=== PATIENT | female | born 1940 | race Caucasian/White ===

== ENCOUNTER → 2016-05-26 | Outpatient (CLI) | payer MEDICARE, BC ==
[2016-05-26 16:27] LABS: Blood Urea Nitrogen 17 mg/dL (7-17); Non-African American GFR(MDRD) >60 (>60 ml/min/1.73 sqM)
--- NOTE | 2016-05-27 08:06 | CT ---
EXAMINATION TYPE: CT angio neck DATE OF EXAM: 05/26/2016 5:02 PM COMPARISON: NONE HISTORY: Pt states of bilateral carotid stenosis. CT DLP: 192.7 mGycm Automated exposure control for dose reduction was used. TECHNIQUE: Performed with IV Contrast, patient injected with 65 mL of Omnipaque 350. . FINDINGS: There is extensive atherosclerotic plaque involving the left carotid bifurcation and proximal left IC A measuring approximately 75-80% stenosis. There is mild atherosclerotic plaque of the left common ca rotid artery. Right carotid bifurcation demonstrates extensive plaque involving the carotid bifurcation with approx imately 70% stenosis. Mild atherosclerotic change of the origin of the great vessels and aortic arch noted. There is degenerative change of the spine with facet arthropathy. Lung apices are clear. IMPRESSION: THERE IS SIGNIFICANT BILATERAL STENOSES INVOLVING THE PROXIMAL ICA BILATERALLY GREATER ON THE LEFT. G IVEN THE LIMITATION OF THE EXAM CORRELATION WITH ULTRASOUND IS RECOMMENDED FOR CONFIRMATION.
== END | disposition home or self-care (01) ==
LOC: RADCTMAIN 15:55
PROVIDERS: ATTEND Internal Medicine Clinical Cardiac Electrophysiology
DX: I65.23 Occlusion and stenosis of bilateral carotid arteries (principal)
CPT/HCPCS: 82565; 84520; 70498; 36415; Q9967

== ENCOUNTER 2016-06-23 06:28 | Day surgery (SDC) | payer MEDICARE, BC ==
[2016-06-17 16:04] VITALS: BMI 26.6
[~2016-06-23 06:28] MED LIST: SODIUM CHLORIDE 0.9% 1,000 ML IV SCH
[2016-06-23 07:13] LABS: Basophils % (A) 1 %; CH 32.3; CHCM 33.9; Eosinophils # (A) 0.3 k/uL (0-0.7); Eosinophils % (A) 5 %; HCT 38.3 % (34.0-46.0); HGB 12.8 gm/dL (11.4-16.0); Luc # (Auto) 0.14; Luc % (Auto) 3; Lymphocytes # (A) 1.3 k/uL (1.0-4.8); Lymphocytes % (A) 25 %; MCH 31.9 pg (25.0-35.0); MCHC 33.4 g/dL (31.0-37.0); MCV 95.5 fL (80.0-100.0); Mean Platelet Volume 6.9; Monocytes # (A) 0.3 k/uL (0-1.0); Monocytes % (A) 6 %; Neutrophils # (A) 3.2 k/uL (1.3-7.7); Neutrophils % (A) 61 %; RBC 4.01 m/uL (3.80-5.40); RDW 13.1 % (11.5-15.5); WBC 5.3 k/uL (3.8-10.6); WBC (Perox) 5.24
[2016-06-23 07:16] VITALS: RESP 16; TEMP 98.7
[2016-06-23 07:31] LABS: Potassium 4.5 mmol/L (3.5-5.1)
[2016-06-23] MEDS: MIDAZOLAM 2 MG/2 ML VIAL IV ONE ×2 (08:35→09:00)
[2016-06-23] MEDS: LIDOCAINE 2% INJ 20 MG/ML SQ ONE ×2 (08:42→08:56)
[2016-06-23] MEDS ORDERED: IOHEXOL 350 MG/ML 100 ML BOTTLE INJ ONE (09:29)
[2016-06-23] MEDS ORDERED: SODIUM CHLORIDE 0.9% 1,000 ML IV SCH (09:30)
--- NOTE | 2016-06-23 10:10 | IR ---
EXAMINATION TYPE: IR angio aortic arch DATE OF EXAM: 06/23/2016 10:06 AM COMPARISON: NONE HISTORY: Peripheral vascular occlusive disease. Fluoroscopy was applied to the referring clinician. See dictated report from cardiology.
[2016-06-23] MEDS ORDERED: ACETAMINOPHEN TAB 325 MG TAB PO PRN (11:25)
[2016-06-23 16:03] VITALS: BP 156/75; PULSE 71
--- NOTE | 2016-06-23 21:07 | PCN ---
DATE OF PROCEDURE: 06/23/2016 PERFORMING PHYSICIAN: Otis Valentine M.D., cleaning laborer. PROCEDURES PERFORMED: 1. Aortic arch angiogram. 2. Selective right and left carotid angiogram. 3. Bilateral iliac angiogram. INDICATION: This is a pleasant 75-year-old female patient who sees Dr. Mancia as an outpatient who underwent a carotid duplex study which showed intermediate disease. She underwent carotid MRA which showed severe bilateral disease. The carotid angiogram today ( ) APPROACH: Right and left common femoral arteries. COMPLICATIONS: None. LEVEL OF SEDATION: Moderate. PROCEDURE DESCRIPTION: After obtaining informed consent, the patient was brought to the cardiac mason tender restoration labor. The right common femoral artery was cannulated using micropuncture technique. The micropuncture wire passed easily, then I placed a 4 [place]ian micropuncture sheath in the right common femoral artery. I did selective right common femoral artery angiogram, which showed that the micropuncture sheath was above the inguinal ligament, so I decided to pull the sheath out and apply pressure for 10 minutes. After we were assured that there was hemostasis, I accessed the left common femoral artery using ultrasound guidance. The micropuncture wire passed easily, then I placed a 5 [place]ian sheath in the left common femoral artery. Subsequently I did an aortic arch angiogram using a 5 [place]ian pigtail catheter. Then I did selective right and left carotid angiogram using JB2 catheter. The procedure was completed without any complication. SELECTIVE PERIPHERAL ANGIOGRAM: 1. The aortic arch is a type II aortic arch. It is a calcified arch. 2. The right carotid system. The right common carotid artery appeared to be angiographically normal. The right internal carotid artery by the takeoff from the right common has disease in the range of 50%. The right external carotid artery appeared to have mild disease only. 3. The left carotid system. The left common carotid artery appeared to be angiographically normal. The left internal carotid artery by the ostium has disease that seems to be in the range of 60% to 70%. The left external carotid artery appeared to have a tight lesion in the range 70% to 80%. 4. Common iliac angiogram. The right common iliac artery is angiographically normal and the right external iliac artery appeared to be occluded distally just by the inguinal ligament. The left common and left external iliac arteries are angiographically normal. CONCLUSION: 1. Intermediate bilateral internal carotid disease. 2. Type II aortic arch. 3. Occluded right common femoral artery. POST-PROCEDURE MANAGEMENT: 1. Maximize medical treatment. 2. Followup with the patient.
== END 2016-06-23 16:02 | disposition home or self-care (01) ==
LOC: CATHCVL 06:28
PROVIDERS: ATTEND Internal Medicine Interventional Cardiology
DX: I65.23 Occlusion and stenosis of bilateral carotid arteries (principal); I10 Essential (primary) hypertension; I70.0 Atherosclerosis of aorta; Q27.8 Other specified congenital malformations of peripheral vascular system; Z82.3 Family history of stroke; Z87.891 Personal history of nicotine dependence; Z95.5 Presence of coronary angioplasty implant and graft; I73.9 Peripheral vascular disease, unspecified; E78.5 Hyperlipidemia, unspecified; Z79.82 Long term (current) use of aspirin; Z79.899 Other long term (current) drug therapy; Z88.2 Allergy status to sulfonamides
CPT/HCPCS: 36140; 75716; 36222; 80051; 85025; 99152; 99153 ×3; C1769 ×4; C1894; J2001; J2250; Q9967; 75625

== ENCOUNTER 2016-10-02 17:16 | Emergency (ER) | payer MEDICARE, BC ==
[2016-10-02 17:23] VITALS: RESP 18
--- NOTE | 2016-10-02 17:34 | ED ---
Fall HPI - General Chief Complaint: Fall Stated Complaint: Fall Time Seen by Provider: 10/02/16 17:24 Source: patient, RN notes reviewed Mode of arrival: ambulatory - History of Present Illness Initial Comments: Patient is a 75-year-old female presents to the emergency room for evaluation of a fall injury. Patient states she was walking along the sidewalk and tripped and fell landing on her face and catching herself with her bilateral hands. Patient denies loss of consciousness. Patient states that her nose hit the pavement. Patient states she is pain over her nose and has an abrasion over her chin. Patient also states that she's having right and left hand pain from catching herself. Patient denies headache or dizziness. Patient denies changes in vision. Patient denies neck pain. Patient denies ringing ears. Patient denies chest pain or shortness of breath. Patient's daughter is present with patient. Patient's daughter states that she did not witness the incident happen. Patient's daughter states that she noticed patient was bleeding when she came into the house. Patient states that she was bleeding from her nose but that has subsided. Patient does admit that she is on Plavix. Patient denies any other injuries during incident. - Related Data Home Medications Medication Instructions Recorded Confirmed Aspirin [Adult Low Dose Aspirin EC] 81 mg PO BID 06/17/16 10/02/16 Atenolol [Tenormin] 50 mg PO BID 06/17/16 10/02/16 Atorvastatin [Lipitor] 80 mg PO HS 06/17/16 10/02/16 Cholecalciferol [Vitamin D3] 2,000 units PO DAILY 06/17/16 10/02/16 Furosemide [Lasix] 20 mg PO MOWEFR 06/17/16 10/02/16 Lisinopril [Zestril] 20 mg PO BID 06/17/16 10/02/16 Nitroglycerin Sl Tabs [Nitrostat] 0.4 mg SUBLINGUAL DIRECTED PRN 06/17/16 Clopidogrel Bisulfate [Plavix] 75 mg PO DAILY 10/02/16 10/02/16 Multivitamin [Multivitamins Adult 2 tab PO HS 10/02/16 10/02/16 Gummies] Previous Rx's Medication Instructions Recorded Amoxicillin/Potassium Clav 1 each PO Q12HR #20 tab 10/02/16 [Augmentin 875-125 Tablet] Allergies Allergy/AdvReac Type Severity Reaction Status Date / Time sulfamethoxazole AdvReac Nausea & Verified 10/02/16 18:13 [From Bactrim] Vomiting & Diarrhea trimethoprim [From Bactrim] AdvReac Nausea & Verified 10/02/16 18:13 Vomiting & Diarrhea Review of Systems ROS Statement: Those systems with pertinent positive or pertinent negative responses have been documented in the HPI. ROS Other: All systems not noted in ROS Statement are negative. Past Medical History Past Medical History: Atrial Fibrillation, Coronary Artery Disease (CAD), Chest Pain / Angina, Hypertension, Osteoarthritis (OA) Additional Past Medical History / Comment(s): varicose veins, lower lobe of lung "collapsed", gallstones, History of Any Multi-Drug Resistant Organisms: None Reported Past Surgical History: Breast Surgery, Heart Catheterization With Stent, Tubal Ligation Additional Past Surgical History / Comment(s): two cardiac stents, rt breast lumpectomy Past Anesthesia/Blood Transfusion Reactions: Motion Sickness, Postoperative Nausea & Vomiting (PONV) Date of Last Stent Placement:: 10/2007 Past Psychological History: No Psychological Hx Reported Smoking Status: Former smoker Past Alcohol Use History: None Reported Additional Past Alcohol Use History / Comment(s): quit smoking 2003, smoked for 40 yrs, 1 PPD Past Drug Use History: None Reported - Past Family History Mother Family Medical History: No Reported History Brother(s) Family Medical History: Cancer General Exam - General Exam Comments Initial Comments: Sitting in exam room, no acute distress. Limitations: no limitations General appearance: alert, in no apparent distress Expanded Head exam: Present: abrasion (Abrasion over nasal bridge and over chin), general tenderness (Tenderness on palpating over nasal bridge) Eye exam: Present: normal appearance, PERRL, EOMI Pupils: Present: normal accommodation Neck exam: Present: normal inspection, full ROM. Absent: tenderness, lymphadenopathy Respiratory exam: Present: normal lung sounds bilaterally. Absent: respiratory distress Cardiovascular Exam: Present: regular rate, normal rhythm, normal heart sounds Left Hand Wrist exam: Present: full ROM, tenderness (Tenderness and swelling on palpating over distal forearm/wrist), swelling Neuro motor exam: Present: wrist extension intact, thumb opposition intact, thumb IP flexion intact, thumb adduction intact, fingers 2-5 abduction intact Vascular: Present: normal capillary refill (Capillary refill less than 2 seconds ), radial pulse (2+), ulnar pulse (2+) Right Hand Wrist exam: Present: full ROM, tenderness (Tenderness and swelling over the fourth and fifth MCP joint), swelling. Absent: normal inspection Neuro motor exam: Present: wrist extension intact, thumb opposition intact, thumb IP flexion intact, thumb adduction intact, fingers 2-5 abduction intact Vascular: Present: normal capillary refill (Capillary refill less than 2 seconds ), radial pulse (2+), ulnar pulse (2+) Back exam: Present: normal inspection Neurological exam: Present: alert, oriented X3, CN II-XII intact Expanded Patient oriented to: Present: person, place, time Speech: Present: fluid speech Sensory exam: Upper Extremity Light Touch: Normal, Lower Extremity Light Touch: Normal Motor strength exam: RUE: 5, LUE: 5, RLE: 5, LLE: 5 Eye Response: (4) open spontaneously Motor Response: (6) obeys commands Verbal Response: (5) oriented Psychiatric exam: Present: normal affect, normal mood Skin exam: Present: warm, dry, intact, normal color. Absent: rash Course Vital Signs 10/02/16 17:18 Temperature 100 F H Pulse Rate 87 Respiratory 18 Rate Blood Pressure 192/91 O2 Sat by Pulse 95 Oximetry Medical Decision Making - Medical Decision Making Patient is a 80-year-old female presents to the emergency room for evaluation of fall injury. Brain/C-spine CT negative for any acute processes. A facial CT significant for left nasal fracture. Patient be placed on Augmentin and advised to follow-up with ear, nose and throat specialist. Bilateral hand and wrist x-rays negative for any acute fractures or dislocations. Discussed with patient. Patient states she understands everything that was discussed with her. Return parameters discussed. Case discussed with Dr. Davis. - Radiology Data Radiology results: report reviewed, image reviewed Disposition Clinical Impression: Fall, Nasal fracture, Traumatic hematoma of right hand Disposition: HOME SELF-CARE Condition: Good Instructions: Nasal Fracture (ED), Fall Prevention for Older Adults (ED) Additional Instructions: Take antibiotics as directed. Ice on and off for 10-15 minutes for the next 24- 48 hours. Please follow-up with ear, nose and throat specialist on Tuesday. If hand pain continues for the next 7-10 days please follow up with primary care provider for reevaluation. If new symptoms develop or symptoms worsen, please return to the ER. Prescriptions: Amoxicillin/Potassium Clav [Augmentin 875-125 Tablet] 1 each PO Q12HR #20 tab Referrals: Rg Loo MD [Primary Care Provider] - 1-2 days Zackery Briones MD [STAFF PHYSICIAN] - 1-2 days Time of Disposition: 18:45
[2016-10-02] MEDS ORDERED: DIPH,PERTUS(ACELL)TETVAC-LF 0.5 ML VIAL IM ONE (17:37)
--- NOTE | 2016-10-02 18:21 | CT ---
EXAMINATION TYPE: CT brain nisha wo con DATE OF EXAM: 10/02/2016 6:10 PM COMPARISON: NONE HISTORY: 75-year-old female fell and hit face. Abrasions to the bridge of the nose and chin. Patien t denies head or neck complaints. CT DLP: 1218.6 mGycm Automated exposure control for dose reduction was used. Technique: Examination of the head was done in axial plane without intravenous contrast. Coronal and sagittal reconstructions performed. CT of the cervical spine was obtained in axial plane without intravenous injection of contrast mater ial. Coronal and sagittal reformatted images were obtained from the axial views for evaluation of f ractures, spinal alignment and canal. FINDINGS: Head: There is no evidence of acute intracranial hemorrhage, acute ischemic changes, mass, mass-effect, or extra-axial fluid collection. There is no effacement of cerebral sulci or basal subarachnoid cister ns. There is no hydrocephalus. There is no midline shift. Lui-white matter distinction is preserv ed. No calvarial fracture. Mastoid air cells are pneumatized. Cervical spine: No craniocervical junction abnormality, predental space widening, or prevertebral soft tissue swellin g. There is degenerative change at the C1 dens articulation as well as at the cranio-occipital articulat ion. Preserved alignment of the cervical spine with reversal of the normal cervical lordosis. Mild multile susanne degenerative disc disease. There is disc osteophyte complex at C6-C7 which causes mild spinal can al stenosis. Scattered facet and uncovertebral joint degenerative change. This causes very minimal mild neuroforaminal stenoses in the mid to lower cervical spine. There is a 1 cm nodule within the left vallecular space, axial image 44 that can be correlated with d irect visualization. No acute fracture of the cervical spine. Sagittal and coronal reformatted images confirm above findings. COMBINED IMPRESSION: 1. No acute intracranial abnormality seen. 2. No acute fracture or malalignment of the cervical spine. 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 Mild spinal canal stenosis at C6-C7 in variable mild neuroforaminal stenoses. 3. A 1 cm nodule within the left vallecular space was present on 05/26/2016 and is suspected to repres ent a mucosal retention cyst. This can be correlated with direct visualization.
--- NOTE | 2016-10-02 18:28 | CT ---
EXAMINATION TYPE: CT facial bones wo con DATE OF EXAM: 10/02/2016 6:12 PM COMPARISON: NONE HISTORY: 75-year-old female fell and hit face. Abrasions to the bridge of the nose and chin. Patien t denies head or neck complaints. TECHNIQUE: Contiguous axial scanning of the facial bones without IV contrast. Coronal performed. CT DLP: 880.7 mGycm Automated exposure control for dose reduction was used. FINDINGS: There is a mildly depressed and mildly angulated multi segmental fracture of the left nasal bone with associated soft tissue contusion and hemorrhagic debris within the nasal cavity. Rightward nasal sep deacon deviation was present previously Moderate chronic mucosal thickening within the ethmoid air cells. No additional facial bone fracture. Orbits and globes appear intact. The patient is edentulous. Puja ble remains intact. IMPRESSION: MULTISEGMENTAL, MILDLY DEPRESSED FRACTURES OF THE LEFT NASAL BONE. ASSOCIATED SOFT TISSUE CONTUSION A ND HEMORRHAGIC DEBRIS WITHIN THE NASAL CAVITY.
--- NOTE | 2016-10-02 18:31 | XR ---
EXAMINATION TYPE: XR wrist complete 4 views BILATERAL, XR hand complete 3 views bilateral DATE OF EXAM: 10/02/2016 6:09 PM COMPARISON: NONE HISTORY: 75-year-old female bilateral pain after fall FINDINGS: Wrists: On both sides, the radiocarpal and distal radioulnar joints as well as the midcarpal compartments iris ear intact. No acute fracture, subluxation, or dislocation. Hands: Degenerative changes at the base of the thumb on both sides, right greater than left. Prominent soft tissue contusion overlying the patient's right knuckles. Osteoarthritic changes throughout the DIP joints and to a lesser extent within the PIP joints. No acute fracture, subluxation, or dislocation. IMPRESSION: Osteoarthritic changes throughout both hands. Wrists and hands without acute osseous abnormality seen .
[2016-10-02 18:59] VITALS: BP 192/88; PULSE 82; TEMP 97.9
== END 2016-10-02 18:59 | disposition home or self-care (01) ==
LOC: EC 17:16
DX: S02.2XXA Fracture of nasal bones, initial encounter for closed fracture (principal); S60.221A Contusion of right hand, initial encounter; S00.81XA Abrasion of other part of head, initial encounter; M79.89 Other specified soft tissue disorders; M79.642 Pain in left hand; I10 Essential (primary) hypertension; I25.10 Atherosclerotic heart disease of native coronary artery without angina pectoris; M19.90 Unspecified osteoarthritis, unspecified site; Z87.891 Personal history of nicotine dependence; Z79.82 Long term (current) use of aspirin; Z79.02 Long term (current) use of antithrombotics/antiplatelets; Z79.899 Other long term (current) drug therapy; Z88.1 Allergy status to other antibiotic agents; Z23 Encounter for immunization; Z86.79 Personal history of other diseases of the circulatory system; W01.198A Fall on same level from slipping, tripping and stumbling with subsequent striking against other object, initial encounter; Y93.01 Activity, walking, marching and hiking; Y92.480 Sidewalk as the place of occurrence of the external cause
CPT/HCPCS: 70450; 70486; 72125; 90471; 90715; 99284

== ENCOUNTER → 2016-10-22 | Outpatient (CLI) | payer MEDICARE, BC ==
[2016-10-22 14:34] LABS: Blood Urea Nitrogen 24 mg/dL (7-17); Non-African American GFR(MDRD) >60 (>60 ml/min/1.73 sqM)
--- NOTE | 2016-10-22 15:42 | CT ---
EXAMINATION TYPE: CT chest w con DATE OF EXAM: 10/22/2016 COMPARISON: Chest x-ray from one week ago. CT abdomen and pelvis March 13, 2015. HISTORY: Chest pain and shortness of breath. CT DLP: 601.00 mGycm. Automated Exposure Control for Dose Reduction was Utilized. TECHNIQUE: CT scan of the thorax is performed following with IV Contrast, patient injected with 100 mL of Omnipaque 300. FINDINGS: LUNGS: Mild apical scarring is present bilaterally. There is calcified pleural plaques medially and i nferiorly and posteriorly in the right lower lung. Adjacent to posterior plaque there is masslike con solidation measuring 4.7 x 1.8 cm on axial image 39 and coronal image 71 with broad-based pleural com ponent. Differential includes round atelectasis especially given adjacent pleural calcifications and mild pleural thickening and/or tiny effusion. Finding is presumed benign as comparison CT abdomen pel vis March 13, 2015 shows stable similar findings. MEDIASTINUM: There are no greater than 1 cm hilar or mediastinal lymph nodes. There are subcentimeter prevascular and paratracheal lymph nodes. No pericardial effusion is seen. Coronary artery calcif ication is present which is noted marker for coronary artery disease. There is moderate atherosclerot ic change of aorta extending into branch vessels. OTHER: Slightly asymmetric soft tissue laterally right breast favors asymmetric fibroglandular tissue but can be correlated with outside mammograms if desired. IMPRESSION: 1. Three-vessel coronary artery calcification is present which is noted marker for coronary artery di sease. There is slightly more prominent proximal LAD could reflect coronary stent. Clinical correlati on advised. 2. Calcified pleural plaques right lower lung redemonstrated could reflect product of old trauma or a sbestos exposure. Clinical correlation advised. Adjacent suspicious area on x-ray is unchanged from O ctober 2014 CT and thus presumed benign.
== END | disposition home or self-care (01) ==
LOC: RADCTMAIN 13:41
PROVIDERS: ATTEND Internal Medicine Critical Care Medicine
DX: J92.9 Pleural plaque without asbestos (principal); I25.10 Atherosclerotic heart disease of native coronary artery without angina pectoris; Z88.2 Allergy status to sulfonamides
CPT/HCPCS: 82565; 84520; 71260; 36415; Q9967

== ENCOUNTER 2016-12-10 07:14 | Inpatient (IN) | payer MEDICARE, BC ==
[2016-12-10] MEDS ORDERED: ONDANSETRON 4 MG/2 ML VIAL IVP STA (07:39)
[2016-12-10] MEDS ORDERED: MORPHINE SULFATE 4 MG/ML SYRINGE IV STA (07:39)
[2016-12-10] MEDS ORDERED: SODIUM CHLORIDE 0.9% 1,000 ML IV STA ×3 (07:39→10:17)
[2016-12-10] MEDS ORDERED: RX INFO: IV CONTRAST WAS GIVEN 1 EACH MISC MISCELLANE PRN (07:39)
[2016-12-10 08:03] LABS: Basophils % (A) 0 %; CH 32.1; CHCM 33.3; Eosinophils % (A) 0 %; HCT 43.4 % (34.0-46.0); HDW 2.53; HGB 14.5 gm/dL (11.4-16.0); Luc # (Auto) 0.04; Luc % (Auto) 0; Lymphocytes # (A) 0.5 k/uL (1.0-4.8); Lymphocytes % (A) 3 %; MCH 32.4 pg (25.0-35.0); MCHC 33.4 g/dL (31.0-37.0); MCV 96.8 fL (80.0-100.0); Monocytes # (A) 0.3 k/uL (0-1.0); Monocytes % (A) 2 %; Neutrophils # (A) 14.3 k/uL (1.3-7.7); Neutrophils % (A) 94 %; RBC 4.48 m/uL (3.80-5.40); RDW 13.8 % (11.5-15.5); WBC 15.2 k/uL (3.8-10.6); WBC (Perox) 14.84
[2016-12-10 08:09] LABS: ALT 78 U/L (9-52); AST 66 U/L (14-36); Alkaline Phosphatase 97 U/L (38-126); Anion Gap 13 mmol/L; Blood Urea Nitrogen 23 mg/dL (7-17); Calcium 9.6 mg/dL (8.4-10.2); Carbon Dioxide 26 mmol/L (22-30); Chloride 101 mmol/L (98-107); Glucose 236 mg/dL (74-99); Non-African American GFR(MDRD) 51 (>60 ml/min/1.73 sqM); Phosphorus 5.5 mg/dL (2.5-4.5); Potassium 4.9 mmol/L (3.5-5.1); Sodium 140 mmol/L (137-145); Total Bilirubin 1.1 mg/dL (0.2-1.3); Total Protein 7.3 g/dL (6.3-8.2)
--- NOTE | 2016-12-10 08:13 | ED ---
General Adult HPI - General Chief complaint: Nausea/Vomiting/Diarrhea Stated complaint: ABD pain Time Seen by Provider: 12/10/16 07:34 Source: patient, RN notes reviewed, old records reviewed Mode of arrival: ambulatory Limitations: no limitations - History of Present Illness Initial comments: This is a 72-year-old female year with nausea vomiting, patient has history of heart disease history of surgery. No fevers, no diarrhea. Mainly dry heaving. Patient also complaining of abdominal pain. she also contacts, no family members with similar complaints - Related Data Home Medications Medication Instructions Recorded Confirmed Aspirin [Adult Low Dose Aspirin EC] 81 mg PO HS 06/17/16 12/10/16 Atenolol [Tenormin] 50 mg PO BID 06/17/16 12/10/16 Atorvastatin [Lipitor] 80 mg PO HS 06/17/16 12/10/16 Cholecalciferol [Vitamin D3] 2,000 units PO DAILY 06/17/16 12/10/16 Furosemide [Lasix] 20 mg PO MOWEFR 06/17/16 12/10/16 Lisinopril [Zestril] 20 mg PO BID 06/17/16 12/10/16 Nitroglycerin Sl Tabs [Nitrostat] 0.4 mg SUBLINGUAL DIRECTED PRN 06/17/16 Clopidogrel Bisulfate [Plavix] 75 mg PO DAILY 10/02/16 12/10/16 Multivitamin [Multivitamins Adult 2 tab PO DAILY 10/02/16 12/10/16 Gummies] Allergies Allergy/AdvReac Type Severity Reaction Status Date / Time latex Allergy Rash/Hives Verified 12/10/16 08:23 minocycline AdvReac Nausea & Verified 12/10/16 08:23 Vomiting & Diarrhea sulfamethoxazole AdvReac Nausea & Verified 12/10/16 08:23 [From Bactrim] Vomiting & Diarrhea trimethoprim [From Bactrim] AdvReac Nausea & Verified 12/10/16 08:23 Vomiting & Diarrhea Review of Systems ROS Statement: Those systems with pertinent positive or pertinent negative responses have been documented in the HPI. ROS Other: All systems not noted in ROS Statement are negative. Past Medical History Past Medical History: Atrial Fibrillation, Coronary Artery Disease (CAD), Chest Pain / Angina, Hypertension, Osteoarthritis (OA) Additional Past Medical History / Comment(s): varicose veins, lower lobe of lung "collapsed", gallstones, History of Any Multi-Drug Resistant Organisms: MRSA Date of last positivie culture/infection: 11/18/16 MDRO Source:: Head Past Surgical History: Breast Surgery, Heart Catheterization With Stent, Tubal Ligation Additional Past Surgical History / Comment(s): two cardiac stents, rt breast lumpectomy Past Anesthesia/Blood Transfusion Reactions: Motion Sickness, Postoperative Nausea & Vomiting (PONV) Date of Last Stent Placement:: 10/2007 Past Psychological History: No Psychological Hx Reported Smoking Status: Former smoker Past Alcohol Use History: None Reported Past Drug Use History: None Reported - Past Family History Mother Family Medical History: No Reported History Brother(s) Family Medical History: Cancer General Exam Limitations: no limitations General appearance: alert, in no apparent distress Head exam: Present: atraumatic, normocephalic, normal inspection Eye exam: Present: normal appearance, PERRL, EOMI. Absent: scleral icterus, conjunctival injection, periorbital swelling ENT exam: Present: normal exam, mucous membranes moist Neck exam: Present: normal inspection. Absent: tenderness, meningismus, lymphadenopathy Respiratory exam: Present: normal lung sounds bilaterally. Absent: respiratory distress, wheezes, rales, rhonchi, stridor Cardiovascular Exam: Present: regular rate, normal rhythm, normal heart sounds. Absent: systolic murmur, diastolic murmur, rubs, gallop, clicks GI/Abdominal exam: Present: soft, normal bowel sounds. Absent: distended, tenderness, guarding, rebound, rigid Extremities exam: Present: normal inspection, full ROM, normal capillary refill. Absent: tenderness, pedal edema, joint swelling, calf tenderness Back exam: Present: normal inspection Neurological exam: Present: alert, oriented X3, CN II-XII intact Psychiatric exam: Present: normal affect, normal mood Skin exam: Present: warm, dry, intact, normal color. Absent: rash Course Vital Signs 12/10/16 12/10/16 12/10/16 07:18 08:09 09:09 Temperature 98.5 F Pulse Rate 86 83 83 Respiratory 18 18 18 Rate Blood Pressure 182/84 160/72 182/67 O2 Sat by Pulse 98 98 96 Oximetry - Reevaluation(s) Reevaluation #1: 12/10/16 08:12 Patient's symptoms are improved at this time Reevaluation #2: 12/10/16 10:20 Patient's symptoms are continuing to improve EKG Findings - EKG Comments: EKG Findings:: EKG shows sinus rhythm rate of 83, LA 150, QRS 88, QTC 479 Medical Decision Making - Medical Decision Making 76 female ER for evaluation of abdominal pain, severe abdominal pain, Nausea vomiting and diarrhea, positive acute pancreatitis, admitted for IV fluids nothing by mouth, pain control antibiotics - Lab Data Result diagrams: 12/10/16 07:42 12/10/16 07:42 Lab Results 12/10/16 12/10/16 12/10/16 Range/Units 07:42 07:42 07:42 WBC 15.2 H (3.8-10.6) k/uL RBC 4.48 (3.80-5.40) m/uL Hgb 14.5 (11.4-16.0) gm/dL Hct 43.4 (34.0-46.0) % MCV 96.8 (80.0-100.0) fL MCH 32.4 (25.0-35.0) pg MCHC 33.4 (31.0-37.0) g/dL RDW 13.8 (11.5-15.5) % Plt Count 263 (150-450) k/uL Neutrophils % 94 % Lymphocytes % 3 % Monocytes % 2 % Eosinophils % 0 % Basophils % 0 % Neutrophils # 14.3 H (1.3-7.7) k/uL Lymphocytes # 0.5 L (1.0-4.8) k/uL Monocytes # 0.3 (0-1.0) k/uL Eosinophils # 0.0 (0-0.7) k/uL Basophils # 0.0 (0-0.2) k/uL PT (9.0-12.0) sec INR (<1.2) APTT (22.0-30.0) sec Sodium 140 (137-145) mmol/L Potassium 4.9 (3.5-5.1) mmol/L Chloride 101 (98-107) mmol/L Carbon Dioxide 26 (22-30) mmol/L Anion Gap 13 mmol/L BUN 23 H (7-17) mg/dL Creatinine 1.06 H (0.52-1.04) mg/dL Est GFR (MDRD) Af Amer >60 (>60 ml/min/1.73 sqM) Est GFR (MDRD) Non-Af 51 (>60 ml/min/1.73 sqM) Glucose 236 H (74-99) mg/dL Plasma Lactic Acid Leo (0.7-2.0) mmol/L Calcium 9.6 (8.4-10.2) mg/dL Phosphorus 5.5 H (2.5-4.5) mg/dL Magnesium 2.0 (1.6-2.3) mg/dL Total Bilirubin 1.1 (0.2-1.3) mg/dL AST 66 H (14-36) U/L ALT 78 H (9-52) U/L Alkaline Phosphatase 97 (38-126) U/L Total Creatine Kinase 63 (30-135) U/L CK-MB (CK-2) 0.7 (0.0-2.4) ng/mL CK-MB (CK-2) Rel Index 1.1 Troponin I <0.012 (0.000-0.034) ng/mL Total Protein 7.3 (6.3-8.2) g/dL Albumin 4.4 (3.5-5.0) g/dL Lipase 11535 H (23-300) U/L Urine Color Urine Appearance (Clear) Urine pH (5.0-8.0) Ur Specific Alfred (1.001-1.035) Urine Protein (Negative) Urine Glucose (UA) (Negative) Urine Ketones (Negative) Urine Blood (Negative) Urine Nitrite (Negative) Urine Bilirubin (Negative) Urine Urobilinogen (<2.0) mg/dL Ur Leukocyte Esterase (Negative) Urine WBC (0-5) /hpf Ur Squamous Epith Cells (0-4) /hpf Hyaline Casts (0-2) /lpf Urine Mucus (None) /hpf 12/10/16 12/10/16 12/10/16 Range/Units 07:42 08:05 08:55 WBC (3.8-10.6) k/uL RBC (3.80-5.40) m/uL Hgb (11.4-16.0) gm/dL Hct (34.0-46.0) % MCV (80.0-100.0) fL MCH (25.0-35.0) pg MCHC (31.0-37.0) g/dL RDW (11.5-15.5) % Plt Count (150-450) k/uL Neutrophils % % Lymphocytes % % Monocytes % % Eosinophils % % Basophils % % Neutrophils # (1.3-7.7) k/uL Lymphocytes # (1.0-4.8) k/uL Monocytes # (0-1.0) k/uL Eosinophils # (0-0.7) k/uL Basophils # (0-0.2) k/uL PT 9.9 (9.0-12.0) sec INR 1.0 (<1.2) APTT 19.8 L (22.0-30.0) sec Sodium (137-145) mmol/L Potassium (3.5-5.1) mmol/L Chloride (98-107) mmol/L Carbon Dioxide (22-30) mmol/L Anion Gap mmol/L BUN (7-17) mg/dL Creatinine (0.52-1.04) mg/dL Est GFR (MDRD) Af Amer (>60 ml/min/1.73 sqM) Est GFR (MDRD) Non-Af (>60 ml/min/1.73 sqM) Glucose (74-99) mg/dL Plasma Lactic Acid Leo 2.8 H* (0.7-2.0) mmol/L Calcium (8.4-10.2) mg/dL Phosphorus (2.5-4.5) mg/dL Magnesium (1.6-2.3) mg/dL Total Bilirubin (0.2-1.3) mg/dL AST (14-36) U/L ALT (9-52) U/L Alkaline Phosphatase (38-126) U/L Total Creatine Kinase (30-135) U/L CK-MB (CK-2) (0.0-2.4) ng/mL CK-MB (CK-2) Rel Index Troponin I (0.000-0.034) ng/mL Total Protein (6.3-8.2) g/dL Albumin (3.5-5.0) g/dL Lipase (23-300) U/L Urine Color Yellow Urine Appearance Cloudy H (Clear) Urine pH 6.0 (5.0-8.0) Ur Specific Alfred 1.035 (1.001-1.035) Urine Protein 1+ H (Negative) Urine Glucose (UA) Trace H (Negative) Urine Ketones Negative (Negative) Urine Blood Negative (Negative) Urine Nitrite Negative (Negative) Urine Bilirubin Negative (Negative) Urine Urobilinogen <2.0 (<2.0) mg/dL Ur Leukocyte Esterase Negative (Negative) Urine WBC 11 H (0-5) /hpf Ur Squamous Epith Cells 2 (0-4) /hpf Hyaline Casts 12 H (0-2) /lpf Urine Mucus Rare H (None) /hpf - Radiology Data Radiology results: report reviewed (CT head and pelvis shows findings consistent with acute pancreatitis, ultrasound pending), image reviewed Disposition Clinical Impression: Dehydration, Acute pancreatitis Disposition: ADMITTED IP TO THIS [facility] Condition: Fair Referrals: Rg Loo MD [Primary Care Provider] - 1-2 days
[2016-12-10 08:20] LABS: Creatine Kinase 63 U/L (30-135)
[2016-12-10 08:29] LABS: Prothrombin Time 9.9 sec (9.0-12.0)
[2016-12-10 08:33] LABS: Creatine Kinase MB 0.7 ng/mL (0.0-2.4); Troponin I <0.012 ng/mL (0.000-0.034)
[2016-12-10 08:49] LABS: Partial Thromboplastin Time 19.8 sec (22.0-30.0)
--- NOTE | 2016-12-10 09:19 | CT ---
EXAMINATION TYPE: CT abdomen pelvis w con DATE OF EXAM: 12/10/2016 COMPARISON: 03/13/[address] chest 10/22/2016 HISTORY: 76-year-old female with abdominal pain, vomiting, diarrhea. TECHNIQUE: Contiguous axial scanning of the abdomen and pelvis following administration of 100 ml Omn ipaque 300 IV contrast. Delayed images through the kidneys and coronal/sagittal reconstructions perf ormed. CT DLP: 1091.8 mGycm Automated exposure control for dose reduction was used. FINDINGS: Heart is normal size without pericardial effusion. Coronary vessel calcifications are present. Stable pleural thickening and calcification along the right base with associated subpleural masslike consolidation posterior right lower lobe measuring up to 4.9 cm wide, stable from 03/13/2015 suggesti ng rounded atelectasis. Strandy areas of atelectasis are present in the lower lungs. No pleural effus ion. Small hiatal hernia. No focal liver lesion. Portal venous system is patent. No abnormal gallbladder distention. However, there is mild gallbladder wall thickening and dependent cholelithiasis. There is edematous fat stranding and inflammation within the norberto hepatic, peripancr eatic, and retroperitoneal regions, new from prior exam with a confluent edema and fluid tracking inf erior to the pancreas along the perirenal fascia on both sides. The most focal area of confluent melanie a is present inferior to the pancreatic body/tail measuring 4.7 x 2.0 x 2.5 cm, axial image 30 and co grayson image 32. The coronal image suggests that this is not a well-formed collection. There may be some edematous changes of the pancreas. No devitalization is evident. Moderate atherosclerotic calcifications within the abdominal aorta without aneurysm. The adrenal glands, kidneys, spleen appear within normal limits. Trace perisplenic fluid. No dilated small bowel or free air. No significant stool burden. No mesenteric or retroperitoneal ly mphadenopathy seen. Bladder not distended. Uterus is visualized with some calcification suggesting underlying calcified f ibroids. Possible thickening of the endometrium up to 9 mm, sagittal image 61. This is suboptimally a ssessed on CT. No abnormal fluid collection in the pelvis or evidence of lymphadenopathy. Bones: Degenerative changes of the hips and lower lumbar spine. No osseous destructive process. Levoc onvex scoliotic curvature. IMPRESSION: 1. MODERATE TO SEVERE INFLAMMATORY EDEMA WITH MODERATE RETROPERITONEAL FLUID TRACKING INFERIORLY. THE LARGEST FOCAL AREA OF FLUID MEASURES 4.7 X 2.5 CM BELOW THE PANCREATIC TAIL/BODY. THE CORONAL SERIES SUGGESTS THAT THIS IS NOT A WELL-FORMED COLLECTION. CORRELATE FOR ACUTE PANCREATITIS. NO CT EVIDENCE FOR PANCREATIC NECROSIS. 2. NOTE CHOLELITHIASIS. MILD GALLBLADDER WALL THICKENING IS LIKELY REACTIVE DUE TO ADJACENT INFLAMMAT ION THERE IS NO ABNORMAL DISTENTION WHICH WOULD TYPICALLY BE SEEN WITH ACUTE CHOLECYSTITIS. 3. POSSIBLE THICKENING OF THE ENDOMETRIAL STRIPE TO 9 MM. CORRELATE CLINICALLY TO EXCLUDE ANY POSTMEN OPAUSAL BLEEDING. NONEMERGENT FOLLOW-UP ULTRASOUND CAN FURTHER ASSESS. 4. SMALL HIATAL HERNIA AND STABLE MASSLIKE CONSOLIDATION AT THE RIGHT BASE WITH ASSOCIATED PLEURAL TH ICKENING AND CALCIFICATION, SUSPECT ROUNDED ATELECTASIS.
[2016-12-10 09:32] LABS: Appearance,Urine Cloudy (Clear); Bilirubin,Urine Negative (Negative); Glucose,Urine (UA) Trace (Negative); Ketones,Urine Negative (Negative); Leukocyte Esterase,Urine Negative (Negative); Mucus,Urine Rare /hpf; Nitrite,Urine Negative (Negative); Particle Count 8555; Protein,Urine 1+ (Negative); Specific Gravity,Urine 1.035 (1.001-1.035); Squamous Epithelial Cell,Urine 2 /hpf (0-4); UA Billing (MACRO vs. MICRO) MICRO; Urobilinogen,Urine <2.0 mg/dL (<2.0); WBC,Urine 11 /hpf (0-5)
[2016-12-10] MEDS ORDERED: SODIUM CHLORIDE 0.9% 1,000 ML IV ONE (10:17)
[2016-12-10] MEDS ORDERED: MORPHINE SULFATE 4 MG/ML SYRINGE IVP STA (10:17)
[2016-12-10] MEDS ORDERED: FAMOTIDINE 20 MG/2 ML VIAL IV STA (10:17)
[2016-12-10] MEDS ORDERED: SODIUM CHLORIDE 0.9% 500 ML IV STA (10:17)
[2016-12-10 11:35] VITALS: BMI 26.6
--- NOTE | 2016-12-10 13:08 | US ---
EXAMINATION TYPE: US gallbladder DATE OF EXAM: 12/10/2016 COMPARISON: Previous study dated 01/19/2012. CLINICAL HISTORY: Pain. EXAM MEASUREMENTS: Liver Length: 14.4 cm Gallbladder Wall: 0.5 cm CBD: 0.7 cm Right Kidney: 9.9 x 3.4 x 4.7 cm Extensive midline bowel gas, study technically difficult and limited. Patient of large body habitus Pancreas: prominent duct, not well visualized due to bowel gas Liver: not fully evaluated due to bowel gas and patient inability to take a deep breath Gallbladder: possible stone seen in neck, limited visualization Evidence for sonographic Ledbetter's sign: tenderness CBD: dilated Right Kidney: inferior pole obscured by overlying bowel gas Limited views of the pancreas are normal. Pancreatic duct is normal in size. The liver is normal in size without biliary dilatation. No definite gallstones are identified. The gallbladder wall is thickened measuring 5 mm. The distal c ommon hepatic duct is upper limits of normal in size measuring 7 mm. There is a positive sonographic Ledbetter's sign. Limited views of the right kidney are unremarkable. IMPRESSION: POSSIBLE ACALCULOUS CHOLECYSTITIS.
[2016-12-10] MEDS: ONDANSETRON 4 MG/2 ML VIAL IVP PRN (16:55)
[2016-12-10] MEDS ORDERED: FAMOTIDINE 20 MG/2 ML VIAL IV SCH (21:00)
[2016-12-11] MEDS: FAMOTIDINE 20 MG/2 ML VIAL IV SCH (08:58)
[2016-12-11] MEDS: ACETAMINOPHEN TAB 325 MG TAB PO PRN ×2 (12:22→21:53)
[2016-12-11] MEDS: MORPHINE SULFATE 4 MG/ML SYRINGE IVP PRN (12:39)
[2016-12-11] MEDS: ATENOLOL 50 MG TAB PO SCH (20:15)
[2016-12-11] MEDS: ASPIRIN 81 MG PO SCH (20:15)
--- NOTE | 2016-12-11 22:11 | P.HPIM ---
History of Present Illness H&P Date: 12/11/16 Chief Complaint: abdominal pain 76 yr old with history of CAD, PAD comes into the hospital with complaints of abdominal pain times 3 days. pt states that the pain is around her umbilicus, worse with any movement, no alleviating factors, associated with nausea, vomiting and loose stools Pt denies having any fevers, chills, chest pain, headaches, blurry vision, urinary frequency or urgency Pt denies any alcohol use, or history of hepatitis. pt states that she had a similar episode a few weeks ago, however resolved without any intervention Review of Systems All systems: negative (noted in HPI) Past Medical History Past Medical History: Atrial Fibrillation, Coronary Artery Disease (CAD), Chest Pain / Angina, Hypertension, Osteoarthritis (OA) Additional Past Medical History / Comment(s): varicose veins, lower lobe of lung "collapsed", gallstones, History of Any Multi-Drug Resistant Organisms: MRSA Date of last positivie culture/infection: 11/18/16 MDRO Source:: Head Past Surgical History: Breast Surgery, Heart Catheterization With Stent, Tubal Ligation Additional Past Surgical History / Comment(s): two cardiac stents, rt breast lumpectomy Past Anesthesia/Blood Transfusion Reactions: Motion Sickness, Postoperative Nausea & Vomiting (PONV) Date of Last Stent Placement:: 10/2007 Past Psychological History: No Psychological Hx Reported Smoking Status: Former smoker Past Alcohol Use History: None Reported Additional Past Alcohol Use History / Comment(s): quit smoking 2003, smoked for 40 yrs, 1 PPD Past Drug Use History: None Reported - Past Family History Mother Family Medical History: No Reported History Brother(s) Family Medical History: Cancer Medications and Allergies Home Medications Medication Instructions Recorded Confirmed Type Aspirin [Adult Low Dose Aspirin EC] 81 mg PO HS 06/17/16 12/10/16 History Atenolol [Tenormin] 50 mg PO BID 06/17/16 12/10/16 History Atorvastatin [Lipitor] 80 mg PO HS 06/17/16 12/10/16 History Cholecalciferol [Vitamin D3] 2,000 units PO DAILY 06/17/16 12/10/16 History Furosemide [Lasix] 20 mg PO MOWEFR 06/17/16 12/10/16 History Lisinopril [Zestril] 20 mg PO BID 06/17/16 12/10/16 History Nitroglycerin Sl Tabs [Nitrostat] 0.4 mg SUBLINGUAL DIRECTED PRN 06/17/16 History Clopidogrel Bisulfate [Plavix] 75 mg PO DAILY 10/02/16 12/10/16 History Multivitamin [Multivitamins Adult 2 tab PO DAILY 10/02/16 12/10/16 History Gummies] Allergies Allergy/AdvReac Type Severity Reaction Status Date / Time latex Allergy Rash/Hives Verified 12/10/16 08:23 minocycline AdvReac Nausea & Verified 12/10/16 08:23 Vomiting & Diarrhea sulfamethoxazole AdvReac Nausea & Verified 12/10/16 08:23 [From Bactrim] Vomiting & Diarrhea trimethoprim [From Bactrim] AdvReac Nausea & Verified 12/10/16 08:23 Vomiting & Diarrhea Physical Exam Vitals: Vital Signs Temp Pulse Resp BP Pulse Ox 12/11/16 20:13 86 148/67 12/11/16 16:16 95 12/11/16 15:00 98.4 F 95 18 117/61 95 12/11/16 07:00 100.0 F H 86 18 122/57 96 12/11/16 00:00 86 16 12/10/16 22:13 99.2 F 86 16 136/57 95 Intake and Output 12/11/16 12/11/16 12/11/16 06:59 14:59 22:59 Intake Total 1330 800 Balance 1330 800 Intake: Intake, IV Titration 1330 800 Amount Sodium Chloride 0.9% 1, 800 000 ml @ 100 mls/hr IV . Q10H STA Rx#:[id number] Sodium Chloride 0.9% 500 1330 ml @ 999 mls/hr IV .Q31M STA Rx#:[id number] Other: # Voids 2 Weight 74.843 kg - Constitutional General appearance: no acute distress - EENT Eyes: PERRLA - Neck Neck: normal ROM - Respiratory Respiratory: bilateral: CTA, negative: dullness, rales, rhonchi - Cardiovascular Rhythm: regular Heart sounds: normal: S1, S2 Abnormal Heart Sounds: no systolic murmur - Gastrointestinal General gastrointestinal: distended, tenderness (diffuse) - Integumentary Integumentary: normal - Neurologic Neurologic: CNII-XII intact - Psychiatric Psychiatric: A&O x's 3 Results CBC & Chem 7: 12/10/16 07:42 12/10/16 07:42 Labs: Microbiology - Last 24 Hours (Table) 12/10/16 16:27 Blood Culture - Preliminary Blood No Growth after 24 hours 12/10/16 16:44 Blood Culture - Preliminary Blood No Growth after 24 hours 12/10/16 08:55 Urine Culture - Final Urine,Voided Thrombosis Risk Factor Assmnt - Choose All That Apply Each Factor Represents 1 point: Obesity (BMI >25), Varicose veins Each Risk Factor Represents 2 Points: Age 61-74 years Thrombosis Risk Factor Assessment Total Risk Factor Score: 4 Thrombosis Risk Factor Assessment Level: Moderate Risk Assessment and Plan Plan: Gallstone pancreatitis CAD PAD HTN Dyslipidemia Plan GI consult NPO IVF MOniter labs Surgery consult as pt would need cholecystectomy prior to discharge HOld plavix. DVT prophylaxis.
[2016-12-12 07:34] LABS: Basophils % (A) 0 %; CH 31.4; CHCM 31.9; Eosinophils # (A) 0.1 k/uL (0-0.7); Eosinophils % (A) 1 %; HCT 34.8 % (34.0-46.0); HDW 2.58; Luc # (Auto) 0.09; Luc % (Auto) 1; Lymphocytes % (A) 8 %; MCH 32.1 pg (25.0-35.0); MCHC 32.4 g/dL (31.0-37.0); Mean Platelet Volume 7.4; Monocytes # (A) 0.5 k/uL (0-1.0); Monocytes % (A) 4 %; Neutrophils % (A) 86 %; RBC 3.52 m/uL (3.80-5.40); RDW 13.3 % (11.5-15.5); WBC 11.7 k/uL (3.8-10.6); WBC (Perox) 11.97
[2016-12-12 07:44] LABS: HGB 11.3 gm/dL (11.4-16.0)
[2016-12-12 07:57] LABS: ALT 43 U/L (9-52); AST 31 U/L (14-36); Alkaline Phosphatase 66 U/L (38-126); Amylase 120 U/L (30-110); Anion Gap 11 mmol/L; Bilirubin, Delta 0.3 mg/dL (0.0-0.2); Blood Urea Nitrogen 21 mg/dL (7-17); Calcium 8.5 mg/dL (8.4-10.2); Carbon Dioxide 18 mmol/L (22-30); Chloride 112 mmol/L (98-107); Glucose 55 mg/dL (74-99); Non-African American GFR(MDRD) >60 (>60 ml/min/1.73 sqM); Potassium 3.9 mmol/L (3.5-5.1); Sodium 141 mmol/L (137-145); Total Bilirubin 1.7 mg/dL (0.2-1.3); Total Protein 5.6 g/dL (6.3-8.2)
[2016-12-12] MEDS: FAMOTIDINE 20 MG/2 ML VIAL IV SCH (08:09)
[2016-12-12] MEDS: ATENOLOL 50 MG TAB PO SCH ×2 (08:09→20:25)
[2016-12-12] MEDS: MORPHINE SULFATE 4 MG/ML SYRINGE IVP PRN (08:10)
[2016-12-12] MEDS ORDERED: CLOPIDOGREL 75 MG TAB PO SCH (09:00)
[2016-12-12] MEDS: AMPICILLIN-SULBACTAM 3 GM in SODIUM CHLORIDE 0.9% 100 ML IVPB SCH ×4 (10:30→17:33)
--- NOTE | 2016-12-12 11:07 | CONS ---
REASON FOR CONSULTATION: Acute gallstone pancreatitis. HISTORY OF PRESENT ILLNESS: The patient is a 77 -year-old pleasant white female admitted to the hospital with severe abdominal pain that started on night at 9:00 p.m. The pain continued to progressively get worse and experienced the pain all thru Tuesday and hence came into the emergency room and subsequently was noted to have elevation of amylase and lipase associated with acute pancreatitis. The patient was diagnosed with gallstones about two years ago and has seen Dr. Beatty. Because she was asymptomatic, she did not undergo any gallbladder surgery. She never had problems with gallstones in the past, however, about two months ago, she had an episode of severe epigastric pain that lasted for four or five hours and then gradually subsided and did not seek any medical attention. Today, she is feeling a little bit better. She still has diffuse abdominal pain, mostly in the epigastric area. She reports some nausea but no emesis. She had diarrhea yesterday. No blood or mucous in the stool. Her past medical history is significant for hypertension, atrial fibrillation, hypercholesterolemia, degenerative joint disease, coronary artery disease. Past surgical history: Breast surgery, cardiac catheterization with stent placement, tubal ligation. Medications at home include: 1. Aspirin. 2. Tenormin. 3. Lipitor. 4. Lasix. 5. Zestril. 6. Nitrostat. 7. Plavix. 8. Multivitamins. ALLERGIES: MINOCYCLINE. BACTRIM. SOCIAL HISTORY: No smoking or alcohol use. Quit smoking in 2003. FAMILY HISTORY: Mother unremarkable. Brother had some cancer. REVIEW OF SYSTEMS: Cardiopulmonary: She denies any chest pain or shortness of breath. Genitourinary: No hematuria or dysuria. Musculoskeletal: Some chronic back pain. Neurology: unremarkable. Psychiatric: unremarkable. HEENT/vision: Unremarkable. Constitutional: No recent weight loss. She had low grade fever but no chills or night sweats. Hematology: Unremarkable. Endocrine: unremarkable. GI: As mentioned earlier. On physical examination, she appears comfortable in no apparent distress. Vital signs stable. Blood pressure 125/56. Pulse rate 82 per minute. T-max was 100. Today it is 97.2. Pulse 79. HEENT: unremarkable. Conjunctivae pink. Sclerae anicteric. Oral cavity no lesions. Neck no JVD or lymph node enlargement. Chest clear to auscultation. Heart regular rate and rhythm. Abdomen is soft. There was diffuse tenderness mostly in the epigastric and the periumbilical area. No rebound or rigidity. Extremities no pedal edema. Skin no rashes. Neurological: Alert and oriented times three. No focal deficits. Labs from yesterday: WBC 10.2, hemoglobin 14.5. Platelets are normal. Today WBC is 11.7. Hemoglobin 11.3. Platelets 176. Yesterday, AST 66, ALT 78. T. bili and alk phos are within normal limits. Lipase was 13,402 and lipase was not done. CT of the abdomen done yesterday showed moderate to severe inflammation, inflammatory edema with moderate retroperitoneal fluid tracking inferiorly measuring about 4 x 2 cm below the pancreatic tail of the body all consistent with acute severe pancreatitis. Gallstones noted. Ultrasound of the gallbladder showed possible gallstones and mild dilation of CBD. IMPRESSION: Acute gallstone pancreatitis. CT of the abdomen did show evidence of gallstones. Slightly dilated CBD but serum transaminases actually were minimally elevated. Labs done this morning are still pending at the time of this dictation. She is noted to have elevated lipase and repeat labs again from this morning are still pending at the time of this dictation. The CT abdomen findings were reviewed with the patient and it appears that she has moderate to severe episode of acute pancreatitis. She had low grade fever and leukocytosis yesterday. Hence was started on broad spectrum IV antibiotics. This morning white count has slightly improved and she has been afebrile for the last 24 hour period. RECOMMENDATIONS: 1. Await LFTs from this morning. 2. Continue with broad spectrum antibiotics. 3. Maintain NPO status. 4. Symptomatic and supportive care. 5. We will follow the patient closely during this hospital stay. Thank you for this consultation. DESHAWN
--- NOTE | 2016-12-12 12:01 | P.GSCN ---
History of Present Illness Consult date: 12/12/16 Reason for Consult: Abdominal pain and pancreatitis History of present illness: The patient's a pleasant 76-year-old female who began feeling poorly on . She developed progressive pain and eventually came into the emergency department. She was found to have pancreatitis and admitted. She does have known cholelithiasis which has been treated expectantly. She did have a similar episode of pain in the past which resolved fairly quickly. No jaundice. Some nausea but no vomiting. She had diarrhea yesterday. No blood in the stools or dark tarry stools. No weight loss. No previous pancreatitis. Review of Systems All systems: negative Past Medical History Past Medical History: Atrial Fibrillation, Coronary Artery Disease (CAD), Chest Pain / Angina, Hypertension, Osteoarthritis (OA) Additional Past Medical History / Comment(s): varicose veins, lower lobe of lung "collapsed", gallstones, History of Any Multi-Drug Resistant Organisms: MRSA Year Discovered:: 11/18/16 MDRO Source:: Head Past Surgical History: Breast Surgery, Heart Catheterization With Stent, Tubal Ligation Additional Past Surgical History / Comment(s): two cardiac stents, rt breast lumpectomy Past Anesthesia/Blood Transfusion Reactions: Motion Sickness, Postoperative Nausea & Vomiting (PONV) Date of Last Stent Placement:: 10/2007 Past Psychological History: No Psychological Hx Reported Smoking Status: Former smoker Past Alcohol Use History: None Reported Additional Past Alcohol Use History / Comment(s): quit smoking 2003, smoked for 40 yrs, 1 PPD Past Drug Use History: None Reported - Past Family History Mother Family Medical History: No Reported History Brother(s) Family Medical History: Cancer Medications and Allergies Home Medications Medication Instructions Recorded Confirmed Type Aspirin [Adult Low Dose Aspirin EC] 81 mg PO HS 06/17/16 12/10/16 History Atenolol [Tenormin] 50 mg PO BID 06/17/16 12/10/16 History Atorvastatin [Lipitor] 80 mg PO HS 06/17/16 12/10/16 History Cholecalciferol [Vitamin D3] 2,000 units PO DAILY 06/17/16 12/10/16 History Furosemide [Lasix] 20 mg PO MOWEFR 06/17/16 12/10/16 History Lisinopril [Zestril] 20 mg PO BID 06/17/16 12/10/16 History Nitroglycerin Sl Tabs [Nitrostat] 0.4 mg SUBLINGUAL DIRECTED PRN 06/17/16 History Clopidogrel Bisulfate [Plavix] 75 mg PO DAILY 10/02/16 12/10/16 History Multivitamin [Multivitamins Adult 2 tab PO DAILY 10/02/16 12/10/16 History Gummies] Allergies Allergy/AdvReac Type Severity Reaction Status Date / Time latex Allergy Rash/Hives Verified 12/10/16 08:23 minocycline AdvReac Nausea & Verified 12/10/16 08:23 Vomiting & Diarrhea sulfamethoxazole AdvReac Nausea & Verified 12/10/16 08:23 [From Bactrim] Vomiting & Diarrhea trimethoprim [From Bactrim] AdvReac Nausea & Verified 12/10/16 08:23 Vomiting & Diarrhea Surgical - Exam Osteopathic Statement: *. No significant issues noted on an osteopathic structural exam other than those noted in the History and Physical/Consult. Vital Signs Temp Pulse Resp BP Pulse Ox 98.5 F 86 18 182/84 98 12/10/16 07:18 12/10/16 07:18 12/10/16 07:18 12/10/16 07:18 12/10/16 07:18 - General well developed, well nourished - Eyes normal ocular movement - ENT normal mucosa - Neck trachea midline - Respiratory normal respiratory effort, clear to auscultation - Cardiovascular Rhythm: regular - Abdomen Abdomen: soft, tender (Diffusely in the mid abdomen), guarding (Mild voluntary) , no rebound, distended (Feels somewhat firm) - Psychiatric oriented to time, oriented to person, oriented to place, speech is normal, memory intact Results - Labs 12/12/16 06:53 12/12/16 06:57 Abnormal Lab Results - Last 24 Hours (Table) 12/12/16 12/12/16 Range/Units 06:53 06:57 WBC 11.7 H (3.8-10.6) k/uL RBC 3.52 L (3.80-5.40) m/uL Hgb 11.3 L D (11.4-16.0) gm/dL Neutrophils # 10.0 H (1.3-7.7) k/uL Chloride 112 H (98-107) mmol/L Carbon Dioxide 18 L (22-30) mmol/L BUN 21 H (7-17) mg/dL Glucose 55 L (74-99) mg/dL Total Bilirubin 1.7 H (0.2-1.3) mg/dL Unconjugated Bilirubin 1.4 H (0.0-1.1) mg/dL Delta Bilirubin 0.3 H (0.0-0.2) mg/dL Total Protein 5.6 L (6.3-8.2) g/dL Albumin 3.0 L (3.5-5.0) g/dL Amylase 120 H (30-110) U/L Lipase 356 H (23-300) U/L Microbiology - Last 24 Hours (Table) 12/10/16 16:27 Blood Culture - Preliminary Blood No Growth after 24 hours 12/10/16 16:44 Blood Culture - Preliminary Blood No Growth after 24 hours 12/10/16 08:55 Urine Culture - Final Urine,Voided Diabetes panel 12/12/16 Range/Units 06:57 Sodium 141 (137-145) mmol/L Potassium 3.9 (3.5-5.1) mmol/L Chloride 112 H (98-107) mmol/L Carbon Dioxide 18 L (22-30) mmol/L BUN 21 H (7-17) mg/dL Creatinine 0.54 (0.52-1.04) mg/dL Glucose 55 L (74-99) mg/dL Calcium 8.5 (8.4-10.2) mg/dL AST 31 (14-36) U/L ALT 43 (9-52) U/L Alkaline Phosphatase 66 (38-126) U/L Total Protein 5.6 L (6.3-8.2) g/dL Albumin 3.0 L (3.5-5.0) g/dL Calcium panel 12/12/16 Range/Units 06:57 Calcium 8.5 (8.4-10.2) mg/dL Albumin 3.0 L (3.5-5.0) g/dL Pituitary panel 12/12/16 Range/Units 06:57 Sodium 141 (137-145) mmol/L Potassium 3.9 (3.5-5.1) mmol/L Chloride 112 H (98-107) mmol/L Carbon Dioxide 18 L (22-30) mmol/L BUN 21 H (7-17) mg/dL Creatinine 0.54 (0.52-1.04) mg/dL Glucose 55 L (74-99) mg/dL Calcium 8.5 (8.4-10.2) mg/dL Adrenal panel 12/12/16 Range/Units 06:57 Sodium 141 (137-145) mmol/L Potassium 3.9 (3.5-5.1) mmol/L Chloride 112 H (98-107) mmol/L Carbon Dioxide 18 L (22-30) mmol/L BUN 21 H (7-17) mg/dL Creatinine 0.54 (0.52-1.04) mg/dL Glucose 55 L (74-99) mg/dL Calcium 8.5 (8.4-10.2) mg/dL Total Bilirubin 1.7 H (0.2-1.3) mg/dL AST 31 (14-36) U/L ALT 43 (9-52) U/L Alkaline Phosphatase 66 (38-126) U/L Total Protein 5.6 L (6.3-8.2) g/dL Albumin 3.0 L (3.5-5.0) g/dL - Imaging CT scan - abdomen: report reviewed Assessment and Plan (1) Gall stone pancreatitis Status: Acute Plan: At present I'd recommend continue bowel rest, IV hydration, IV antibiotics, pain control. The patient has been evaluated by Dr. Crabtree. If she shows signs of choledocholithiasis she may need a ERCP. We will follow with you.
[2016-12-12] MEDS: CHOLECALCIFEROL 1,000 UNIT TAB PO SCH ×2 (12:05→12:07)
[2016-12-12] MEDS: SODIUM CHLORIDE 0.9% 1,000 ML IV SCH (14:20)
[2016-12-12] MEDS: ONDANSETRON 4 MG/2 ML VIAL IVP PRN (15:04)
--- NOTE | 2016-12-12 16:50 | P.PN ---
Subjective 76 yr old with history of CAD, PAD comes into the hospital with complaints of abdominal pain times 3 days. pt states that the pain is around her umbilicus, worse with any movement, no alleviating factors, associated with nausea, vomiting and loose stools Pt denies having any fevers, chills, chest pain, headaches, blurry vision, urinary frequency or urgency Pt denies any alcohol use, or history of hepatitis. pt states that she had a similar episode a few weeks ago, however resolved without any intervention 12/12/16 continues to have abdominal pain diffuse No more bowel movements, more tender on the left hemiabdomen no fevers, chills reported - Constitutional General appearance: no acute distress - EENT Eyes: PERRLA - Neck Neck: normal ROM - Respiratory Respiratory: bilateral: CTA, negative: dullness, rales, rhonchi - Cardiovascular Rhythm: regular Heart sounds: normal: S1, S2 Abnormal Heart Sounds: no systolic murmur - Gastrointestinal General gastrointestinal: distended, tenderness (diffuse) - Integumentary Integumentary: normal - Neurologic Neurologic: CNII-XII intact - Psychiatric Psychiatric: A&O x's 3 Objective - Vital Signs Vital signs: Vital Signs Temp 98.8 F 12/12/16 15:00 Pulse 77 12/12/16 15:00 Resp 18 12/12/16 15:00 BP 157/68 12/12/16 15:00 Pulse Ox 95 12/12/16 15:00 Intake & Output 12/11/16 12/12/16 12/12/16 18:59 06:59 18:59 Intake Total 800 150 900 Balance 800 150 900 Intake: Intake, IV Titration 800 100 900 Amount Ampicillin-Sulbactam 3 gm 100 100 In Sodium Chloride 0.9% 100 ml @ 100 mls/hr IVPB Q8HR [facility] Rx#:[id number] Sodium Chloride 0.9% 1, 800 000 ml @ 100 mls/hr IV . Q10H [facility] Rx#:[id number] Sodium Chloride 0.9% 1, 800 000 ml @ 100 mls/hr IV . Q10H [facility] Rx#:[id number] Oral 50 Other: Voiding Method Toilet # Voids 3 - Labs CBC & Chem 7: 12/12/16 06:53 12/12/16 06:57 Labs: Abnormal Lab Results - Last 24 Hours (Table) 12/12/16 12/12/16 Range/Units 06:53 06:57 WBC 11.7 H (3.8-10.6) k/uL RBC 3.52 L (3.80-5.40) m/uL Hgb 11.3 L D (11.4-16.0) gm/dL Neutrophils # 10.0 H (1.3-7.7) k/uL Chloride 112 H (98-107) mmol/L Carbon Dioxide 18 L (22-30) mmol/L BUN 21 H (7-17) mg/dL Glucose 55 L (74-99) mg/dL Total Bilirubin 1.7 H (0.2-1.3) mg/dL Unconjugated Bilirubin 1.4 H (0.0-1.1) mg/dL Delta Bilirubin 0.3 H (0.0-0.2) mg/dL Total Protein 5.6 L (6.3-8.2) g/dL Albumin 3.0 L (3.5-5.0) g/dL Amylase 120 H (30-110) U/L Lipase 356 H (23-300) U/L Microbiology - Last 24 Hours (Table) 12/10/16 16:27 Blood Culture - Preliminary Blood No Growth after 24 hours 12/10/16 16:44 Blood Culture - Preliminary Blood No Growth after 24 hours Assessment and Plan Plan: Gallstone pancreatitis CAD PAD HTN Dyslipidemia Plan labs improved clinically still appear to have pancreatitis bowel care NPO would need removal of gallbladder to prevent a future episode Continue holding plavix
[2016-12-12] MEDS: ASPIRIN 81 MG PO SCH (20:25)
[2016-12-13] MEDS: AMPICILLIN-SULBACTAM 3 GM in SODIUM CHLORIDE 0.9% 100 ML IVPB SCH ×3 (00:07→15:04)
[2016-12-13] MEDS: ACETAMINOPHEN TAB 325 MG TAB PO PRN ×2 (02:59→19:53)
[2016-12-13 07:44] LABS: ALT 32 U/L (9-52); AST 20 U/L (14-36); Alkaline Phosphatase 51 U/L (38-126); Anion Gap 6 mmol/L; Blood Urea Nitrogen 15 mg/dL (7-17); Calcium 7.7 mg/dL (8.4-10.2); Carbon Dioxide 22 mmol/L (22-30); Chloride 109 mmol/L (98-107); Glucose 130 mg/dL (74-99); Non-African American GFR(MDRD) >60 (>60 ml/min/1.73 sqM); Potassium 3.5 mmol/L (3.5-5.1); Sodium 137 mmol/L (137-145); Total Bilirubin 1.3 mg/dL (0.2-1.3); Total Protein 4.7 g/dL (6.3-8.2)
[2016-12-13 08:12] LABS: Basophils % (A) 0 %; CH 31.3; CHCM 32.5; Eosinophils # (A) 0.1 k/uL (0-0.7); Eosinophils % (A) 1 %; HCT 30.8 % (34.0-46.0); HDW 2.64; HGB 10.2 gm/dL (11.4-16.0); Luc # (Auto) 0.11; Luc % (Auto) 1; Lymphocytes # (A) 0.6 k/uL (1.0-4.8); Lymphocytes % (A) 5 %; MCH 32.2 pg (25.0-35.0); MCHC 33.3 g/dL (31.0-37.0); MCV 96.9 fL (80.0-100.0); Mean Platelet Volume 7.4; Monocytes # (A) 0.4 k/uL (0-1.0); Monocytes % (A) 3 %; Neutrophils # (A) 9.8 k/uL (1.3-7.7); Neutrophils % (A) 89 %; RBC 3.18 m/uL (3.80-5.40); RDW 13.3 % (11.5-15.5); WBC 10.9 k/uL (3.8-10.6); WBC (Perox) 11.64
[2016-12-13] MEDS: ATENOLOL 50 MG TAB PO SCH ×2 (08:18→19:53)
[2016-12-13] MEDS: FAMOTIDINE 20 MG/2 ML VIAL IV SCH (08:18)
[2016-12-13] MEDS: SODIUM CHLORIDE 0.9% 1,000 ML IV SCH ×3 (09:33→15:04)
[2016-12-13] MEDS: CHOLECALCIFEROL 1,000 UNIT TAB PO SCH (12:02)
--- NOTE | 2016-12-13 13:17 | P.PN ---
Subjective Principal diagnosis: Continuing care/pancreatitis. This is a continue progress on a 76-year-old white female essentially admitted for pancreatitis. She denies any significant ethanol use. She would like stool softener or possible laxative today. Otherwise consultants patient is otherwise noted. Objective - Vital Signs Vital signs: Vital Signs Temp 99.0 F 12/13/16 07:00 Pulse 68 12/13/16 07:00 Resp 18 12/13/16 07:00 BP 111/53 12/13/16 07:00 Pulse Ox 99 12/13/16 07:00 Intake & Output 12/12/16 12/13/16 12/13/16 18:59 06:59 18:59 Intake Total 900 1200 Balance 900 1200 Intake: Intake, IV Titration 900 1200 Amount Ampicillin-Sulbactam 3 gm 100 100 In Sodium Chloride 0.9% 100 ml @ 100 mls/hr IVPB Q8HR [facility] Rx#:[id number] Sodium Chloride 0.9% 1, 800 1100 000 ml @ 100 mls/hr IV . Q10H [facility] Rx#:[id number] Other: Voiding Method Toilet Toilet # Voids 3 - Constitutional General appearance: Present: average body habitus - EENT Eyes: Absent: abnormal pupil - Respiratory Respiratory: bilateral: CTA - Cardiovascular Rhythm: regular Heart sounds: normal: S1, S2 - Gastrointestinal General gastrointestinal: Present: soft. Absent: tenderness - Integumentary Integumentary: Absent: cellulitis - Neurologic Neurologic: Present: CNII-XII intact - Labs CBC & Chem 7: 12/13/16 07:02 12/13/16 07:02 Labs: Abnormal Lab Results - Last 24 Hours (Table) 12/13/16 12/13/16 Range/Units 07:02 07:02 WBC 10.9 H (3.8-10.6) k/uL RBC 3.18 L (3.80-5.40) m/uL Hgb 10.2 L (11.4-16.0) gm/dL Hct 30.8 L (34.0-46.0) % Neutrophils # 9.8 H (1.3-7.7) k/uL Lymphocytes # 0.6 L (1.0-4.8) k/uL Chloride 109 H (98-107) mmol/L Creatinine 0.48 L (0.52-1.04) mg/dL Glucose 130 H (74-99) mg/dL Calcium 7.7 L (8.4-10.2) mg/dL Total Protein 4.7 L (6.3-8.2) g/dL Albumin 2.3 L (3.5-5.0) g/dL Microbiology - Last 24 Hours (Table) 12/10/16 16:27 Blood Culture - Preliminary Blood No Growth after 48 hours 12/10/16 16:44 Blood Culture - Preliminary Blood No Growth after 48 hours Assessment and Plan (1) Acute pancreatitis Status: Acute (2) Dehydration Status: Acute (3) Gall stone pancreatitis Status: Acute Plan: Advance diet as tolerated. Colace will be given for stool softening. Check CBC, CMP with amylase lipase in a.m. The patient is clinically improving. Time with Patient: Less than 30
[2016-12-13 14:33] LABS: Amylase 60 U/L (30-110)
[2016-12-13] MEDS: DOCUSATE 100 MG CAP PO PRN (15:04)
--- NOTE | 2016-12-13 15:50 | P.PN ---
Subjective Principal diagnosis: Gallstone pancreatitis Patient says she feels better today. Still with some abdominal achiness. Mild nausea. Hasn't really tried any of the clear liquids that were ordered for today. She did have a fever last night of 100.8. White blood cell count 10.9. Bilirubin down to 1.3. Amylase is normal lipase decreased. Objective - Vital Signs Vital signs: Vital Signs Temp 99.0 F 12/13/16 07:00 Pulse 68 12/13/16 07:00 Resp 18 12/13/16 07:00 BP 111/53 12/13/16 07:00 Pulse Ox 99 12/13/16 07:00 Intake & Output 12/12/16 12/13/16 12/13/16 18:59 06:59 18:59 Intake Total 900 1200 Balance 900 1200 Intake: Intake, IV Titration 900 1200 Amount Ampicillin-Sulbactam 3 gm 100 100 In Sodium Chloride 0.9% 100 ml @ 100 mls/hr IVPB Q8HR [facility] Rx#:[id number] Sodium Chloride 0.9% 1, 800 1100 000 ml @ 100 mls/hr IV . Q10H [facility] Rx#:[id number] Other: Voiding Method Toilet Toilet Toilet # Voids 3 - Exam Abdomen: Soft, nondistended, mild epigastric tenderness - Labs CBC & Chem 7: 12/13/16 07:02 12/13/16 07:02 Labs: Abnormal Lab Results - Last 24 Hours (Table) 12/13/16 12/13/16 12/13/16 Range/Units 07:02 07:02 13:49 WBC 10.9 H (3.8-10.6) k/uL RBC 3.18 L (3.80-5.40) m/uL Hgb 10.2 L (11.4-16.0) gm/dL Hct 30.8 L (34.0-46.0) % Neutrophils # 9.8 H (1.3-7.7) k/uL Lymphocytes # 0.6 L (1.0-4.8) k/uL Chloride 109 H (98-107) mmol/L Creatinine 0.48 L (0.52-1.04) mg/dL Glucose 130 H (74-99) mg/dL Calcium 7.7 L (8.4-10.2) mg/dL Total Protein 4.7 L (6.3-8.2) g/dL Albumin 2.3 L (3.5-5.0) g/dL Lipase 345 H (23-300) U/L Microbiology - Last 24 Hours (Table) 12/10/16 16:27 Blood Culture - Preliminary Blood No Growth after 48 hours 12/10/16 16:44 Blood Culture - Preliminary Blood No Growth after 48 hours Assessment and Plan (1) Gall stone pancreatitis Narrative/Plan: Continue clear liquids. Repeat labs tomorrow. Monitor fevers closely. Patient and I discussed the need for cholecystectomy. Would like the patient to feel stronger and allow a bit more time for the acute epigastric inflammatory changes to diminished. Anticipate cholecystectomy later during this hospitalization or soon after discharge electively. Status: Acute
[2016-12-13] MEDS: ASPIRIN 81 MG PO SCH (19:53)
--- NOTE | 2016-12-13 22:18 | PN ---
DATE OF SERVICE: 12/13/2016 This patient is a 76-year-old pleasant white female admitted to the hospital with acute gallstone pancreatitis. This morning she is feeling much better. She ( ) gastric discomfort. No nausea. No vomiting. On physical examination, she appears comfortable, in no apparent distress. Vital signs are stable. Blood pressure is 111/53, pulse rate 68, temperature 99. T-max was 100.8. HEENT EXAMINATION: Unremarkable. Conjunctivae are pink, sclerae anicteric. Oral cavity with no lesions. NECK: No JVD or lymph node enlargement. CHEST: Clear to auscultation. HEART: Regular rate and rhythm. ABDOMEN: Soft. It was diffusely tender, mostly in the epigastric area, but no rebound or rigidity. Bowel sounds are positive. No organomegaly. EXTREMITIES: No pedal edema. SKIN: No rashes. NEURO: Alert and oriented x3. No focal deficits. LABS: WBC 10.9, hemoglobin 10.2. Platelets are normal. Amylase yesterday was 120. Lipase is 356. ALT, AST, total bilirubin and alkaline phosphatase are within normal limits. IMPRESSION: Acute gallstone pancreatitis, gradually improving. Patient had a low -grade fever last night, probably related to acute severe pancreatitis. Her serum transaminases have completely normalized. RECOMMENDATIONS: 1. Will start her on a clear liquid diet. 2. Await recommendations from Dr. Beatty about gallbladder surgery. She is already on broad-spectrum antibiotics, and we will continue them for now. Will follow her closely during her hospital stay ( ). DESHAWN
[2016-12-14] MEDS: SODIUM CHLORIDE 0.9% 1,000 ML IV SCH ×3 (00:04→23:21)
[2016-12-14] MEDS: AMPICILLIN-SULBACTAM 3 GM in SODIUM CHLORIDE 0.9% 100 ML IVPB SCH ×5 (07:44→23:20)
[2016-12-14] MEDS: ATENOLOL 50 MG TAB PO SCH ×2 (07:45→21:19)
[2016-12-14] MEDS: FAMOTIDINE 20 MG/2 ML VIAL IV SCH ×3 (07:45→21:19)
[2016-12-14 08:12] LABS: ALT 27 U/L (9-52); AST 17 U/L (14-36); Alkaline Phosphatase 59 U/L (38-126); Amylase 65 U/L (30-110); Anion Gap 8 mmol/L; Blood Urea Nitrogen 8 mg/dL (7-17); Carbon Dioxide 24 mmol/L (22-30); Chloride 108 mmol/L (98-107); Glucose 70 mg/dL (74-99); Non-African American GFR(MDRD) >60 (>60 ml/min/1.73 sqM); Potassium 3.5 mmol/L (3.5-5.1); Sodium 140 mmol/L (137-145); Total Bilirubin 1.2 mg/dL (0.2-1.3)
[2016-12-14 08:19] LABS: CH 31.9; CHCM 32.7; HCT 32.9 % (34.0-46.0); HDW 2.72; HGB 10.8 gm/dL (11.4-16.0); MCH 32.1 pg (25.0-35.0); MCHC 32.8 g/dL (31.0-37.0); Mean Platelet Volume 7.7; RBC 3.35 m/uL (3.80-5.40); RDW 13.9 % (11.5-15.5); WBC 11.1 k/uL (3.8-10.6)
--- NOTE | 2016-12-14 08:23 | P.PN ---
Subjective Principal diagnosis: Continuing care/pancreatitis. This is a continue progress on a 76-year-old white female essentially admitted for pancreatitis. She denies any significant ethanol use. She would like stool softener or possible laxative today. Otherwise consultants patient is otherwise noted. Objective - Vital Signs Vital signs: Vital Signs Temp 98.7 F 12/13/16 22:45 Pulse 76 12/13/16 22:45 Resp 16 12/13/16 22:45 BP 129/56 12/13/16 22:45 Pulse Ox 98 12/13/16 22:45 Intake & Output 12/13/16 12/14/16 12/14/16 18:59 06:59 18:59 Intake Total 1680 Balance 1680 Intake: Intake, IV Titration 1200 Amount Sodium Chloride 0.9% 1, 1200 000 ml @ 100 mls/hr IV . Q10H [facility] Rx#:[id number] Oral 480 Other: Voiding Method Toilet Toilet # Voids 1 2 # Bowel Movements 0 - Constitutional General appearance: Present: average body habitus - EENT Eyes: Absent: abnormal pupil - Respiratory Respiratory: bilateral: CTA - Cardiovascular Rhythm: regular Heart sounds: normal: S1, S2 - Gastrointestinal General gastrointestinal: Present: soft. Absent: tenderness - Integumentary Integumentary: Absent: cellulitis - Labs CBC & Chem 7: 12/13/16 07:02 12/14/16 07:22 Labs: Abnormal Lab Results - Last 24 Hours (Table) 12/13/16 12/14/16 Range/Units 13:49 07:22 Chloride 108 H (98-107) mmol/L Creatinine 0.51 L (0.52-1.04) mg/dL Glucose 70 L (74-99) mg/dL Calcium 8.0 L (8.4-10.2) mg/dL Total Protein 5.0 L (6.3-8.2) g/dL Albumin 2.5 L (3.5-5.0) g/dL Lipase 345 H 367 H (23-300) U/L Microbiology - Last 24 Hours (Table) 12/10/16 16:27 Blood Culture - Preliminary Blood No Growth after 72 hours 12/10/16 16:44 Blood Culture - Preliminary Blood No Growth after 72 hours Assessment and Plan (1) Acute pancreatitis Status: Acute (2) Dehydration Status: Acute (3) Gall stone pancreatitis Status: Acute Plan: Pancreatitis slowly resolving. Continue clear liquids at this time. I have discussed with the patient that she should try to increase her caloric intake even notice clear liquids. Still somewhat shy about eating because of the anticipatory pain. I told the patient to given her enzymatic decrease, she should be clear Anticipate cholecystectomy when cleared by Dr. Beatty. (Either at this hospitalization or shortly after discharge. The patient does prefer during this hospitalization). Time with Patient: Less than 30
[2016-12-14] MEDS ORDERED: NITROGLYCERIN SL TABS 0.4 MG TAB SUBLINGUAL PRN (08:26)
[2016-12-14] MEDS ORDERED: FUROSEMIDE 20 MG TAB PO STA (08:35)
[2016-12-14] MEDS: ACETAMINOPHEN TAB 325 MG TAB PO PRN ×2 (09:09→21:21)
--- NOTE | 2016-12-14 12:43 | P.PN ---
Subjective Principal diagnosis: Gallstone pancreatitis Patient says her pain is improved. Tolerating clear liquids at this point. Lipase is slightly elevated today. Objective - Vital Signs Vital signs: Vital Signs Temp 98.0 F 12/14/16 07:00 Pulse 87 12/14/16 07:00 Resp 16 12/14/16 08:00 BP 150/64 12/14/16 07:00 Pulse Ox 99 12/14/16 07:00 Intake & Output 12/13/16 12/14/16 12/14/16 18:59 06:59 18:59 Intake Total 1680 Balance 1680 Weight 74.843 kg Intake: Intake, IV Titration 1200 Amount Sodium Chloride 0.9% 1, 1200 000 ml @ 100 mls/hr IV . Q10H [facility] Rx#:[id number] Oral 480 Other: Voiding Method Toilet Toilet Toilet # Voids 1 2 # Bowel Movements 0 - Exam Abdomen: Soft, mild epigastric tenderness, no rebound or guarding - Labs CBC & Chem 7: 12/14/16 07:22 12/14/16 07:22 Labs: Abnormal Lab Results - Last 24 Hours (Table) 12/13/16 12/14/16 12/14/16 Range/Units 13:49 07:22 07:22 WBC 11.1 H (3.8-10.6) k/uL RBC 3.35 L (3.80-5.40) m/uL Hgb 10.8 L (11.4-16.0) gm/dL Hct 32.9 L (34.0-46.0) % Chloride 108 H (98-107) mmol/L Creatinine 0.51 L (0.52-1.04) mg/dL Glucose 70 L (74-99) mg/dL Calcium 8.0 L (8.4-10.2) mg/dL Total Protein 5.0 L (6.3-8.2) g/dL Albumin 2.5 L (3.5-5.0) g/dL Lipase 345 H 367 H (23-300) U/L Microbiology - Last 24 Hours (Table) 12/10/16 16:27 Blood Culture - Preliminary Blood No Growth after 72 hours 12/10/16 16:44 Blood Culture - Preliminary Blood No Growth after 72 hours Assessment and Plan (1) Gall stone pancreatitis Narrative/Plan: Will advance diet. Repeat labs tomorrow. Possible cholecystectomy . Status: Acute
[2016-12-14] MEDS: CHOLECALCIFEROL 1,000 UNIT TAB PO SCH (16:28)
[2016-12-14] MEDS: ASPIRIN 81 MG PO SCH (21:19)
[2016-12-15] MEDS: AMPICILLIN-SULBACTAM 3 GM in SODIUM CHLORIDE 0.9% 100 ML IVPB SCH ×3 (07:29→23:37)
[2016-12-15] MEDS: FAMOTIDINE 20 MG/2 ML VIAL IV SCH ×2 (07:33→21:00)
[2016-12-15] MEDS: FUROSEMIDE 20 MG TAB PO SCH (07:33)
[2016-12-15] MEDS: ATENOLOL 50 MG TAB PO SCH ×2 (07:33→21:00)
--- NOTE | 2016-12-15 09:37 | P.PN ---
Subjective Principal diagnosis: Continuing care/pancreatitis. The patient is here essentially for gallstone pancreatitis. The patient is doing quite well and will hopefully have cholecystectomy in the a.m. She can continues to tolerate clear liquids. No voiding difficulties are stated. No fever. We will go ahead and check CMP with amylase and lipase today. Objective - Vital Signs Vital signs: Vital Signs Temp 98 F 12/15/16 07:00 Pulse 71 12/15/16 07:00 Resp 16 12/15/16 08:00 BP 129/61 12/15/16 07:00 Pulse Ox 100 12/15/16 07:00 Intake & Output 12/14/16 12/15/16 12/15/16 18:59 06:59 18:59 Intake Total 1934 Balance 1934 Weight 74.843 kg 74.843 kg Intake: Intake, IV Titration 1355 Amount Ampicillin-Sulbactam 3 gm 100 In Sodium Chloride 0.9% 100 ml @ 100 mls/hr IVPB Q8HR [facility] Rx#:[id number] Sodium Chloride 0.9% 1, 1255 000 ml @ 100 mls/hr IV . Q10H [facility] Rx#:[id number] Oral 580 Other: Voiding Method Toilet Toilet Toilet # Voids 2 2 # Bowel Movements 0 0 - Constitutional General appearance: Present: average body habitus - EENT ENT: Absent: thrush - Respiratory Respiratory: bilateral: CTA - Cardiovascular Rhythm: regular Heart sounds: normal: S1, S2 - Gastrointestinal General gastrointestinal: Present: soft. Absent: tenderness - Psychiatric Psychiatric: Present: A&O x's 3, appropriate affect - Labs CBC & Chem 7: 12/14/16 07:22 12/14/16 07:22 Labs: Microbiology - Last 24 Hours (Table) 12/10/16 16:27 Blood Culture - Preliminary Blood No Growth after 96 hours 12/10/16 16:44 Blood Culture - Preliminary Blood No Growth after 96 hours Assessment and Plan (1) Acute pancreatitis Status: Acute (2) Dehydration Status: Acute (3) Gall stone pancreatitis Status: Acute Plan: Check for enzymatic resolution. Otherwise anticipate cholecystectomy in the a.m. We'll continue follow with surgery. Appreciate GI input otherwise.
[2016-12-15] MEDS: SODIUM CHLORIDE 0.9% 1,000 ML IV SCH (10:55)
[2016-12-15 11:30] LABS: AST 24 U/L (14-36); Alkaline Phosphatase 60 U/L (38-126); Amylase 53 U/L (30-110); Blood Urea Nitrogen 6 mg/dL (7-17); Chloride 107 mmol/L (98-107); Glucose 93 mg/dL (74-99); Non-African American GFR(MDRD) >60 (>60 ml/min/1.73 sqM); Sodium 138 mmol/L (137-145); Total Bilirubin 1.1 mg/dL (0.2-1.3); Total Protein 5.4 g/dL (6.3-8.2)
[2016-12-15 11:35] LABS: Anion Gap 9 mmol/L; Carbon Dioxide 22 mmol/L (22-30)
[2016-12-15 11:37] LABS: ALT 28 U/L (9-52)
[2016-12-15 11:38] LABS: Potassium 3.3 mmol/L (3.5-5.1)
[2016-12-15] MEDS: CHOLECALCIFEROL 1,000 UNIT TAB PO SCH (12:01)
[2016-12-15] MEDS ORDERED: Potassium Replacement Protocol 1 EACH MISC MISCELLANE PRN (14:15)
[2016-12-15] MEDS: POTASSIUM CHLORIDE 10 MEQ, LIDOCAINE 2% INJ 10 MG in SODIUM CHLORIDE 0.9% 100 ML IV SCH ×2 (15:35→17:25)
[2016-12-15] MEDS: ASPIRIN 81 MG PO SCH (21:00)
--- NOTE | 2016-12-15 21:25 | P.PN ---
Subjective Principal diagnosis: Gallstone pancreatitis Patient says her pain is improved. Her lipase to go up slightly today. She is tolerating her diet. No fevers. Objective - Vital Signs Vital signs: Vital Signs Temp 98.4 F 12/15/16 15:00 Pulse 89 12/15/16 21:04 Resp 16 12/15/16 15:37 BP 163/74 12/15/16 21:04 Pulse Ox 98 12/15/16 15:00 Intake & Output 12/15/16 12/15/16 12/16/16 06:59 18:59 06:59 Intake Total 193 Balance 193 Weight 74.843 kg Intake: Intake, IV Titration 1355 Amount Ampicillin-Sulbactam 3 gm 100 In Sodium Chloride 0.9% 100 ml @ 100 mls/hr IVPB Q8HR [facility] Rx#:[id number] Sodium Chloride 0.9% 1, 1255 000 ml @ 100 mls/hr IV . Q10H [facility] Rx#:[id number] Oral 580 Other: Voiding Method Toilet Toilet # Voids 2 2 # Bowel Movements 0 1 - Exam Abdomen: Soft, minimal epigastric tenderness - Labs CBC & Chem 7: 12/14/16 07:22 12/15/16 10:52 Labs: Abnormal Lab Results - Last 24 Hours (Table) 12/15/16 Range/Units 10:52 Potassium 3.3 L (3.5-5.1) mmol/L BUN 6 L (7-17) mg/dL Creatinine 0.45 L (0.52-1.04) mg/dL Calcium 8.0 L (8.4-10.2) mg/dL Total Protein 5.4 L (6.3-8.2) g/dL Albumin 2.6 L (3.5-5.0) g/dL Lipase 446 H (23-300) U/L Microbiology - Last 24 Hours (Table) 12/10/16 16:27 Blood Culture - Preliminary Blood No Growth after 120 hours 12/10/16 16:44 Blood Culture - Preliminary Blood No Growth after 120 hours Assessment and Plan (1) Gall stone pancreatitis Narrative/Plan: Will recheck lab work tomorrow morning. Nothing to eat after midnight in the event that cholecystectomy is planned. Status: Acute
[2016-12-16] MEDS: SODIUM CHLORIDE 0.9% 1,000 ML IV SCH ×3 (07:06→17:03)
[2016-12-16 08:08] LABS: CH 31.5; CHCM 33.3; HCT 32.6 % (34.0-46.0); HDW 2.96; HGB 10.7 gm/dL (11.4-16.0); MCH 31.3 pg (25.0-35.0); MCHC 32.9 g/dL (31.0-37.0); RBC 3.43 m/uL (3.80-5.40); RDW 13.1 % (11.5-15.5); WBC 9.8 k/uL (3.8-10.6)
[2016-12-16] MEDS: ALBUTEROL NEBULIZED 2.5 MG/3 ML INHALATION PRN ×3 (08:13→20:42)
--- NOTE | 2016-12-16 08:26 | P.PN ---
Subjective Principal diagnosis: Continuing care/pancreatitis. This is a 76-year-old white female essentially admitted for pancreatitis. She has significant gallstone issue and is hopefully scheduled for removal today. She does compare to some mild shortness of breath. I'll go ahead and give her albuterol with chest x-ray order. Pulse oximetry is otherwise normal. Objective - Vital Signs Vital signs: Vital Signs Temp 98.5 F 12/16/16 07:00 Pulse 86 12/16/16 08:13 Resp 16 12/16/16 08:13 BP 148/77 12/16/16 07:00 Pulse Ox 99 12/16/16 07:00 Intake & Output 12/15/16 12/16/16 12/16/16 18:59 06:59 18:59 Intake Total 825 Balance 825 Intake: Intake, IV Titration 625 Amount Ampicillin-Sulbactam 3 gm 100 In Sodium Chloride 0.9% 100 ml @ 100 mls/hr IVPB Q8HR [facility] Rx#:[id number] Potassium Chloride 10 meq 525 Lidocaine 2% Inj 10 mg In Sodium Chloride 0.9% 100 ml @ 100 mls/hr IV Q1HR [facility] Rx#:[id number] Oral 200 Other: Voiding Method Toilet Toilet Toilet # Voids 2 2 # Bowel Movements 1 - Constitutional General appearance: Present: average body habitus - EENT Eyes: Absent: abnormal pupil - Neck Neck: Absent: lymphadenopathy - Respiratory Respiratory: bilateral: CTA - Cardiovascular Rhythm: regular Heart sounds: normal: S1, S2 Abnormal Heart Sounds: Absent: S3 Gallop - Gastrointestinal General gastrointestinal: Present: soft. Absent: tenderness - Labs CBC & Chem 7: 12/16/16 07:01 12/15/16 10:52 Labs: Abnormal Lab Results - Last 24 Hours (Table) 12/15/16 12/16/16 Range/Units 10:52 07:01 RBC 3.43 L (3.80-5.40) m/uL Hgb 10.7 L (11.4-16.0) gm/dL Hct 32.6 L (34.0-46.0) % Potassium 3.3 L (3.5-5.1) mmol/L BUN 6 L (7-17) mg/dL Creatinine 0.45 L (0.52-1.04) mg/dL Calcium 8.0 L (8.4-10.2) mg/dL Total Protein 5.4 L (6.3-8.2) g/dL Albumin 2.6 L (3.5-5.0) g/dL Lipase 446 H (23-300) U/L Microbiology - Last 24 Hours (Table) 12/10/16 16:27 Blood Culture - Preliminary Blood No Growth after 120 hours 12/10/16 16:44 Blood Culture - Preliminary Blood No Growth after 120 hours Assessment and Plan (1) Acute pancreatitis Status: Acute (2) Dehydration Status: Acute (3) Gall stone pancreatitis Status: Acute Plan: Await laboratories from this morning. CBC seems to be nominal. CMP with amylase and lipase are pending, supposedly. Check chest x-ray today. Anticipate cholecystectomy once cleared by surgery. Time with Patient: Less than 30
[2016-12-16 08:37] LABS: ALT 27 U/L (9-52); AST 18 U/L (14-36); Alkaline Phosphatase 58 U/L (38-126); Anion Gap 7 mmol/L; Blood Urea Nitrogen 4 mg/dL (7-17); Calcium 8.2 mg/dL (8.4-10.2); Carbon Dioxide 26 mmol/L (22-30); Chloride 107 mmol/L (98-107); Glucose 98 mg/dL (74-99); Non-African American GFR(MDRD) >60 (>60 ml/min/1.73 sqM); Potassium 3.4 mmol/L (3.5-5.1); Sodium 140 mmol/L (137-145); Total Bilirubin 0.8 mg/dL (0.2-1.3); Total Protein 4.9 g/dL (6.3-8.2)
[2016-12-16] MEDS: FAMOTIDINE 20 MG/2 ML VIAL IV SCH ×2 (08:51→19:57)
[2016-12-16] MEDS: AMPICILLIN-SULBACTAM 3 GM in SODIUM CHLORIDE 0.9% 100 ML IVPB SCH ×3 (08:52→23:23)
[2016-12-16] MEDS: ATENOLOL 50 MG TAB PO SCH ×2 (08:53→19:56)
--- NOTE | 2016-12-16 09:00 | XR ---
EXAMINATION TYPE: XR chest 2V DATE OF EXAM: 12/16/2016 COMPARISON: NONE HISTORY: Shortness of breath TECHNIQUE: Frontal and lateral views of the chest are obtained. FINDINGS: The heart is likely enlarged, there is bibasilar increased density with obscured hemidiaph ragms. Interstitium is increased. No evident pneumothorax. Prominent lung volumes may be indicative o f underlying COPD. IMPRESSION: Correlate for congestive heart failure in a patient with pre-existing COPD. Bibasilar ef fusions and associated atelectasis, correlate to exclude pneumonia.
[2016-12-16] MEDS ORDERED: FUROSEMIDE 10 MG/ML 2 ML VIAL IV ONE (10:38)
[2016-12-16] MEDS: CHOLECALCIFEROL 1,000 UNIT TAB PO SCH (12:17)
--- NOTE | 2016-12-16 19:53 | P.PN ---
Subjective Principal diagnosis: Gallstone pancreatitis Patient feels better today. Her lipase level is down to 360. She was scheduled for surgery however the operating room schedule was backed up quite significantly. The options of holding off and doing her surgery tomorrow was reviewed with her and her son. They would like to wait until tomorrow. Objective - Vital Signs Vital signs: Vital Signs Temp 97.9 F 12/16/16 15:00 Pulse 78 12/16/16 16:29 Resp 20 12/16/16 16:00 BP 169/75 12/16/16 15:00 Pulse Ox 96 12/16/16 15:00 Intake & Output 12/16/16 12/16/16 12/17/16 06:59 18:59 06:59 Intake Total 825 0 Balance 825 0 Intake: Intake, IV Titration 625 Amount Ampicillin-Sulbactam 3 gm 100 In Sodium Chloride 0.9% 100 ml @ 100 mls/hr IVPB Q8HR [facility] Rx#:[id number] Potassium Chloride 10 meq 525 Lidocaine 2% Inj 10 mg In Sodium Chloride 0.9% 100 ml @ 100 mls/hr IV Q1HR [facility] Rx#:[id number] Oral 200 0 Other: Voiding Method Toilet Toilet # Voids 2 2 - Exam Abdomen: Soft, nondistended, mild epigastric tenderness - Labs CBC & Chem 7: 12/16/16 07:01 12/16/16 07:01 Labs: Abnormal Lab Results - Last 24 Hours (Table) 12/16/16 12/16/16 12/16/16 Range/Units 07:01 07:01 07:01 RBC 3.43 L (3.80-5.40) m/uL Hgb 10.7 L (11.4-16.0) gm/dL Hct 32.6 L (34.0-46.0) % Potassium 3.4 L (3.5-5.1) mmol/L BUN 4 L (7-17) mg/dL Creatinine 0.44 L (0.52-1.04) mg/dL Calcium 8.2 L (8.4-10.2) mg/dL Total Protein 4.9 L (6.3-8.2) g/dL Albumin 2.5 L (3.5-5.0) g/dL Lipase 360 H (23-300) U/L Microbiology - Last 24 Hours (Table) 12/10/16 16:27 Blood Culture - Final Blood No Growth after 144 hours 12/10/16 16:44 Blood Culture - Final Blood No Growth after 144 hours Assessment and Plan (1) Gall stone pancreatitis Narrative/Plan: Resume a full liquid diet this evening. Reschedule cholecystectomy for tomorrow. Status: Acute
[2016-12-16] MEDS: ASPIRIN 81 MG PO SCH (19:56)
[2016-12-16] MEDS: ACETAMINOPHEN TAB 325 MG TAB PO PRN (22:23)
[2016-12-17] MEDS: SODIUM CHLORIDE 0.9% 1,000 ML IV SCH ×3 (05:29→16:41)
[2016-12-17] MEDS: ALBUTEROL NEBULIZED 2.5 MG/3 ML INHALATION PRN (07:58)
[2016-12-17] MEDS: ATENOLOL 50 MG TAB PO SCH ×2 (08:18→21:18)
[2016-12-17] MEDS: FAMOTIDINE 20 MG/2 ML VIAL IV SCH ×2 (08:18→21:19)
--- NOTE | 2016-12-17 08:44 | P.PN ---
Subjective Principal diagnosis: Continuing care/pancreatitis. This is a 76-year-old white female essentially admitted for pancreatitis. She has significant gallstone issue and is hopefully scheduled for removal today. She does compare to some mild shortness of breath. I'll go ahead and give her albuterol with chest x-ray order. Pulse oximetry is otherwise normal. Objective - Vital Signs Vital signs: Vital Signs Temp 98.2 F 12/17/16 07:00 Pulse 78 12/17/16 08:11 Resp 18 12/17/16 07:58 BP 147/64 12/17/16 07:00 Pulse Ox 97 12/17/16 07:00 Intake & Output 12/16/16 12/17/16 12/17/16 18:59 06:59 18:59 Intake Total 0 400 Balance 0 400 Intake: Intake, IV Titration 100 Amount Ampicillin-Sulbactam 3 gm 100 In Sodium Chloride 0.9% 100 ml @ 100 mls/hr IVPB Q8HR [facility] Rx#:[id number] Oral 0 300 Other: Voiding Method Toilet Toilet # Voids 2 2 - Constitutional General appearance: Present: average body habitus - EENT Eyes: Absent: abnormal pupil - Respiratory Respiratory: bilateral: CTA - Cardiovascular Rhythm: regular Heart sounds: normal: S1, S2 - Gastrointestinal General gastrointestinal: Present: soft. Absent: tenderness - Psychiatric Psychiatric: Present: A&O x's 3 - Labs CBC & Chem 7: 12/16/16 07:01 12/16/16 07:01 Labs: Abnormal Lab Results - Last 24 Hours (Table) 12/16/16 Range/Units 07:01 Lipase 360 H (23-300) U/L Microbiology - Last 24 Hours (Table) 12/10/16 16:27 Blood Culture - Final Blood No Growth after 144 hours 12/10/16 16:44 Blood Culture - Final Blood No Growth after 144 hours Assessment and Plan (1) Acute pancreatitis Status: Acute (2) Dehydration Status: Acute (3) Gall stone pancreatitis Status: Acute Plan: Await cholecystectomy today. Dr. Brady's group will be covering for weekend. Anticipate DC in AM Time with Patient: Less than 30
[2016-12-17 08:56] LABS: Basophils % (A) 0 %; CH 31.4; CHCM 33.6; Eosinophils # (A) 0.2 k/uL (0-0.7); Eosinophils % (A) 3 %; HCT 33.4 % (34.0-46.0); HDW 3.09; HGB 11.2 gm/dL (11.4-16.0); Luc # (Auto) 0.12; Luc % (Auto) 2; Lymphocytes # (A) 0.8 k/uL (1.0-4.8); Lymphocytes % (A) 11 %; MCH 31.4 pg (25.0-35.0); MCHC 33.5 g/dL (31.0-37.0); MCV 93.9 fL (80.0-100.0); Mean Platelet Volume 6.8; Monocytes # (A) 0.3 k/uL (0-1.0); Monocytes % (A) 5 %; Neutrophils # (A) 5.7 k/uL (1.3-7.7); Neutrophils % (A) 80 %; RBC 3.56 m/uL (3.80-5.40); RDW 13.2 % (11.5-15.5); WBC 7.1 k/uL (3.8-10.6); WBC (Perox) 7.45
[2016-12-17] MEDS: AMPICILLIN-SULBACTAM 3 GM in SODIUM CHLORIDE 0.9% 100 ML IVPB SCH ×2 (09:06→16:41)
[2016-12-17 09:09] LABS: Anion Gap 9 mmol/L; Blood Urea Nitrogen 6 mg/dL (7-17); Calcium 8.5 mg/dL (8.4-10.2); Carbon Dioxide 27 mmol/L (22-30); Chloride 105 mmol/L (98-107); Glucose 104 mg/dL (74-99); Non-African American GFR(MDRD) >60 (>60 ml/min/1.73 sqM); Potassium 3.1 mmol/L (3.5-5.1); Sodium 141 mmol/L (137-145); Total Bilirubin 0.9 mg/dL (0.2-1.3); Total Protein 5.3 g/dL (6.3-8.2)
[2016-12-17 09:11] LABS: ALT 32 U/L (9-52); AST 21 U/L (14-36); Alkaline Phosphatase 63 U/L (38-126)
[2016-12-17] MEDS: POTASSIUM CHLORIDE 10 MEQ, LIDOCAINE 2% INJ 10 MG in SODIUM CHLORIDE 0.9% 100 ML IV SCH ×2 (10:21→12:25)
[2016-12-17] MEDS ORDERED: IV FLUID CONTINUATION 1,000 ML IV ONE ×3 (11:08→13:14)
[2016-12-17] MEDS: ONDANSETRON 4 MG/2 ML VIAL IVP PRN ×2 (11:19→13:41)
[2016-12-17] MEDS ORDERED: DEXAMETHASONE SOD PHOS (MDV) 100 MG/10 ML VIAL IVP ONE (11:24)
[2016-12-17] MEDS ORDERED: BUPIVACAINE (PF) 0.25% 30 ML VIAL SQ ONE ×2 (11:39→12:27)
[2016-12-17] MEDS ORDERED: HEPARIN SODIUM,PORCINE 5,000 UNIT/ML 1 ML VIAL SQ STA (11:50)
[2016-12-17] MEDS ORDERED: ROCURONIUM BROMIDE 10 MG/ML 10 ML VIAL IV ONE (11:58)
[2016-12-17] MEDS ORDERED: fentaNYL (PF) 50 MCG/ML 2 ML AMP ONE (11:58)
[2016-12-17] MEDS ORDERED: SUCCINYLCHOLINE CHLORIDE 100 MG/5 ML SYR IV ONE (11:58)
[2016-12-17] MEDS ORDERED: PROPOFOL 10 MG/ML 20 ML VIAL IV ONE (11:58)
[2016-12-17] MEDS ORDERED: MIDAZOLAM 2 MG/2 ML VIAL ONE (11:58)
[2016-12-17] MEDS ORDERED: NEOSTIGMINE 1 MG/ML 10 ML VIAL ONE (11:58)
[2016-12-17] MEDS ORDERED: GLYCOPYRROLATE 0.2 MG/ML 2 ML VIAL ONE (11:58)
[2016-12-17] MEDS ORDERED: LIDOCAINE 1% INJ 10MG/ML (20 ML MDV) ONE (11:58)
[2016-12-17] MEDS: FUROSEMIDE 20 MG TAB PO SCH (12:25)
[2016-12-17] MEDS: CHOLECALCIFEROL 1,000 UNIT TAB PO SCH (12:25)
[2016-12-17] MEDS ORDERED: HYDROcodone/APAP 5-325MG 1 EACH TAB PO PRN (13:06)
--- NOTE | 2016-12-17 13:08 | P.PCN ---
Date of Procedure: 12/17/16 Preoperative Diagnosis: Postoperative Diagnosis: Procedure(s) Performed: PREOPERATIVE DIAGNOSIS: Gallstone pancreatitis POSTOPERATIVE DIAGNOSIS: Same PROCEDURE: Laparoscopic cholecystectomy SURGEON: Jaci EBL: Minimal see anesthesia record ANESTHESIA: Gen. COMPLICATIONS: None OPERATIVE PROCEDURE: The patient was brought and placed on the operating room table in the supine position. The patient was placed under general anesthesia at that time. The abdomen was prepped and draped in the usual sterile fashion. A small vertical infraumbilical incision was made. The fascia was grasped with the Daniel forceps. The fascia was retracted anteriorly. The Veress needle was advanced into the peritoneal cavity. The saline drop test was normal. Insufflation took place up to 15 mmHg. A 5 mm optical trocar was advanced and the peritoneal cavity. 2 additional 5 mm trochars were placed in the right upper quadrant under direct visualization. A 12 mm trocar was advanced into the epigastric incision site. The gallbladder was retracted superiorly and laterally. The peritoneum overlying the infundibulum was bluntly dissected. The patient's cystic duct was visualized. The cystic duct was quite short and fairly prominent in size which would be anticipated given her presentation. A 2-0 Ethibond stitch was secured down on the patient's side of the cystic duct and tied using the tie knot device. 2 additional clips were also placed on the patient's side. The cystic artery was identified and clipped as well. The gallbladder was then removed from the liver bed using electrocautery. The gallbladder was then removed from the epigastric trocar site with an Endo Catch bag. The gallbladder fossa was irrigated with saline. There was no evidence of any bleeding or biliary drainage seen. The trochars were then removed. The fascia at the 12 millimeter site was closed using a [id number] 0 Vicryl stitch Abelino Jimbo technique. The skin at all 4 sites was closed using a 4-0 Monocryl stitch. At the end of this procedure the sponge and needle counts were correct. DISPOSITION: Stable to the recovery room Implants: Indications for Procedure: Operative Findings: Description of Procedure:
[2016-12-17] MEDS ORDERED: METOCLOPRAMIDE 5 MG/ML 2 ML VIAL IVP ONE (13:56)
[2016-12-17] MEDS: MORPHINE SULFATE 4 MG/ML SYRINGE IVP PRN (21:17)
[2016-12-17] MEDS: LISINOPRIL 20 MG TAB PO SCH (21:18)
[2016-12-17] MEDS: ASPIRIN 81 MG PO SCH (21:18)
[2016-12-18] MEDS: AMPICILLIN-SULBACTAM 3 GM in SODIUM CHLORIDE 0.9% 100 ML IVPB SCH ×4 (00:04→23:45)
[2016-12-18 07:07] LABS: Basophils % (A) 0 %; CH 31.5; Eosinophils % (A) 0 %; HCT 33.2 % (34.0-46.0); HDW 3.09; HGB 10.8 gm/dL (11.4-16.0); Luc # (Auto) 0.09; Luc % (Auto) 1; Lymphocytes # (A) 0.5 k/uL (1.0-4.8); Lymphocytes % (A) 7 %; MCH 31.2 pg (25.0-35.0); MCHC 32.5 g/dL (31.0-37.0); Mean Platelet Volume 7.8; Monocytes # (A) 0.3 k/uL (0-1.0); Monocytes % (A) 5 %; Neutrophils # (A) 5.8 k/uL (1.3-7.7); Neutrophils % (A) 87 %; RBC 3.46 m/uL (3.80-5.40); RDW 13.2 % (11.5-15.5); WBC 6.7 k/uL (3.8-10.6); WBC (Perox) 6.96
[2016-12-18 07:23] LABS: ALT 29 U/L (9-52); AST 23 U/L (14-36); Alkaline Phosphatase 51 U/L (38-126); Anion Gap 7 mmol/L; Blood Urea Nitrogen 12 mg/dL (7-17); Calcium 8.2 mg/dL (8.4-10.2); Carbon Dioxide 25 mmol/L (22-30); Chloride 108 mmol/L (98-107); Glucose 105 mg/dL (74-99); Non-African American GFR(MDRD) >60 (>60 ml/min/1.73 sqM); Potassium 3.9 mmol/L (3.5-5.1); Sodium 140 mmol/L (137-145); Total Bilirubin 0.7 mg/dL (0.2-1.3); Total Protein 4.9 g/dL (6.3-8.2)
[2016-12-18] MEDS: LISINOPRIL 20 MG TAB PO SCH ×2 (09:19→20:53)
[2016-12-18] MEDS: FAMOTIDINE 20 MG/2 ML VIAL IV SCH (09:19)
[2016-12-18] MEDS: ATENOLOL 50 MG TAB PO SCH ×2 (09:19→20:53)
--- NOTE | 2016-12-18 09:46 | P.PN ---
Subjective Principal diagnosis: Gallstone pancreatitis Patient doing well today. Still mild discomfort. Tolerating liquid diet thus far. Liver enzymes are normal. Objective - Vital Signs Vital signs: Vital Signs Temp 97.7 F 12/18/16 07:00 Pulse 69 12/18/16 07:00 Resp 18 12/18/16 07:00 BP 143/69 12/18/16 07:00 Pulse Ox 97 12/18/16 07:00 Intake & Output 12/17/16 12/18/16 12/18/16 18:59 06:59 18:59 Intake Total 1300 1200 Output Total 10 Balance 1290 1200 Weight 74.843 kg 74.843 kg Intake: IV 1300 Intake, IV Titration 1200 Amount IV Fluid Continuation 1, 1200 000 ml As IV [facility] Rx#:[id number] Output: Estimated Blood Loss 10 Other: Voiding Method Toilet Toilet # Voids 2 - Exam Abdomen: Soft, nondistended, mild tenderness, dressings intact - Labs CBC & Chem 7: 12/18/16 06:42 12/18/16 06:42 Labs: Abnormal Lab Results - Last 24 Hours (Table) 12/18/16 12/18/16 Range/Units 06:42 06:42 RBC 3.46 L (3.80-5.40) m/uL Hgb 10.8 L (11.4-16.0) gm/dL Hct 33.2 L (34.0-46.0) % Lymphocytes # 0.5 L (1.0-4.8) k/uL Chloride 108 H (98-107) mmol/L Glucose 105 H (74-99) mg/dL Calcium 8.2 L (8.4-10.2) mg/dL Total Protein 4.9 L (6.3-8.2) g/dL Albumin 2.4 L (3.5-5.0) g/dL Assessment and Plan (1) Gall stone pancreatitis Narrative/Plan: Advance diet. Increase activity. Anticipate discharge later today or tomorrow. Status: Acute
--- NOTE | 2016-12-18 13:23 | XR ---
EXAMINATION TYPE: XR chest 1V portable DATE OF EXAM: 12/18/2016 CLINICAL HISTORY: Difficulty breathing with bilateral leg swelling. TECHNIQUE: Single AP portable upright view of the chest is obtained. COMPARISON: Chest x-ray from 2 days earlier FINDINGS: There is more prominent cardiomegaly with atherosclerotic thoracic aorta. There are persis tent bibasilar opacities felt to reflect small to moderate-sized bilateral pleural effusions and asso ciated bibasilar atelectasis and/or infiltrate. There is new fairly moderate central vascular congest ion and mild to moderate interstitial edema seen bilaterally. Osseous structures are demineralized. IMPRESSION: Findings consistent with worsening of CHF exacerbation as there is more prominent cardiom egaly with persistent small to moderate-sized bilateral pleural effusions felt stable but new moderat e central vascular congestion and mild to moderate bilateral interstitial edema felt present.
[2016-12-18] MEDS: SODIUM CHLORIDE 0.9% 1,000 ML IV SCH (15:34)
[2016-12-18] MEDS: CHOLECALCIFEROL 1,000 UNIT TAB PO SCH (15:35)
[2016-12-18] MEDS ORDERED: FUROSEMIDE 10 MG/ML 4 ML VIAL IV STA (15:37)
--- NOTE | 2016-12-18 15:43 | P.PN ---
Subjective Patient was admitted for gall stone pancreatitis, pancreatic that is improved and patient underwent cholecystectomy. today has extensive peripheral edema along with elevated JVD and crackles because of which obtained a chest x- ray which showed pulmonary edema for which I'll give a dose of Lasix and the echocardiogram will be obtained and repeat chest x-ray tomorrow morning. Although patient is not in significant respiratory distress at this point of time patient may have a competent of mild diastolic dysfunction with acute exacerbation now. Due to IV fluids. [place] patient denied any abdominal pain denied any shortness of breath denied any lightheadedness, chest pain, fever, dysuria, focal weakness. Objective - Vital Signs Vital signs: Vital Signs Temp 97.7 F 12/18/16 07:00 Pulse 80 12/18/16 08:00 Resp 18 12/18/16 08:00 BP 143/69 12/18/16 07:00 Pulse Ox 97 12/18/16 07:00 Intake & Output 12/17/16 12/18/16 12/18/16 18:59 06:59 18:59 Intake Total 1300 1200 Output Total 10 Balance 1290 1200 Weight 74.843 kg 74.843 kg Intake: IV 1300 Intake, IV Titration 1200 Amount IV Fluid Continuation 1, 1200 000 ml As IV [facility] Rx#:[id number] Output: Estimated Blood Loss 10 Other: Voiding Method Toilet Toilet Toilet # Voids 2 - Exam PHYSICAL EXAMINATION: GENERAL: The patient is alert and oriented x3, not in any acute distress. Well developed, well nourished. HEENT: Pupils are round and equally reacting to light. EOMI. No scleral icterus. No conjunctival pallor. Normocephalic, atraumatic. No pharyngeal erythema. No thyromegaly. CARDIOVASCULAR: S1 and S2 present. No murmurs, rubs, or gallops may have JVD. PULMONARY: Chest is clear to auscultation, no wheezing does have bibasilar crackles. ABDOMEN: Soft, nontender, nondistended, normoactive bowel sounds. No palpable organomegaly. MUSCULOSKELETAL: No joint swelling or deformity. EXTREMITIES: No cyanosis, clubbing, patient does have extensive peripheral edema. NEUROLOGICAL: Gross neurological examination did not reveal any focal deficits. SKIN: No rashes. - Labs CBC & Chem 7: 12/18/16 06:42 12/18/16 06:42 Labs: Abnormal Lab Results - Last 24 Hours (Table) 12/18/16 12/18/16 Range/Units 06:42 06:42 RBC 3.46 L (3.80-5.40) m/uL Hgb 10.8 L (11.4-16.0) gm/dL Hct 33.2 L (34.0-46.0) % Lymphocytes # 0.5 L (1.0-4.8) k/uL Chloride 108 H (98-107) mmol/L Glucose 105 H (74-99) mg/dL Calcium 8.2 L (8.4-10.2) mg/dL Total Protein 4.9 L (6.3-8.2) g/dL Albumin 2.4 L (3.5-5.0) g/dL Assessment and Plan Plan: #1 gallstone pancreatitis: Resolved and patient is status post cholecystectomy. Patient is on Unasyn at this time. #2 pulmonary edema: Secondary to IV fluids patient may have chronic diastolic dysfunction with mild acute exacerbation causing her age. Patient will be given a dose of Lasix. An echocardiogram repeat chest x-ray tomorrow. #3 atrial fibrillation: Presently rate controlled. #4 coronary artery disease #5 hypertension #6 osteoarthritis For above-mentioned chronic medical problems I'll continue with her present medications.
[2016-12-18] MEDS: ASPIRIN 81 MG PO SCH (20:53)
[2016-12-18] MEDS: ACETAMINOPHEN TAB 325 MG TAB PO PRN (20:54)
[2016-12-18] MEDS: FAMOTIDINE 20 MG TAB PO SCH (22:27)
[2016-12-18] MEDS: DOCUSATE 100 MG CAP PO PRN (23:45)
--- NOTE | 2016-12-19 06:50 | XR ---
EXAMINATION TYPE: XR chest 1V portable DATE OF EXAM: 12/19/2016 HISTORY: sob and edema. REFERENCE: Previous study dated 12/18/2016. FINDINGS: The heart is enlarged. There are bilateral effusions. There is vascular congestion and pulm onary edema. The overall appearance is very similar to previous. IMPRESSION: CONTINUING CHANGES OF CONGESTIVE HEART FAILURE.
[2016-12-19 08:18] LABS: CH 31.7; CHCM 33.2; HCT 34.8 % (34.0-46.0); HDW 3.06; MCH 30.3 pg (25.0-35.0); MCHC 31.5 g/dL (31.0-37.0); MCV 96.1 fL (80.0-100.0); Mean Platelet Volume 7.4; RBC 3.62 m/uL (3.80-5.40); RDW 13.7 % (11.5-15.5); WBC 7.3 k/uL (3.8-10.6)
[2016-12-19] MEDS: AMPICILLIN-SULBACTAM 3 GM in SODIUM CHLORIDE 0.9% 100 ML IVPB SCH ×2 (08:37→16:50)
[2016-12-19] MEDS: ATENOLOL 50 MG TAB PO SCH ×2 (08:44→21:05)
[2016-12-19] MEDS: LISINOPRIL 20 MG TAB PO SCH ×2 (08:44→21:05)
[2016-12-19] MEDS: FAMOTIDINE 20 MG TAB PO SCH ×2 (08:44→21:05)
[2016-12-19 08:50] LABS: Anion Gap 7 mmol/L; Blood Urea Nitrogen 11 mg/dL (7-17); Calcium 8.3 mg/dL (8.4-10.2); Carbon Dioxide 30 mmol/L (22-30); Chloride 104 mmol/L (98-107); Glucose 100 mg/dL (74-99); Non-African American GFR(MDRD) >60 (>60 ml/min/1.73 sqM); Potassium 3.6 mmol/L (3.5-5.1); Sodium 141 mmol/L (137-145)
[2016-12-19] MEDS ORDERED: FUROSEMIDE 10 MG/ML 2 ML VIAL IV STA (09:29)
[2016-12-19] MEDS ORDERED: Potassium Replacement Protocol 1 EACH MISC MISCELLANE PRN ×2 (09:43→16:27)
[2016-12-19] MEDS ORDERED: POTASSIUM CHLORIDE ER 20 MEQ TAB.ER PO SCH ×2 (10:00→17:00)
--- NOTE | 2016-12-19 10:09 | P.PN ---
Subjective Principal diagnosis: Gallstone pancreatitis Patient complaining of some shortness of breath this morning. Denies abdominal pain. Tolerating diet. Objective - Vital Signs Vital signs: Vital Signs Temp 98.2 F 12/19/16 07:00 Pulse 80 12/19/16 07:39 Resp 16 12/19/16 07:39 BP 159/68 12/19/16 07:00 Pulse Ox 90 L 12/19/16 07:44 Intake & Output 12/18/16 12/19/16 12/19/16 18:59 06:59 18:59 Intake Total 120 660 Balance 120 660 Weight 74.843 kg Intake: Intake, IV Titration 100 Amount Ampicillin-Sulbactam 3 gm 100 In Sodium Chloride 0.9% 100 ml @ 100 mls/hr IVPB Q8HR [facility] Rx#:[id number] Oral 120 560 Other: Voiding Method Toilet Toilet Toilet # Voids 3 2 1 - Exam Abdomen: Soft, nontender, nondistended - Labs CBC & Chem 7: 12/19/16 07:33 12/19/16 07:33 Labs: Abnormal Lab Results - Last 24 Hours (Table) 12/19/16 12/19/16 Range/Units 07:33 07:33 RBC 3.62 L (3.80-5.40) m/uL Hgb 11.0 L (11.4-16.0) gm/dL Glucose 100 H (74-99) mg/dL Calcium 8.3 L (8.4-10.2) mg/dL Assessment and Plan (1) Gall stone pancreatitis Narrative/Plan: Continue diet. IV Lasix. Home when cleared by medicine. Status: Acute
[2016-12-19] MEDS ORDERED: FUROSEMIDE 10 MG/ML 4 ML VIAL IV SCH (11:30)
--- NOTE | 2016-12-19 11:55 | P.PN ---
Subjective Patient was admitted for gall stone pancreatitis, pancreatic that is improved and patient underwent cholecystectomy. today has extensive peripheral edema along with elevated JVD and crackles because of which obtained a chest x- ray which showed pulmonary edema for which I'll give a dose of Lasix and the echocardiogram will be obtained and repeat chest x-ray tomorrow morning. Although patient is not in significant respiratory distress at this point of time patient may have a competent of mild diastolic dysfunction with acute exacerbation now. Due to IV fluids. 12/19/2016 Patient is comparing of shortness of breath did diurese well with IV diuretic therapy patient continues to have pulmonary edema on the repeat chest x-ray today I'm starting her on 40 mg IV twice a day of Lasix, if her fluid status improves patient can be discharged tomorrow. patient denied any abdominal paindenied any lightheadedness, chest pain, fever, dysuria, focal weakness. Objective - Vital Signs Vital signs: Vital Signs Temp 98.2 F 12/19/16 07:00 Pulse 80 12/19/16 07:39 Resp 16 12/19/16 07:39 BP 159/68 12/19/16 07:00 Pulse Ox 90 L 12/19/16 07:44 Intake & Output 12/18/16 12/19/16 12/19/16 18:59 06:59 18:59 Intake Total 120 660 Balance 120 660 Weight 74.843 kg Intake: Intake, IV Titration 100 Amount Ampicillin-Sulbactam 3 gm 100 In Sodium Chloride 0.9% 100 ml @ 100 mls/hr IVPB Q8HR [facility] Rx#:[id number] Oral 120 560 Other: Voiding Method Toilet Toilet Toilet # Voids 3 2 1 - Exam PHYSICAL EXAMINATION: GENERAL: The patient is alert and oriented x3, not in any acute distress. Well developed, well nourished. HEENT: Pupils are round and equally reacting to light. EOMI. No scleral icterus. No conjunctival pallor. Normocephalic, atraumatic. No pharyngeal erythema. No thyromegaly. CARDIOVASCULAR: S1 and S2 present. No murmurs, rubs, or gallops may have JVD. PULMONARY: Chest is clear to auscultation, no wheezing does have bibasilar crackles. ABDOMEN: Soft, nontender, nondistended, normoactive bowel sounds. No palpable organomegaly. MUSCULOSKELETAL: No joint swelling or deformity. EXTREMITIES: No cyanosis, clubbing, patient does have extensive peripheral edema , which improved today NEUROLOGICAL: Gross neurological examination did not reveal any focal deficits. SKIN: No rashes. - Labs CBC & Chem 7: 12/19/16 07:33 12/19/16 07:33 Labs: Abnormal Lab Results - Last 24 Hours (Table) 12/19/16 12/19/16 Range/Units 07:33 07:33 RBC 3.62 L (3.80-5.40) m/uL Hgb 11.0 L (11.4-16.0) gm/dL Glucose 100 H (74-99) mg/dL Calcium 8.3 L (8.4-10.2) mg/dL Assessment and Plan Plan: #1 gallstone pancreatitis: Resolved and patient is status post cholecystectomy. Patient is on Unasyn at this time. #2 pulmonary edema: Secondary to IV fluids patient may have chronic diastolic dysfunction with mild acute exacerbation causing her age. Patient will be given a dose of Lasix. An echocardiogram pending patient repeat chest x-ray did show continued pulmonary edema patient was started on 40 IV twice a day of Lasix. #3 atrial fibrillation: Presently rate controlled. #4 coronary artery disease #5 hypertension #6 osteoarthritis For above-mentioned chronic medical problems I'll continue with her present medications.
[2016-12-19] MEDS: ALBUTEROL NEBULIZED 2.5 MG/3 ML INHALATION PRN (12:05)
[2016-12-19] MEDS: CHOLECALCIFEROL 1,000 UNIT TAB PO SCH (12:53)
[2016-12-19] MEDS: FUROSEMIDE 10 MG/ML 4 ML VIAL IV SCH (18:02)
[2016-12-19] MEDS: ASPIRIN 81 MG PO SCH (21:04)
[2016-12-19 22:36] VITALS: RESP 16
[2016-12-20] MEDS: AMPICILLIN-SULBACTAM 3 GM in SODIUM CHLORIDE 0.9% 100 ML IVPB SCH ×4 (00:26→22:57)
[2016-12-20] MEDS: FUROSEMIDE 10 MG/ML 4 ML VIAL IV SCH (05:20)
[2016-12-20] MEDS: LISINOPRIL 20 MG TAB PO SCH ×2 (07:36→22:53)
[2016-12-20] MEDS: ATENOLOL 50 MG TAB PO SCH ×2 (07:37→22:53)
[2016-12-20] MEDS: FAMOTIDINE 20 MG TAB PO SCH ×2 (07:37→22:53)
--- NOTE | 2016-12-20 08:11 | P.PN ---
Subjective Principal diagnosis: Continuing care/pancreatitis. This is a continue progress on a 76-year-old white female essentially admitted for gallstone pancreatitis is postop day #2 for cholecystectomy. The patient is complaining of shortness of breath. We'll repeat chest x-ray. Echocardiogram is now pending. I suspect she will need Lasix Objective - Vital Signs Vital signs: Vital Signs Temp 97.5 F L 12/19/16 22:36 Pulse 74 12/20/16 03:24 Resp 16 12/20/16 03:24 BP 154/71 12/19/16 22:36 Pulse Ox 99 12/19/16 22:36 Intake & Output 12/19/16 12/20/16 12/20/16 18:59 06:59 18:59 Intake Total 160 Output Total 1600 Balance -1440 Weight 85.9 kg Intake: Oral 160 Output: Urine 1600 Other: Voiding Method Toilet Toilet # Voids 2 1 - Constitutional General appearance: Present: average body habitus - EENT Eyes: Absent: abnormal pupil - Respiratory Respiratory: bilateral: CTA - Cardiovascular Rhythm: regular Heart sounds: normal: S1, S2 - Gastrointestinal General gastrointestinal: Present: soft. Absent: tenderness - Neurologic Neurologic: Present: CNII-XII intact - Labs CBC & Chem 7: 12/19/16 07:33 12/19/16 20:13 Labs: Abnormal Lab Results - Last 24 Hours (Table) 12/19/16 12/19/16 Range/Units 07:33 07:33 RBC 3.62 L (3.80-5.40) m/uL Hgb 11.0 L (11.4-16.0) gm/dL Glucose 100 H (74-99) mg/dL Calcium 8.3 L (8.4-10.2) mg/dL Assessment and Plan (1) Acute pancreatitis Status: Acute (2) Dehydration Status: Acute (3) Gall stone pancreatitis Status: Acute Plan: Postop day #2 for cholecystectomy. The patient is stabilizing. Check chest x-ray and echocardiogram. Anticipate discharge in next 24-48 hours if stabilizing. Time with Patient: Less than 30
[2016-12-20 08:22] LABS: Anion Gap 9 mmol/L; Blood Urea Nitrogen 9 mg/dL (7-17); Calcium 8.5 mg/dL (8.4-10.2); Carbon Dioxide 34 mmol/L (22-30); Chloride 96 mmol/L (98-107); Glucose 116 mg/dL (74-99); Non-African American GFR(MDRD) >60 (>60 ml/min/1.73 sqM); Potassium 3.5 mmol/L (3.5-5.1); Sodium 139 mmol/L (137-145)
--- NOTE | 2016-12-20 08:34 | XR ---
EXAMINATION TYPE: XR chest 2V DATE OF EXAM: 12/20/2016 COMPARISON: NONE HISTORY: Congestive heart failure, shortness of breath, and edema. TECHNIQUE: Frontal and lateral views of the chest are obtained. FINDINGS: There is a small layering left pleural effusion and trace right pleural effusion and assoc iation with bibasilar compressive subsegmental atelectasis. The left effusion appears loculated as do es the trace right effusion to a lesser degree. Overall the examination has improved with resolution of the previously seen pulmonary vascular congestion and interstitial edema. Cardiomegaly remains, pa rtially visualized due to silhouetting by the effusions. A scant amount of intrafissural fluid is see n within the minor fissure. Again there is osseous demineralization and degenerative changes at the a cromioclavicular joints. Cholecystectomy clips are noted within the right upper quadrant. IMPRESSION: 1. Improving sequela of congestive heart failure with resolved interstitial edema and pulmonary vascu lar congestion. 2. Small left and trace right partially loculated pleural effusions in association with compressive a telectasis.
--- NOTE | 2016-12-20 14:16 | P.PN ---
Progress Note - Text Patient doing well today. Shortness of breath is improved. Tolerating diet. Denies any significant pain. Incisions are clean and dry. Continue diuresis.
[2016-12-20] MEDS: FUROSEMIDE 10 MG/ML 2 ML VIAL IV SCH ×3 (15:57→22:57)
[2016-12-20] MEDS: CHOLECALCIFEROL 1,000 UNIT TAB PO SCH (16:05)
--- NOTE | 2016-12-20 16:39 | ECHOF ---
Referral Reason:CHF MEASUREMENTS -------- HEIGHT: 167.6 cm WEIGHT: 85.7 kg BP: 154/71 RVIDd: 2.2 cm (< 3.3) IVSd: 1.2 cm (0.6 - 1.1) LVIDd: 3.7 cm (3.9 - 5.3) LVPWd: 1.1 cm (0.6 - 1.1) IVSs: 1.5 cm LVIDs: 2.9 cm LVPWs: 1.4 cm LAESV Index (A-L): 24.40 ml/m Ao Diam: 3.2 cm (2.0 - 3.7) AV Cusp: 0.9 cm (1.5 - 2.6) LA Diam: 2.9 cm (2.7 - 3.8) MV EXCURSION: 14.230 mm (> 18.000) MV EF SLOPE: 106 mm/s (70 - 150) EPSS: 0.7 cm MV E Bertin: 1.13 m/s MV DecT: 239 ms MV A Bertin: 0.84 m/s MV E/A Ratio: 1.35 RAP: 5.00 mmHg RVSP: 10.17 mmHg FINDINGS -------- Sinus rhythm. This was a technically adequate study. There is borderline concentric left ventricular hypertrophy. Overall left ventricular systolic function is normal with, an EF between 55 - 60 %. The right ventricle is normal in size and function. Normal LA size by volume 22+/-6 ml/m2. The right atrium is normal in size. Aortic valve is trileaflet and is mildly thickened. There is no evidence of aortic regurgitation. There is no evidence of aortic stenosis. The mitral valve leaflets are mildly thickened. Mild mitral annular calcification present. There is trace to mild mitral regurgitation. Trace tricuspid regurgitation present. There is no evidence of pulmonary hypertension. The right ventricular systolic pressure, as measured by Doppler, is 10.17mmHg. The pulmonic valve is normal. The aortic root size is normal. Normal inferior vena cava with normal inspiratory collapse consistent with estimated right atrial pressure of 5 mmHg. The pericardium is normal. There is no pericardial effusion. Large Pleural Effusion. CONCLUSIONS -------- 1. Sinus rhythm. 2. Trace tricuspid regurgitation present. 3. There is no evidence of pulmonary hypertension. 4. The right ventricular systolic pressure, as measured by Doppler, is 10.17mmHg. 5. The aortic root size is normal. 6. There is no pericardial effusion. 7. Large Pleural Effusion. 8. This was a technically adequate study. 9. There is borderline concentric left ventricular hypertrophy. 10. Overall left ventricular systolic function is normal with, an EF between 55 - 60 %. 11. Normal LA size by volume 22+/-6 ml/m2. 12. Aortic valve is trileaflet and is mildly thickened. 13. The mitral valve leaflets are mildly thickened. 14. Mild mitral annular calcification present. 15. There is trace to mild mitral regurgitation. PLANT SAFETY ENGINEER: Luis De Dios RDCS
[2016-12-20] MEDS: ASPIRIN 81 MG PO SCH (22:53)
[2016-12-21 07:53] LABS: CH 31.5; CHCM 33.5; HCT 32.8 % (34.0-46.0); HDW 3.12; HGB 10.8 gm/dL (11.4-16.0); MCH 31.2 pg (25.0-35.0); MCHC 33.1 g/dL (31.0-37.0); MCV 94.2 fL (80.0-100.0); Mean Platelet Volume 7.5; RBC 3.48 m/uL (3.80-5.40); RDW 13.3 % (11.5-15.5); WBC 3.9 k/uL (3.8-10.6)
[2016-12-21 08:21] LABS: Anion Gap 10 mmol/L; Calcium 8.1 mg/dL (8.4-10.2); Carbon Dioxide 30 mmol/L (22-30); Chloride 98 mmol/L (98-107); Glucose 111 mg/dL (74-99); Non-African American GFR(MDRD) >60 (>60 ml/min/1.73 sqM); Sodium 138 mmol/L (137-145); Total Bilirubin 0.8 mg/dL (0.2-1.3); Total Protein 5.1 g/dL (6.3-8.2)
[2016-12-21 08:26] LABS: Blood Urea Nitrogen 10 mg/dL (7-17); Potassium 3.6 mmol/L (3.5-5.1)
[2016-12-21 08:27] LABS: ALT 35 U/L (9-52); AST 28 U/L (14-36); Alkaline Phosphatase 44 U/L (38-126)
[2016-12-21 08:32] VITALS: BP 165/70; PULSE 78; TEMP 98.6
--- NOTE | 2016-12-21 08:32 | P.DS ---
Providers Date of admission: 12/10/16 10:19 Attending physician: Rg Loo Consults: 12/11/16 22:13 Consult Physician Urgent Consulting Provider: Johnny Beatty Consult Reason/Comments: cholecystectomy Do you want consulting provider notified?: Yes Primary care physician: Rg Loo - Discharge Diagnosis(es) (1) Acute pancreatitis Current Visit: Yes Status: Acute (2) Dehydration Current Visit: Yes Status: Acute (3) Gall stone pancreatitis Current Visit: Yes Status: Acute Hospital Course: This is a discharge summary 76-year-old white female essentially admitted for pain otitis. She was found have gallstone issues and had cholecystectomy. She' s also found have significant pleural effusion. We have told her to increase her Lasix daily for the next week and then we will recheck for potassium function. The patient is discharged in stable condition with appropriate pain control. The patient will follow-up with me in about one week. For safety issues, we'll consult home health Patient Condition at Discharge: Fair Plan - Discharge Summary New Discharge Prescriptions: New Hydrocodone/Acetaminophen [[place] 5-325] 1 - 2 each PO Q4HR PRN #30 tab PRN Reason: pain HYDROcodone/APAP 5-325MG [[place] 5-325] 1 tab PO Q6HR PRN #30 tab PRN Reason: Pain Continue Nitroglycerin Sl Tabs [Nitrostat] 0.4 mg SUBLINGUAL DIRECTED PRN PRN Reason: Chest Pain Furosemide [Lasix] 20 mg PO MOWEFR Cholecalciferol [Vitamin D3] 2,000 units PO DAILY Lisinopril [Zestril] 20 mg PO BID Atorvastatin [Lipitor] 80 mg PO HS Atenolol [Tenormin] 50 mg PO BID Aspirin [Adult Low Dose Aspirin EC] 81 mg PO HS Clopidogrel Bisulfate [Plavix] 75 mg PO DAILY Multivitamin [Multivitamins Adult Gummies] 2 tab PO DAILY Discharge Medication List Aspirin [Adult Low Dose Aspirin EC] 81 mg PO HS 06/17/16 [History] Atenolol [Tenormin] 50 mg PO BID 06/17/16 [History] Atorvastatin [Lipitor] 80 mg PO HS 06/17/16 [History] Cholecalciferol [Vitamin D3] 2,000 units PO DAILY 06/17/16 [History] Furosemide [Lasix] 20 mg PO MOWEFR 06/17/16 [History] Lisinopril [Zestril] 20 mg PO BID 06/17/16 [History] Nitroglycerin Sl Tabs [Nitrostat] 0.4 mg SUBLINGUAL DIRECTED PRN 06/17/16 [ History] Clopidogrel Bisulfate [Plavix] 75 mg PO DAILY 10/02/16 [History] Multivitamin [Multivitamins Adult Gummies] 2 tab PO DAILY 10/02/16 [History] Hydrocodone/Acetaminophen [[place] 5-325] 1 - 2 each PO Q4HR PRN #30 tab 12/17/16 [Rx] HYDROcodone/APAP 5-325MG [[place] 5-325] 1 tab PO Q6HR PRN #30 tab 12/21/16 [Rx] Follow up Appointment(s)/Referral(s): Johnny Beatty MD [Medical Doctor] - 2 Weeks Rg Loo MD [Primary Care Provider] - 1 Week
[2016-12-21] MEDS: ACETAMINOPHEN TAB 325 MG TAB PO PRN (08:39)
[2016-12-21] MEDS: AMPICILLIN-SULBACTAM 3 GM in SODIUM CHLORIDE 0.9% 100 ML IVPB SCH (08:40)
[2016-12-21] MEDS: ATENOLOL 50 MG TAB PO SCH (08:41)
[2016-12-21] MEDS: FAMOTIDINE 20 MG TAB PO SCH (08:41)
[2016-12-21] MEDS: LISINOPRIL 20 MG TAB PO SCH (08:42)
[2016-12-21] MEDS: FUROSEMIDE 10 MG/ML 2 ML VIAL IV SCH (08:42)
[2016-12-21] MEDS ORDERED: MAGNESIUM HYDROXIDE 2,400 MG/10 ML CUP PO PRN (08:45)
[2016-12-21] MEDS ORDERED: FUROSEMIDE 10 MG/ML 2 ML VIAL IV SCH (09:00)
--- NOTE | 2016-12-23 08:14 | CDI ---
In responding to this query, please exercise your independent professional judgment. The [facility] Coding Staff and Clinical Documentation Specialists appreciate your assistance in clarifying documentation, maintaining compliance with coding guidelines, accurately documenting patients condition and capturing severity of illness. The fact that a question is asked does not imply that any particular answer is desired or expected. Communication forms are a method of clarifying documentation and are not made part of the Legal Health Record. Thank you in advance for your clarification. Last Revision, March 2015 Yarelis Alcala [address] [place] [place] [address] Documentation Clarification Form Date: 12/23/2016 7:51:00 AM From: Rina Amanda Phone: Admit Date: 12/10/2016 10:19:00 AM Patient Name: Kasie Thomas Visit Number: [id number] Discharge Date: Dr. Rg Loo Sepsis is documented in an addendum in the H&P. Patient history/risk factors: Patient was admitted with acute gallstone pancreatitis. Clinical Indicators: states in the consult note the patient had low grade fever and leukocytosis on 12/11. Lab findings: WBC 15.2 on admit, Lactic acid 2.8 on admit, lactic acid sepsis reflex Y on admit Vital Signs: T. 97.4 on day of admit then 100 on 12/11. P. 83, R. 18, BP 139/68 Treatment: IV Ampicillin Sodium/SulbactamSodium In your professional opinion, can you please clarify if Sepsis was Ruled In or Ruled Out? Other Unable to determine Please document in your progress notes and discharge summary in order to capture severity of illness and risk of mortality. Include clinical findings that support your diagnosis. FYI: Press F11 to launch patient chart. If you have a question about this query, please contact Mary Jo Wells, Case Management Assistant at [phone] between 8am and 5pm. DESHAWN
== END 2016-12-21 11:30 | disposition home or self-care (01) | DRG 417 ==
LOC: EC 07:14 → 5MS5E 10:19
PROVIDERS: ADMIT Family Medicine; ATTEND Family Medicine
PROC: 0FT44ZZ Resection of Gallbladder, Percutaneous Endoscopic Approach (ICD-10-PCS; principal; 2016-12-17 08:30)
DX: K85.10 Biliary acute pancreatitis without necrosis or infection (principal); I50.33 Acute on chronic diastolic (congestive) heart failure; I48.91 Unspecified atrial fibrillation; E86.0 Dehydration; E78.5 Hyperlipidemia, unspecified; I25.10 Atherosclerotic heart disease of native coronary artery without angina pectoris; E66.9 Obesity, unspecified; I11.0 Hypertensive heart disease with heart failure; I73.9 Peripheral vascular disease, unspecified; I83.90 Asymptomatic varicose veins of unspecified lower extremity; M19.90 Unspecified osteoarthritis, unspecified site; Z79.82 Long term (current) use of aspirin; Z79.899 Other long term (current) drug therapy; Z79.02 Long term (current) use of antithrombotics/antiplatelets; Z88.2 Allergy status to sulfonamides; Z88.1 Allergy status to other antibiotic agents; Z91.040 Latex allergy status; Z95.5 Presence of coronary angioplasty implant and graft; Z87.891 Personal history of nicotine dependence; Z86.14 Personal history of Methicillin resistant Staphylococcus aureus infection; Z68.25 Body mass index [BMI] 25.0-25.9, adult
CPT/HCPCS: 36415; 71010; 71020; 74177; 76705; 80048; 80053; 81001; 82150; 82248; 82550; 82553; 83605; 83690; 83735; 84100; 84132; 84484; 85025; 85027; 85610; 85730; 87040; 87086; 88304; 93005; 93306; 94640; 96361; 96374; 96375; 99285

== ENCOUNTER → 2017-09-03 | Outpatient (CLI) | payer MEDICARE, BC ==
--- NOTE | 2017-09-03 22:39 | MR ---
EXAMINATION TYPE: MR knee LT wo con DATE OF EXAM: 09/03/2017 COMPARISON: Outside left knee x-ray from yesterday. HISTORY: Left knee pain and swelling for 6 weeks. TECHNIQUE: Multiplanar, multisequence images of the knee is performed without IV contrast. FINDINGS: MEDIAL MENISCUS: Anterior horn is intact without tear. There is globular increased signal posterior h orn medial meniscus, does not distinctly extend to articular surface. LATERAL MENISCUS: Anterior and posterior horns are intact without tear. CRUCIATE LIGAMENTS: The anterior and posterior cruciate ligaments are intact and unremarkable. COLLATERAL LIGAMENTS: The medial collateral ligament and lateral collateral ligament complex are inta ct and unremarkable. EXTENSOR MECHANISM: Visualized quadriceps and patellar tendons are intact. EFFUSION: There is fairly moderate size suprapatellar joint effusion. POPLITEAL CYST: No popliteal/jimenez cyst. TRICOMPARTMENT SPACES: There is fairly moderate tricompartment joint space loss most prominent patell ofemoral compartment. Mild to moderate tricompartment joint space spurring is seen. CARTILAGE: There is full thickness chondromalacia patella with significant cartilaginous loss along t he posterior patellar pole seen. BONE MARROW SIGNAL: There is heterogeneous multifocal increased T2 signal area posterior patellar dejuan e at areas of full-thickness cartilaginous loss are noted. OTHER: No additional significant abnormality is appreciated. IMPRESSION: 1. Background fairly moderate tricompartment degenerative changes most prominent patellofemoral level with significant chondromalacia patella noted as detailed above. 2. Degenerative intrasubstance tear posterior horn medial meniscus, no full-thickness meniscal tear i s identified. 3. Fairly moderate size suprapatellar joint effusion.
== END ==
LOC: RADMRIMAIN 09:21
PROVIDERS: ATTEND Orthopaedic Surgery
DX: M23.222 Derangement of posterior horn of medial meniscus due to old tear or injury, left knee (principal); M22.42 Chondromalacia patellae, left knee; M25.462 Effusion, left knee

== ENCOUNTER → 2017-09-30 | Outpatient (CLI) | payer MEDICARE, BC ==
[2017-09-30 09:13] LABS: Basophils % (A) 1 %; Eosinophils # (A) 0.2 k/uL (0-0.7); Eosinophils % (A) 3 %; HCT 40.3 % (34.0-46.0); HGB 13.1 gm/dL (11.4-16.0); Lymphocytes # (A) 1.4 k/uL (1.0-4.8); Lymphocytes % (A) 24 %; MCH 31.4 pg (25.0-35.0); MCHC 32.5 g/dL (31.0-37.0); MCV 96.6 fL (80.0-100.0); Monocytes # (A) 0.3 k/uL (0-1.0); Monocytes % (A) 5 %; Neutrophils # (A) 3.8 k/uL (1.3-7.7); Neutrophils % (A) 65 %; Platelet Count 259 k/uL (150-450); RBC 4.17 m/uL (3.80-5.40); RDW 12.7 % (11.5-15.5); WBC 5.8 k/uL (3.8-10.6)
[2017-09-30 09:22] LABS: Potassium 4.6 mmol/L (3.5-5.1)
== END ==
LOC: LABPAT 08:31
PROVIDERS: ATTEND Orthopaedic Surgery
DX: Z01.818 Encounter for other preprocedural examination (principal); M23.92 Unspecified internal derangement of left knee; Z01.812 Encounter for preprocedural laboratory examination
CPT/HCPCS: 80051; 85025; 93005

== ENCOUNTER → 2017-09-30 | Outpatient (CLI) | payer MEDICARE, BC | END | disposition home or self-care (01) | LOC: LABWHC1 08:35 | PROVIDERS: ATTEND Family Medicine | DX: Z13.1 Encounter for screening for diabetes mellitus (principal); Z83.3 Family history of diabetes mellitus | CPT/HCPCS: 36415; 82947 ==

== ENCOUNTER 2017-10-19 08:54 | Day surgery (SDC) | payer MEDICARE, BC ==
[2017-10-04 14:37] VITALS: BMI 26.9
--- NOTE | 2017-10-18 20:18 | HP ---
HISTORY AND PHYSICAL DATE OF SURGERY: 10/19/2017 Kasie Thomas is a 76-year-old patient seen with progressive left knee pain. Treatment options were discussed with her. She elected to proceed with left knee arthroscopy. Consent was obtained. Cardiac clearance was provided. Dr. Mancia. PAST MEDICAL HISTORY: 1. Hypertension. 2. Hyperlipidemia. 3. Coronary artery disease. PAST SURGICAL HISTORY: Coronary artery catheterization with stent insertion. DAILY MEDICATIONS: 1. Atenolol. 2. Atorvastatin. 3. Furosemide. 4. Lisinopril. 5. Aspirin. 6. Meclizine. ALLERGIES: 1. BACTRIM. 2. MINOCYCLINE. SOCIAL HISTORY: Patient denies current tobacco use. PHYSICAL EVALUATION OF LEFT KNEE: Range of motion is negative 2/3 to 115 degrees. Tenderness, medial and lateral joint lines. Positive lateral Deshawn's. Ligaments are stable. Hip rotation without pain. Distal neurovascular exam intact. RADIOGRAPHS: Radiographs of the left knee revealed mild medial and moderate patellofemoral compartment osteoarthritis. MRI of the left knee revealed meniscal tear, joint effusion and osteoarthritis. IMPRESSION: Internal derangement of left knee with meniscal tear. PLAN: Left knee arthroscopy with partial meniscectomy and debridement. MMODL / IJN: [id number] /
[~2017-10-19 08:54] MED LIST changes: -SODIUM CHLORIDE 0.9% 1,000 ML IV SCH; +ceFAZolin IN SWFI 2 GM/20 ML SYRINGE IVP ONE
[2017-10-19 09:18] VITALS: TEMP 98.4
[2017-10-19] MEDS ORDERED: LACTATED RINGERS 1,000 ML IV ONE ×2 (09:25→12:48)
[2017-10-19] MEDS ORDERED: ONDANSETRON 4 MG/2 ML VIAL IVP ONE (09:26)
[2017-10-19] MEDS ORDERED: DEXAMETHASONE SOD PHOSPHATE 10 MG/ML 1 ML VIAL IV ONE (09:26)
[2017-10-19] MEDS ORDERED: ONDANSETRON 4 MG/2 ML VIAL ONE (09:27)
[2017-10-19] MEDS ORDERED: PROPOFOL 10 MG/ML 20 ML VIAL IV ONE (11:06)
[2017-10-19] MEDS ORDERED: MIDAZOLAM 2 MG/2 ML VIAL ONE (11:06)
[2017-10-19] MEDS ORDERED: LIDOCAINE 1% INJ 10MG/ML (20 ML MDV) ONE (11:06)
[2017-10-19] MEDS ORDERED: HYDROmorphone (PF) 1 MG/ML ONE (11:06)
[2017-10-19] MEDS ORDERED: fentaNYL (PF) 50 MCG/ML 2 ML AMP ONE (11:06)
[2017-10-19] MEDS ORDERED: KETOROLAC 30 MG/ML 1 ML VIAL ONE (11:06)
--- NOTE | 2017-10-19 11:59 | P.OP ---
Date of Procedure: 10/19/17 Preoperative Diagnosis: Internal derangement left knee Postoperative Diagnosis: 1. Tear medial and lateral meniscus left knee 2. Grade 2/3 chondromalacia medial femoral condyle left knee 3. Grade 3 chondromalacia lateral femoral condyle left knee 4. 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 Reactive synovitis medial, lateral and suprapatellar compartments left knee Procedure(s) Performed: 1. Arthroscopic partial medial and lateral meniscectomy left knee 2. Arthroscopic chondroplasty medial femoral condyle left knee 3. Arthroscopic chondroplasty lateral femoral condyle left knee 4. Arthroscopic chondroplasty patella left knee 5. Arthroscopic partial synovectomy medial, lateral and suprapatellar compartments left knee Anesthesia: OTTOA, local Surgeon: Rambo Philip Estimated Blood Loss (ml): 12 Pathology: none sent Condition: stable Disposition: PACU Indications for Procedure: 75-year-old patient seen with progressive left knee pain. After having treatment options discussed, she elected to proceed with arthroscopy. Operative Findings: see description of procedure Description of Procedure: Patient was taken to the operative suite. Patient underwent a general anesthetic by the department of anesthesia. Patient was given preoperative antibiotics. The left lower extremity was placed in a well-padded arthroscopic leg jaimes. The left leg was prepped and draped in the normal sterile orthopedic fashion. A lateral parapatellar and suprapatellar incision was made. Trochars were inserted. Arthroscopy was initiated. Suprapatellar pouch revealed diffuse, thick reactive synovitis. The patellofemoral joint appeared to articulate congruently. There was grade 3/4 chondromalacia of both the patella and femoral sulcus with diffuse osteochondral tears present. The scope was guided into the medial gutter. No loose bodies or plica were identified. The scope was then guided into the medial compartment. A medial parapatellar incision was made. Trocar inserted followed by probe. There was a complex tear posterior horn medial meniscus which did extend into the midbody. There were grade 2/3 chondromalacia changes of the medial femoral condyle with some osteochondral tears present. There was reactive synovitis anteriorly. I performed a partial medial meniscectomy down to stable tissue. I performed a chondroplasty of the medial femoral condyle down to stable tissue. I performed a partial synovectomy decompressing the reactive synovitis anteriorly. I reintroduced the probe and noted good stability about the residual meniscus and stable residual osteochondral surface of the medial femoral condyle. Scope and probe were then guided into the intercondylar notch. Cruciates were identified , probed and found to be stable. The scope and probe were then guided into lateral compartment. There was a radial tear posterior horn and also midbody lateral meniscus. There were grade 3 chondromalacia changes of lateral femoral condyle with some osteochondral tears present. There was reactive synovitis anteriorly. I performed a partial lateral meniscectomy down to stable tissue. I performed a chondroplasty of the medial femoral condyle down to stable tissue. I performed a partial synovectomy. The residual meniscus and osteochondral surface were stable. The scope was in guided back into the suprapatellar compartment. I introduced a motorized shaver into the super patellar compartment. I debrided piecemeal fragments of meniscus I encountered. I performed a chondroplasty of the patella and femoral sulcus getting down to stable osteochondral tissue. I performed a partial synovectomy. Shaver was removed. I took one more look around the entire knee, no residual debris. Instruments were now removed from the joint. The joint was infiltrated with .25% Marcaine. Nylon suture was utilized to repair the portal sites. Sterile dressings were applied. The patient was placed into a DEWEY hose. No tourniquet was utilized. The patient was awakened, transferred to a bed and taken to recovery stable satisfactory condition.
[2017-10-19] MEDS ORDERED: diphenhydrAMINE 50 MG/ML 1 ML VIAL IVP ONE (12:00)
[2017-10-19] MEDS ORDERED: METOCLOPRAMIDE 5 MG/ML 2 ML VIAL IVP ONE (12:16)
[2017-10-19 13:33] VITALS: BP 164/73; PULSE 65; RESP 18
== END 2017-10-19 13:56 | disposition home or self-care (01) ==
LOC: OR 08:54
PROVIDERS: ATTEND Orthopaedic Surgery
DX: S83.242A Other tear of medial meniscus, current injury, left knee, initial encounter (principal); S83.282A Other tear of lateral meniscus, current injury, left knee, initial encounter; X58.XXXA Exposure to other specified factors, initial encounter; M22.42 Chondromalacia patellae, left knee; M65.862 Other synovitis and tenosynovitis, left lower leg; I10 Essential (primary) hypertension; E78.5 Hyperlipidemia, unspecified; I25.10 Atherosclerotic heart disease of native coronary artery without angina pectoris; Z95.5 Presence of coronary angioplasty implant and graft; Z79.82 Long term (current) use of aspirin; Z79.899 Other long term (current) drug therapy; Z88.1 Allergy status to other antibiotic agents; Z88.2 Allergy status to sulfonamides; Z79.02 Long term (current) use of antithrombotics/antiplatelets; Z91.040 Latex allergy status
CPT/HCPCS: 29880; J2250; J1200; J1100; J2765; J2405; J2001; J3010; J1885; J1170; J2704; J0690

== ENCOUNTER → 2019-05-07 | Outpatient (CLI) | payer MEDICARE, BC ==
[2019-05-07 17:06] LABS: African American GFR (CKD) >90 (>60 ml/min/1.73 sqM); Blood Urea Nitrogen 22 mg/dL (7-17); Non-African American GFR(CKD) 85 (>60 ml/min/1.73 sqM)
--- NOTE | 2019-05-08 07:13 | CT ---
EXAMINATION TYPE: CT urogram wo/w con DATE OF EXAM: 05/07/2019 HISTORY: Hematuria. CT DLP: 2243.5mGycm Automated Exposure Control for Dose Reduction was Utilized. CONTRAST: CT scan of the abdomen and pelvis is performed without oral but without and with IV Contrast, patient injected with 100ml mL of Isovue 370. Urogram protocol with 3-D reconstruction images created by [employer] and reviewed. COMPARISON: CT abdomen and pelvis December 10, 2016 FINDINGS: KUB: Noncontrast images show no renal calculi bilaterally. Postcontrast images show symmetric cortico medullary uptake and excretion from both kidneys without evidence of concerning solid or cystic renal mass or hydronephrosis seen bilaterally. There is satisfactory opacification of the bilateral ureter s without suspicious dilatation or defect. Bladder is satisfactorily distended without intraluminal m ass or wall thickening. LUNG BASES: Stable chronic masslike consolidation posterior right lung base axial image 11 adjacent t o calcified pleural plaque. Additional right-sided calcified pleural plaques redemonstrated. Moderate to severe three-vessel Coronary artery calcification and/or stents. Correlate clinically. LIVER/GB: Cholecystectomy clips are now seen. PANCREAS: No significant abnormality is seen. SPLEEN: No significant abnormality is seen. ADRENALS: No significant abnormality is seen. KIDNEYS: No significant abnormality is seen. BOWEL: Incidental normal-appearing appendix from cecum in the right upper pelvis. UTERUS/ADNEXA: Anteverted partially calcified uterus consistent with calcified fibroids redemonstrate d. LYMPH NODES: No greater than 1cm abdominal or pelvic lymph nodes are appreciated. OSSEOUS STRUCTURES: Moderate axial joint space loss of both hip joints. Levoconvex scoliosis centered at L2 level. Moderate multilevel spurring and vacuum disc phenomenon along with disc space narrowing L2-L3 and L3-L4 levels. Posterior disc herniation L4-L5 level effaces anterior thecal sac. OTHER: Moderate calcified plaque abdominal aorta extends into the iliac branch vessels. IMPRESSION: 1. No significant finding is seen to account for patient's clinical symptoms of hematuria.
== END | disposition home or self-care (01) ==
LOC: RADCTMAIN 16:25
PROVIDERS: ATTEND Urology
DX: R31.0 Gross hematuria (principal)
CPT/HCPCS: 82565; 84520; 74178; 36415; 74400; Q9967

== ENCOUNTER → 2020-01-31 | Outpatient (CLI) | payer MEDICARE, BC ==
--- NOTE | 2020-01-31 18:49 | CT ---
EXAMINATION TYPE: CT angio neck DATE OF EXAM: 01/31/2020 HISTORY: CAROTID STENOSIS COMPARISON: None CT DLP: 270.1 mGycm. Automated Exposure Control for Dose Reduction was Utilized. TECHNIQUE: CTA scan of the neck is performed with IV Contrast, patient injected with 65 mL of Isovue 370, axial images are obtained, coronal and sagittal reformatted images are reviewed. Three-D recons tructed images are created on an independent workstation and reviewed. Source images are reviewed. FINDINGS: Carotid/Vascular Structures: There is a three-vessel arch. Vertebral arteries are codominant. There i s atheromatous plaquing at the bilateral carotid bifurcations. There is at least a 62% stenosis withi n the proximal right internal carotid artery. And a 61% stenosis within the left proximal internal ca rotid artery. Other: Portion of the thyroid visualized is normal. Lung apices appear clear. IMPRESSION: 1. Moderate stenosis of the bilateral internal carotid arteries between 50 and 69% each side. Correla te with the patient's symptoms. 2.
== END | disposition home or self-care (01) ==
LOC: RADCTMAIN 11:41
PROVIDERS: ATTEND Internal Medicine Clinical Cardiac Electrophysiology
DX: I65.23 Occlusion and stenosis of bilateral carotid arteries (principal); I65.8 Occlusion and stenosis of other precerebral arteries
CPT/HCPCS: 82565; 84520; 70498; 36415; Q9967

== ENCOUNTER → 2020-05-27 | Outpatient (CLI) | payer MEDICARE, BC ==
--- NOTE | 2020-05-27 14:04 | CT ---
EXAMINATION TYPE: CT chest wo con DATE OF EXAM: 05/27/2020 COMPARISON: 10/22/2016 HISTORY: cough, SOB, lung mass CT DLP: 642 mGycm. Automated Exposure Control for Dose Reduction was Utilized. TECHNIQUE: CT scan of the thorax is performed without IV contrast. FINDINGS: LUNGS: Mild apical pleural thickening is present bilaterally. There is calcified pleural plaques medi ally and inferiorly and posteriorly in the right lower lung. Adjacent to posterior plaque there is ma sslike consolidation measuring 4.8 x 1.9 cm and previously measuring 4.7 x 1.8 cm \with broad-based p leural component. . MEDIASTINUM: Lack of IV contrast is noted to limit evaluation for mediastinal and especially hilar ad enopathy. There are no definitive greater than 1 cm hilar or mediastinal lymph nodes. Coronary kamari ry calcification is present which is noted marker for coronary artery disease. There is moderate athe rosclerotic change of aorta extending into branch vessels. Multiple shoddy lymph nodes seen in the me diastinum OTHER: Hypertrophic and degenerative change of the spine. Postcholecystectomy changes noted. IMPRESSION: 1. Minimal interval increase in size of the pleural-based mass within the right lower lobe. Currently measures 4.8 x 1.9 cm and previously measured 4.7 x 1.8 cm. Extensive pleural plaquing calcification s correlate for is best is related disease. 2. Dense coronary artery calcification correlate clinically.
== END | disposition home or self-care (01) ==
LOC: RADCTMAIN 13:18
PROVIDERS: ATTEND Family Medicine
DX: I25.10 Atherosclerotic heart disease of native coronary artery without angina pectoris (principal); R22.2 Localized swelling, mass and lump, trunk
CPT/HCPCS: 71250

== ENCOUNTER 2020-09-16 07:38 | Day surgery (SDC) | payer MEDICARE, BC ==
[2020-09-10 16:23] VITALS: BMI 27.4
[~2020-09-16 07:38] MED LIST changes: +ALPRAZolam 0.25 MG TAB PO PRN; +ALPRAZolam 0.5 MG TAB PO PRN; +ASPIRIN 325 MG TAB PO STA; +ATORVASTATIN 80 MG TAB PO STA; +NITROGLYCERIN SL TABS 0.4 MG TAB SUBLINGUAL PRN; +SODIUM CHLORIDE 0.9% 1,000 ML in EMPTY BAG 1 BAG IV ONE; -ceFAZolin IN SWFI 2 GM/20 ML SYRINGE IVP ONE
[2020-09-16 08:03] VITALS: RESP 16; TEMP 98.1
[2020-09-16] MEDS ORDERED: MIDAZOLAM 2 MG/2 ML VIAL IV ONE ×2 (09:13)
[2020-09-16] MEDS ORDERED: LIDOCAINE 1% INJ 10MG/ML (20 ML MDV) SQ ONE ×2 (09:18→09:19)
[2020-09-16] MEDS: VERAPAMIL SYRINGE (5 MG/10 ML) INTRAARTER ONE ×2 (09:22→10:05)
[2020-09-16] MEDS: HEPARIN SODIUM 1,000 UN/ML (10ML VL) IV ONE ×2 (09:24→09:40)
[2020-09-16] MEDS ORDERED: IOPAMIDOL-370 100ML BTL INJ ONE ×2 (09:43→10:28)
[2020-09-16] MEDS ORDERED: NITROGLYCERIN 1000MCG/10ML SYRINGE INTRACORON ONE ×2 (10:19)
[2020-09-16] MEDS ORDERED: CLOPIDOGREL 75 MG TAB PO ONE (10:28)
[2020-09-16] MEDS ORDERED: SODIUM CHLORIDE 0.9% 1,000 ML IV SCH (10:45)
[2020-09-16 15:30] VITALS: BP 119/60; PULSE 70
--- NOTE | 2020-09-16 16:13 | CC ---
CARDIAC CATHETERIZATION REPORT DATE OF SERVICE: 09/16/2020 PROCEDURES: 1. Left heart catheterization and coronary angiography. 2. Percutaneous transluminal coronary angioplasty and stenting of ostial lesion of dominant right coronary artery with a drug-eluting stent. PERFORMED BY: Dr. Jose A Motta. Moderate conscious sedation time was 71 minutes. Patient was administered Versed. Oxygen saturation, hemodynamics and EKG were monitored closely. CLINICAL INFORMATION: Mrs. Kasie Thomas is a 79-year-old lady with a known history of CAD. I performed stenting of her proximal LAD in July and October of 2007 with Taxus drug-eluting stents. Since then she has done remarkably well, without symptoms, but of late she has been having symptoms of angina. Given her background story and significant risk factors of hypertension and hyperlipidemia, she was advised cardiac cath after due discussion regarding risks, benefits and options. The patient sees Dr. Mancia in the outpatient setting and he made the recommendation for cardiac cath after due discussion. The patient also has peripheral artery disease with known occlusion of superficial femoral artery of the right side. PROCEDURE NOTE: Under local anesthesia and strict aseptic precautions, a 6-Upper Sorbian introducer was placed in the right radial artery. Using JL3.5 and JR4 catheters, I performed selective coronary angiography, and the same right catheter was used to check LV pressures, but LV gram was not performed. I then made a decision to proceed with PCI of RCA ostium, which was a significant lesion. The lesion was located just after the ostium in the proximal portion and it was about 80%. Following the procedure, I took the sheath out and placed a TR band with the saturation in the fingers of the right hand about 93%. Patient tolerated procedure well without complications. Results were discussed with the patient as well as her son. CARDIAC CATHETERIZATION FINDINGS: The left ventricular end-diastolic pressure was about 10 mmHg without any gradient across the aortic valve. CORONARY ANGIOGRAPHY FINDINGS: RIGHT CORONARY ARTERY: This is technically a dominant vessel that has an ostial lesion of about 80%. The lesion involves the proximal portion as well. Ostium is probably not as critical as the proximal portion, which is at least 80% in multiple views. Beyond the ostium, the RCA is of good caliber and distribution. It bifurcates into smaller PLV and larger PDA, both of which supply a sizable amount of myocardium. RCA therefore is a dominant vessel with the proximal lesion of about 80% just after the ostium of the vessel and also involves the ostium to some extent. Distally there is no significant disease and PDA is larger than PLV. LEFT MAIN CORONARY ARTERY: Short patent vessel, free of significant disease. It bifurcates into LAD and circumflex. LEFT ANTERIOR DESCENDING CORONARY ARTERY: This vessel was stented in 2007. The stented area in the proximal LAD is widely patent with no more than 30% to 35% narrowing. Flow is brisk. Entire LAD beyond that has no significant disease, has minor irregularities, tortuous and runs all the way to the apex, giving off 2 diagonal branches and several septal branches. LEFT POSTERIOR CIRCUMFLEX CORONARY ARTERY: Technically nondominant vessel, gives off a good-sized obtuse marginal, then runs in the AV groove. A sizable amount of myocardium is supplied by the circumflex system, which has minor irregularities of 30% to 35% but no significant disease. LEFT VENTRICULOGRAM: Not performed. FINAL IMPRESSION: This patient has a widely patent LAD at the site of previous stenting. Circumflex is nondominant, free of significant disease. LAD is widely patent. Normal filling pressures. No gradient. Proximal RCA has about an 80% narrowing which also involves the ostium to some extent. RCA is dominant. RECOMMENDATIONS: I advised PCI of proximal RCA and performed this in the same setting. PCI PROCEDURE DETAILS: Patient was administered heparin of about 5500 units and her ACT was 279. I used initially a right Ayala catheter without success. I tried an AR1 without success. After some deliberation, I tried a Damian catheter also. I could not get a good seating in the right coronary artery. Eventually an Amplatz 0.75 curved left catheter was used. With this I was able to get decent seating. The lesion was crossed with an 0.014 run- through wire. Predilatation was performed with a 2.5 caliber 12 mm NC Trek balloon. I then deployed an 8 mm long 3.25 caliber Xience stent at 13 atmospheres. Patient had chest pain and inferior ST elevation. Excellent angiographic result was achieved without complication. The wire was taken out. The sheath was taken out. Patient was sent to the extended-stay unit in stable condition. Results were discussed with the patient and family. I expect she will be discharged later today and will see Dr. Mancia in one week. Excellent angiographic result without complication was achieved. MMODL / LUKAS: [id number] /
== END 2020-09-16 17:02 | disposition home or self-care (01) ==
LOC: CATHCVL 07:38
PROVIDERS: ATTEND Internal Medicine Interventional Cardiology
DX: I25.110 Atherosclerotic heart disease of native coronary artery with unstable angina pectoris (principal); I10 Essential (primary) hypertension; I77.1 Stricture of artery; I65.23 Occlusion and stenosis of bilateral carotid arteries; E78.00 Pure hypercholesterolemia, unspecified; Z95.5 Presence of coronary angioplasty implant and graft; E78.5 Hyperlipidemia, unspecified; Z72.0 Tobacco use; Z79.02 Long term (current) use of antithrombotics/antiplatelets; Z79.82 Long term (current) use of aspirin; Z79.899 Other long term (current) drug therapy; Z88.1 Allergy status to other antibiotic agents; Z88.2 Allergy status to sulfonamides
CPT/HCPCS: 93458; 87635; C9600; C1887 ×3; C1894; C1725; C1769; C1874; J2250; J2001; J1644; Q9967

== ENCOUNTER 2021-08-01 07:54 | Emergency (ER) | payer MEDICARE, BC ==
[2021-08-01 08:22] LABS: Glucose,Whole Blood 225 mg/dL (75-99)
[2021-08-01] MEDS ORDERED: SODIUM CHLORIDE 0.9% 500 ML 500 ML IV ONE (08:25)
[2021-08-01 08:38] LABS: Basophils # (A) 0.1 k/uL (0-0.2); Basophils % (A) 1 %; Eosinophils # (A) 0.4 k/uL (0-0.7); Eosinophils % (A) 4 %; HCT 36.6 % (34.0-46.0); HGB 12.3 gm/dL (11.4-16.0); Lymphocytes # (A) 1.5 k/uL (1.0-4.8); Lymphocytes % (A) 16 %; MCH 32.6 pg (25.0-35.0); MCHC 33.6 g/dL (31.0-37.0); Mean Platelet Volume 7.8; Monocytes # (A) 0.4 k/uL (0-1.0); Monocytes % (A) 5 %; Neutrophils # (A) 6.5 k/uL (1.3-7.7); Neutrophils % (A) 73 %; Platelet Count 206 k/uL (150-450); RBC 3.78 m/uL (3.80-5.40); RDW 12.4 % (11.5-15.5)
[2021-08-01 08:52] LABS: Albumin 3.9 g/dL (3.5-5.0); Calcium 10.4 mg/dL (8.4-10.2); Magnesium 1.7 mg/dL (1.6-2.3); Potassium 4.5 mmol/L (3.5-5.1); Total Bilirubin 1.7 mg/dL (0.2-1.3); Total Protein 6.8 g/dL (6.3-8.2)
[2021-08-01 09:52] LABS: Appearance,Urine Clear (Clear); Bilirubin,Urine Negative (Negative); Blood,Urine Negative (Negative); Color,Urine Light Yellow; Glucose,Urine (UA) 2+ (Negative); Ketones,Urine Negative (Negative); Leukocyte Esterase,Urine Negative (Negative); Nitrite,Urine Negative (Negative); Protein,Urine Negative (Negative); Specific Gravity,Urine 1.011 (1.001-1.035); Urobilinogen,Urine <2.0 mg/dL (<2.0)
--- NOTE | 2021-08-01 10:14 | ED ---
General Adult HPI - General Chief complaint: Recheck/Abnormal Lab/Rx Stated complaint: high blood sugar Time Seen by Provider: 08/01/21 08:02 Source: patient, RN notes reviewed Mode of arrival: wheelchair Limitations: no limitations - History of Present Illness Initial comments: This is 80-year-old female presents emergency Department with chief complaint of hyperglycemia. 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 She states that she started putting symptoms together that she may have been having for a while. She states occasionally she gets dizzy acute and she was nauseated she states that she urinates quite frequently though she blames on her diuretic. Patient denies abdominal pain no chest pain or short breath no other complaints. - Related Data Home Medications Medication Instructions Recorded Confirmed Aspirin [Adult Low Dose Aspirin EC] 81 mg PO HS 06/17/16 09/16/20 Atorvastatin [Lipitor] 80 mg PO HS 06/17/16 09/16/20 Cholecalciferol [Vitamin D3 (25 2,000 units PO DAILY 06/17/16 09/16/20 Mcg = 1000 Iu)] Nitroglycerin Sl Tabs [Nitrostat] 0.4 mg SUBLINGUAL DIRECTED PRN 06/17/16 09/10/20 atenoloL [Tenormin] 50 mg PO BID 06/17/16 09/16/20 Clopidogrel Bisulfate [Plavix] 75 mg PO HS 10/02/16 09/16/20 Estrogens, Conjugated Cream 1 applicator VAGINAL DIRECTED 09/10/20 09/16/20 [Premarin Cream] Multivitamins, Thera [Multivitamin 1 tab PO DAILY 09/10/20 09/16/20 (formulary)] Triamterene/Hydrochlorothiazid 1 each PO DAILY 09/10/20 09/16/20 [Triamterene-Hctz 37.5-25 mg Tb] Valsartan [Diovan] 320 mg PO 1400 09/10/20 09/16/20 Vitamin C/Biotin [Hair, Skin and 2 tab PO DAILY 09/10/20 09/16/20 Nails] amLODIPine [Norvasc] 5 mg PO 1500 09/10/20 09/16/20 Allergies Allergy/AdvReac Type Severity Reaction Status Date / Time latex Allergy Rash/Hives Verified 08/01/21 08:00 minocycline AdvReac Nausea & Verified 08/01/21 08:00 Vomiting & Diarrhea sulfamethoxazole AdvReac Nausea & Verified 08/01/21 08:00 [From Bactrim] Vomiting & Diarrhea trimethoprim [From Bactrim] AdvReac Nausea & Verified 08/01/21 08:00 Vomiting & Diarrhea Review of Systems ROS Statement: Those systems with pertinent positive or pertinent negative responses have been documented in the HPI. ROS Other: All systems not noted in ROS Statement are negative. Past Medical History Past Medical History: Atrial Fibrillation, Coronary Artery Disease (CAD), Chest Pain / Angina, Hypertension, Osteoarthritis (OA) Additional Past Medical History / Comment(s): hx varicose veins, lower lobe of lung "collapsed", swelling lt ankle History of Any Multi-Drug Resistant Organisms: MRSA Date of last positivie culture/infection: 11/18/16 MDRO Source:: Head Past Surgical History: Breast Surgery, Cholecystectomy, Heart Catheterization With Stent, Tubal Ligation Additional Past Surgical History / Comment(s): two cardiac stents, rt breast lumpectomy Past Anesthesia/Blood Transfusion Reactions: Motion Sickness, Postoperative Nausea & Vomiting (PONV) Date of Last Stent Placement:: 10/2007 Past Psychological History: No Psychological Hx Reported Smoking Status: Former smoker - Past Family History Mother Family Medical History: No Reported History Brother(s) Family Medical History: Cancer General Exam Limitations: no limitations General appearance: alert, in no apparent distress Head exam: Present: atraumatic, normocephalic, normal inspection Eye exam: Present: normal appearance, PERRL, EOMI. Absent: scleral icterus, conjunctival injection, periorbital swelling ENT exam: Present: normal exam, normal oropharynx, mucous membranes moist Neck exam: Present: normal inspection, full ROM. Absent: tenderness, meningismus, lymphadenopathy Respiratory exam: Present: normal lung sounds bilaterally. Absent: respiratory distress, wheezes, rales, rhonchi, stridor Cardiovascular Exam: Present: regular rate, normal rhythm, normal heart sounds. Absent: systolic murmur, diastolic murmur, rubs, gallop, clicks GI/Abdominal exam: Present: soft, normal bowel sounds. Absent: distended, tenderness, guarding, rebound, rigid Course Vital Signs 08/01/21 08/01/21 08/01/21 07:55 09:07 10:37 Temperature 97.3 F L 98.1 F Pulse Rate 77 69 73 Respiratory 18 16 18 Rate Blood Pressure 136/59 119/84 112/59 O2 Sat by Pulse 97 97 98 Oximetry Medical Decision Making - Medical Decision Making Patient has mild hyperglycemia which is a fasting blood glucose at this time. She is advised dietary changes, was given mild fluid bolus, will follow-up with PCP for medication direction she is return for any worsening change in symptoms. - Lab Data Result diagrams: 08/01/21 08:31 08/01/21 08:31 Lab Results 08/01/21 08/01/21 08/01/21 Range/Units 08:21 08:31 08:31 WBC 9.0 (3.8-10.6) k/uL RBC 3.78 L (3.80-5.40) m/uL Hgb 12.3 (11.4-16.0) gm/dL Hct 36.6 (34.0-46.0) % MCV 97.0 (80.0-100.0) fL MCH 32.6 (25.0-35.0) pg MCHC 33.6 (31.0-37.0) g/dL RDW 12.4 (11.5-15.5) % Plt Count 206 (150-450) k/uL MPV 7.8 Neutrophils % 73 % Lymphocytes % 16 % Monocytes % 5 % Eosinophils % 4 % Basophils % 1 % Neutrophils # 6.5 (1.3-7.7) k/uL Lymphocytes # 1.5 (1.0-4.8) k/uL Monocytes # 0.4 (0-1.0) k/uL Eosinophils # 0.4 (0-0.7) k/uL Basophils # 0.1 (0-0.2) k/uL Sodium 132 L (137-145) mmol/L Potassium 4.5 (3.5-5.1) mmol/L Chloride 102 (98-107) mmol/L Carbon Dioxide 25 (22-30) mmol/L Anion Gap 5 mmol/L BUN 37 H (7-17) mg/dL Creatinine 1.14 H (0.52-1.04) mg/dL Est GFR (CKD-EPI)AfAm 54 (>60 ml/min/1.73 sqM) Est GFR (CKD-EPI)NonAf 46 (>60 ml/min/1.73 sqM) Glucose 231 H (74-99) mg/dL POC Glucose (mg/dL) 225 H (75-99) mg/dL POC Glu Broommaking Supervisor ID Swati Rodriguez Calcium 10.4 H (8.4-10.2) mg/dL Magnesium 1.7 (1.6-2.3) mg/dL Total Bilirubin 1.7 H (0.2-1.3) mg/dL AST 24 (14-36) U/L ALT 22 (4-34) U/L Alkaline Phosphatase 81 (38-126) U/L Total Protein 6.8 (6.3-8.2) g/dL Albumin 3.9 (3.5-5.0) g/dL Urine Color Urine Appearance (Clear) Urine pH (5.0-8.0) Ur Specific [place] (1.001-1.035) Urine Protein (Negative) Urine Glucose (UA) (Negative) Urine Ketones (Negative) Urine Blood (Negative) Urine Nitrite (Negative) Urine Bilirubin (Negative) Urine Urobilinogen (<2.0) mg/dL Ur Leukocyte Esterase (Negative) 08/01/21 Range/Units 09:42 WBC (3.8-10.6) k/uL RBC (3.80-5.40) m/uL Hgb (11.4-16.0) gm/dL Hct (34.0-46.0) % MCV (80.0-100.0) fL MCH (25.0-35.0) pg MCHC (31.0-37.0) g/dL RDW (11.5-15.5) % Plt Count (150-450) k/uL MPV Neutrophils % % Lymphocytes % % Monocytes % % Eosinophils % % Basophils % % Neutrophils # (1.3-7.7) k/uL Lymphocytes # (1.0-4.8) k/uL Monocytes # (0-1.0) k/uL Eosinophils # (0-0.7) k/uL Basophils # (0-0.2) k/uL Sodium (137-145) mmol/L Potassium (3.5-5.1) mmol/L Chloride (98-107) mmol/L Carbon Dioxide (22-30) mmol/L Anion Gap mmol/L BUN (7-17) mg/dL Creatinine (0.52-1.04) mg/dL Est GFR (CKD-EPI)AfAm (>60 ml/min/1.73 sqM) Est GFR (CKD-EPI)NonAf (>60 ml/min/1.73 sqM) Glucose (74-99) mg/dL POC Glucose (mg/dL) (75-99) mg/dL POC Glu Broommaking Supervisor ID Calcium (8.4-10.2) mg/dL Magnesium (1.6-2.3) mg/dL Total Bilirubin (0.2-1.3) mg/dL AST (14-36) U/L ALT (4-34) U/L Alkaline Phosphatase (38-126) U/L Total Protein (6.3-8.2) g/dL Albumin (3.5-5.0) g/dL Urine Color Light Yellow Urine Appearance Clear (Clear) Urine pH 5.0 (5.0-8.0) Ur Specific [place] 1.011 (1.001-1.035) Urine Protein Negative (Negative) Urine Glucose (UA) 2+ H (Negative) Urine Ketones Negative (Negative) Urine Blood Negative (Negative) Urine Nitrite Negative (Negative) Urine Bilirubin Negative (Negative) Urine Urobilinogen <2.0 (<2.0) mg/dL Ur Leukocyte Esterase Negative (Negative) Disposition Clinical Impression: Hyperglycemia, New onset type 2 diabetes mellitus Disposition: HOME SELF-CARE Condition: Stable Instructions (If sedation given, give patient instructions): Type 2 Diabetes in Adults: New Diagnosis (DC), Basic Carbohydrate Counting (DC) Additional Instructions: Please return to the Emergency Department for any concerns. Is patient prescribed a controlled substance at d/c from ED?: No Referrals: Rg Loo MD [Primary Care Provider] - 1-2 days Time of Disposition: 10:14
[2021-08-01 10:38] VITALS: BP 112/59; PULSE 73; RESP 18; TEMP 98.1
== END 2021-08-01 10:39 | disposition home or self-care (01) ==
LOC: EC 07:54
DX: E11.65 Type 2 diabetes mellitus with hyperglycemia (principal); I48.91 Unspecified atrial fibrillation; I25.10 Atherosclerotic heart disease of native coronary artery without angina pectoris; I10 Essential (primary) hypertension; M19.90 Unspecified osteoarthritis, unspecified site; Z79.82 Long term (current) use of aspirin; Z79.02 Long term (current) use of antithrombotics/antiplatelets; Z88.1 Allergy status to other antibiotic agents; Z88.2 Allergy status to sulfonamides; Z91.040 Latex allergy status; Z90.49 Acquired absence of other specified parts of digestive tract; Z98.51 Tubal ligation status; Z87.891 Personal history of nicotine dependence
CPT/HCPCS: 36415; 80053; 81003; 83735; 85025; 93005; 99285

== ENCOUNTER 2021-09-05 12:05 | Inpatient (IN) | payer MEDICARE, BC ==
[2021-09-05 13:31] LABS: Glucose,Whole Blood 147 mg/dL (75-99)
[2021-09-05] MEDS ORDERED: ONDANSETRON 4 MG/2 ML VIAL IVP STA (13:38)
[2021-09-05] MEDS ORDERED: SODIUM CHLORIDE 0.9% 1,000 ML IV STA (13:38)
[2021-09-05 13:57] LABS: Basophils # (A) 0.1 k/uL (0-0.2); Basophils % (A) 1 %; Eosinophils # (A) 0.1 k/uL (0-0.7); Eosinophils % (A) 2 %; HCT 29.6 % (34.0-46.0); HGB 10.9 gm/dL (11.4-16.0); Hyperchromasia Slight; Lymphocytes # (A) 1.4 k/uL (1.0-4.8); Lymphocytes % (A) 19 %; MCH 33.6 pg (25.0-35.0); MCHC 36.9 g/dL (31.0-37.0); Monocytes # (A) 0.6 k/uL (0-1.0); Monocytes % (A) 7 %; Neutrophils # (A) 5.1 k/uL (1.3-7.7); Neutrophils % (A) 69 %; Platelet Count 322 k/uL (150-450); RBC 3.26 m/uL (3.80-5.40); RDW 11.9 % (11.5-15.5); WBC 7.4 k/uL (3.8-10.6)
[2021-09-05 13:58] LABS: Appearance,Urine Clear (Clear); Bilirubin,Urine Negative (Negative); Blood,Urine Negative (Negative); Color,Urine Light Yellow; Glucose,Urine (UA) 4+ (Negative); Ketones,Urine Negative (Negative); Leukocyte Esterase,Urine Negative (Negative); Nitrite,Urine Negative (Negative); Protein,Urine Negative (Negative); Specific Gravity,Urine 1.015 (1.001-1.035); Urobilinogen,Urine <2.0 mg/dL (<2.0)
[2021-09-05 14:06] LABS: Albumin 4.2 g/dL (3.5-5.0); Calcium 9.4 mg/dL (8.4-10.2); Potassium 4.6 mmol/L (3.5-5.1); Total Bilirubin 2.4 mg/dL (0.2-1.3); Total Protein 6.9 g/dL (6.3-8.2)
--- NOTE | 2021-09-05 14:37 | XR ---
EXAMINATION TYPE: XR KUB DATE OF EXAM: 09/05/2021 COMPARISON: NONE HISTORY: Constipation TECHNIQUE: FINDINGS: There is no sign of intestinal obstruction or pneumoperitoneum. Fecal pattern is fairly nor mal. There is thoracolumbar levoscoliosis. There is some pleural reaction at the right lung base with atelectasis. There are clips from cholecystectomy. Abdominal aorta is atheromatous. IMPRESSION: Nonacute abdomen. Mild pleural reaction and atelectasis right lung base.
[2021-09-05] MEDS ORDERED: ACETAMINOPHEN TAB 325 MG TAB PO STA (14:42)
--- NOTE | 2021-09-05 14:42 | ED ---
Nausea/Vomiting/Diarrhea HPI - General Chief complaint: Nausea/Vomiting/Diarrhea Stated complaint: dehydration Time Seen by Provider: 09/05/21 13:27 Source: patient Mode of arrival: wheelchair Limitations: no limitations - History of Present Illness Initial comments: Patient is a 80 -year-old female with past medical history significant for cholecystectomy, atrial fibrillation on Plavix, hypertension, coronary artery disease with LAD and RCA stenting, PAD, and recently diagnosed type 2 diabetes who presents to the emergency department with a chief complaint of nausea and vomiting. Patient states she has been nauseous for 3 days. Patient had one e pisode of vomiting today, nonbloody. Patient states her stomach does not hurt but does feel upset. She denies fever and chills. She denies chest pain and shortness of breath. Her 2 sons at bedside and help provide history. They state that patient recently started farxiga for her diabetes. Patient states she is checking her sugar at home which has been normal. Patient denies excessive urination or thirst. Patient also reports chronic bilateral aching leg pain that has been bothering her the past few days. She denies leg swelling, and history of DVT and PE. - Related Data Home Medications Medication Instructions Recorded Confirmed Aspirin [Adult Low Dose Aspirin EC] 81 mg PO HS 06/17/16 09/16/20 Atorvastatin [Lipitor] 80 mg PO HS 06/17/16 09/16/20 Cholecalciferol [Vitamin D3 (25 2,000 units PO DAILY 06/17/16 09/16/20 Mcg = 1000 Iu)] Nitroglycerin Sl Tabs [Nitrostat] 0.4 mg SUBLINGUAL DIRECTED PRN 06/17/16 09/10/20 atenoloL [Tenormin] 50 mg PO BID 06/17/16 09/16/20 Clopidogrel Bisulfate [Plavix] 75 mg PO HS 10/02/16 09/16/20 Estrogens, Conjugated Cream 1 applicator VAGINAL DIRECTED 09/10/20 09/16/20 [Premarin Cream] Multivitamins, Thera [Multivitamin 1 tab PO DAILY 09/10/20 09/16/20 (formulary)] Triamterene/Hydrochlorothiazid 1 each PO DAILY 09/10/20 09/16/20 [Triamterene-Hctz 37.5-25 mg Tb] Valsartan [Diovan] 320 mg PO 1400 09/10/20 09/16/20 Vitamin C/Biotin [Hair, Skin and 2 tab PO DAILY 09/10/20 09/16/20 Nails] amLODIPine [Norvasc] 5 mg PO 1500 09/10/20 09/16/20 Allergies Allergy/AdvReac Type Severity Reaction Status Date / Time latex Allergy Rash/Hives Verified 09/05/21 12:09 minocycline AdvReac Nausea & Verified 09/05/21 12:09 Vomiting & Diarrhea sulfamethoxazole AdvReac Nausea & Verified 09/05/21 12:09 [From Bactrim] Vomiting & Diarrhea trimethoprim [From Bactrim] AdvReac Nausea & Verified 09/05/21 12:09 Vomiting & Diarrhea Review of Systems ROS Statement: Those systems with pertinent positive or pertinent negative responses have been documented in the HPI. ROS Other: All systems not noted in ROS Statement are negative. Past Medical History Past Medical History: Atrial Fibrillation, Coronary Artery Disease (CAD), Chest Pain / Angina, Hypertension, Osteoarthritis (OA) Additional Past Medical History / Comment(s): hx varicose veins, lower lobe of lung "collapsed", swelling lt ankle History of Any Multi-Drug Resistant Organisms: MRSA Date of last positivie culture/infection: 11/18/16 MDRO Source:: Head Past Surgical History: Breast Surgery, Cholecystectomy, Heart Catheterization With Stent, Tubal Ligation Additional Past Surgical History / Comment(s): two cardiac stents, rt breast lumpectomy Past Anesthesia/Blood Transfusion Reactions: Motion Sickness, Postoperative Nausea & Vomiting (PONV) Date of Last Stent Placement:: 10/2007 Past Psychological History: No Psychological Hx Reported Smoking Status: Former smoker - Past Family History Mother Family Medical History: No Reported History Brother(s) Family Medical History: Cancer General Exam Limitations: no limitations General appearance: alert, in no apparent distress Head exam: Present: atraumatic, normocephalic, normal inspection Eye exam: Present: normal appearance, PERRL, EOMI. Absent: scleral icterus, conjunctival injection, periorbital swelling ENT exam: Present: normal oropharynx, mucous membranes moist Respiratory exam: Present: normal lung sounds bilaterally. Absent: respiratory distress, wheezes, rales, rhonchi, stridor Cardiovascular Exam: Present: regular rate, normal rhythm, normal heart sounds. Absent: systolic murmur, diastolic murmur, rubs, gallop, clicks GI/Abdominal exam: Present: soft, normal bowel sounds. Absent: distended, tend erness, guarding, rebound, rigid Extremities exam: Present: normal inspection, full ROM, normal capillary refill. Absent: joint swelling, calf tenderness Neurological exam: Present: alert, oriented X3, CN II-XII intact Psychiatric exam: Present: normal affect, normal mood Skin exam: Present: warm, dry, intact, normal color. Absent: rash Course Vital Signs 09/05/21 09/05/21 12:09 15:23 Temperature 97.9 F 98.0 F Pulse Rate 89 87 Respiratory 18 16 Rate Blood Pressure 124/69 137/73 O2 Sat by Pulse 97 100 Oximetry Procedures - [place] Protocol (Time Out) Nurse: Soila English Medical Decision Making - Medical Decision Making This is a 80-year-old female presents with 3 days of nausea with one episode of vomiting today. Thorough history and examination were performed. Patient is well-appearing and in no apparent distress. She is alert and oriented 4. The abdomen is soft and nontender. Patient denies abdominal pain. KUB x-ray was negative for acute process including obstruction. Laboratory studies were obtained which reveal hyponatremia at 116. Case discussed with Dr. German who states patient need nephrology evaluation in the emergency department to determine the need for hypertonic saline and ICU admission. I spoke with Dr. Mas personally. He recommended normal saline bolus until he can see the patient. Urine osmolality and urine sodium was ordered. Dr. Mas did reach out to patient's nurse stating he went to [facility] accidentally. He instructed to repeat sodium level which is 117. He then requested hypertonic saline which patient is currently receiving. Pat ient will need ICU admission. Case discussed with Dr. Brady. Patient will be admitted to the ICU floor for further evaluation and management. Patient verbalizes understanding and is agreeable to admission. Patient was admitted in stable condition. Dr. Hughes is my attending. - Lab Data Result diagrams: 09/05/21 13:49 09/05/21 15:58 Lab Results 09/05/21 09/05/21 09/05/21 Range/Units 13:29 13:48 13:48 WBC (3.8-10.6) k/uL RBC (3.80-5.40) m/uL Hgb (11.4-16.0) gm/dL Hct (34.0-46.0) % MCV (80.0-100.0) fL MCH (25.0-35.0) pg MCHC (31.0-37.0) g/dL RDW (11.5-15.5) % Plt Count (150-450) k/uL MPV Neutrophils % % Lymphocytes % % Monocytes % % Eosinophils % % Basophils % % Neutrophils # (1.3-7.7) k/uL Lymphocytes # (1.0-4.8) k/uL Monocytes # (0-1.0) k/uL Eosinophils # (0-0.7) k/uL Basophils # (0-0.2) k/uL Hyperchromasia Sodium (137-145) mmol/L Potassium (3.5-5.1) mmol/L Chloride (98-107) mmol/L Carbon Dioxide (22-30) mmol/L Anion Gap mmol/L BUN (7-17) mg/dL Creatinine (0.52-1.04) mg/dL Est GFR (CKD-EPI)AfAm (>60 ml/min/1.73 sqM) Est GFR (CKD-EPI)NonAf (>60 ml/min/1.73 sqM) Glucose (74-99) mg/dL POC Glucose (mg/dL) 147 H (75-99) mg/dL POC Glu Fashion Coordinator ID Hillary Majano Calcium (8.4-10.2) mg/dL Total Bilirubin (0.2-1.3) mg/dL AST (14-36) U/L ALT (4-34) U/L Alkaline Phosphatase (38-126) U/L Troponin I (0.000-0.034) ng/mL Total Protein (6.3-8.2) g/dL Albumin (3.5-5.0) g/dL Lipase (23-300) U/L Urine Color Light Yellow Urine Appearance Clear (Clear) Urine pH 5.0 (5.0-8.0) Ur Specific [place] 1.015 (1.001-1.035) Urine Protein Negative (Negative) Urine Glucose (UA) 4+ H (Negative) Urine Ketones Negative (Negative) Urine Blood Negative (Negative) Urine Nitrite Negative (Negative) Urine Bilirubin Negative (Negative) Urine Urobilinogen <2.0 (<2.0) mg/dL Ur Leukocyte Esterase Negative (Negative) Urine Osmolality 443 (50-1400) mosm/kg 09/05/21 09/05/21 09/05/21 Range/Units 13:49 13:49 13:49 WBC 7.4 (3.8-10.6) k/uL RBC 3.26 L (3.80-5.40) m/uL Hgb 10.9 L (11.4-16.0) gm/dL Hct 29.6 L (34.0-46.0) % MCV 91.0 D (80.0-100.0) fL MCH 33.6 (25.0-35.0) pg MCHC 36.9 (31.0-37.0) g/dL RDW 11.9 (11.5-15.5) % Plt Count 322 (150-450) k/uL MPV 7.0 Neutrophils % 69 % Lymphocytes % 19 % Monocytes % 7 % Eosinophils % 2 % Basophils % 1 % Neutrophils # 5.1 (1.3-7.7) k/uL Lymphocytes # 1.4 (1.0-4.8) k/uL Monocytes # 0.6 (0-1.0) k/uL Eosinophils # 0.1 (0-0.7) k/uL Basophils # 0.1 (0-0.2) k/uL Hyperchromasia Slight Sodium 116 L* (137-145) mmol/L Potassium 4.6 (3.5-5.1) mmol/L Chloride 85 L (98-107) mmol/L Carbon Dioxide 22 (22-30) mmol/L Anion Gap 9 mmol/L BUN 34 H (7-17) mg/dL Creatinine 1.24 H (0.52-1.04) mg/dL Est GFR (CKD-EPI)AfAm 48 (>60 ml/min/1.73 sqM) Est GFR (CKD-EPI)NonAf 42 (>60 ml/min/1.73 sqM) Glucose 137 H (74-99) mg/dL POC Glucose (mg/dL) (75-99) mg/dL POC Glu Fashion Coordinator ID Calcium 9.4 (8.4-10.2) mg/dL Total Bilirubin 2.4 H (0.2-1.3) mg/dL AST 32 (14-36) U/L ALT 25 (4-34) U/L Alkaline Phosphatase 53 (38-126) U/L Troponin I 0.013 (0.000-0.034) ng/mL Total Protein 6.9 (6.3-8.2) g/dL Albumin 4.2 (3.5-5.0) g/dL Lipase 324 H (23-300) U/L Urine Color Urine Appearance (Clear) Urine pH (5.0-8.0) Ur Specific [place] (1.001-1.035) Urine Protein (Negative) Urine Glucose (UA) (Negative) Urine Ketones (Negative) Urine Blood (Negative) Urine Nitrite (Negative) Urine Bilirubin (Negative) Urine Urobilinogen (<2.0) mg/dL Ur Leukocyte Esterase (Negative) Urine Osmolality (50-1400) mosm/kg 09/05/21 Range/Units 15:58 WBC (3.8-10.6) k/uL RBC (3.80-5.40) m/uL Hgb (11.4-16.0) gm/dL Hct (34.0-46.0) % MCV (80.0-100.0) fL MCH (25.0-35.0) pg MCHC (31.0-37.0) g/dL RDW (11.5-15.5) % Plt Count (150-450) k/uL MPV Neutrophils % % Lymphocytes % % Monocytes % % Eosinophils % % Basophils % % Neutrophils # (1.3-7.7) k/uL Lymphocytes # (1.0-4.8) k/uL Monocytes # (0-1.0) k/uL Eosinophils # (0-0.7) k/uL Basophils # (0-0.2) k/uL Hyperchromasia Sodium 117 L* (137-145) mmol/L Potassium 4.4 (3.5-5.1) mmol/L Chloride 89 L (98-107) mmol/L Carbon Dioxide 22 (22-30) mmol/L Anion Gap 6 mmol/L BUN (7-17) mg/dL Creatinine (0.52-1.04) mg/dL Est GFR (CKD-EPI)AfAm (>60 ml/min/1.73 sqM) Est GFR (CKD-EPI)NonAf (>60 ml/min/1.73 sqM) Glucose (74-99) mg/dL POC Glucose (mg/dL) (75-99) mg/dL POC Glu Fashion Coordinator ID Calcium (8.4-10.2) mg/dL Total Bilirubin (0.2-1.3) mg/dL AST (14-36) U/L ALT (4-34) U/L Alkaline Phosphatase (38-126) U/L Troponin I (0.000-0.034) ng/mL Total Protein (6.3-8.2) g/dL Albumin (3.5-5.0) g/dL Lipase (23-300) U/L Urine Color Urine Appearance (Clear) Urine pH (5.0-8.0) Ur Specific [place] (1.001-1.035) Urine Protein (Negative) Urine Glucose (UA) (Negative) Urine Ketones (Negative) Urine Blood (Negative) Urine Nitrite (Negative) Urine Bilirubin (Negative) Urine Urobilinogen (<2.0) mg/dL Ur Leukocyte Esterase (Negative) Urine Osmolality (50-1400) mosm/kg Disposition Clinical Impression: Hyponatremia, Nausea & vomiting Disposition: ADMITTED IP TO THIS HOSP Condition: Fair Referrals: Rg Loo MD [Primary Care Provider] - 1-2 days Decision Time: 17:05
[2021-09-05] MEDS ORDERED: SODIUM CHLORIDE 0.9% 1,000 ML IV SCH (15:45)
[2021-09-05 16:24] LABS: Potassium 4.4 mmol/L (3.5-5.1)
[2021-09-05] MEDS ORDERED: HYDROmorphone 0.5 MG/0.5 ML SYRINGE IVP PRN (17:38)
[2021-09-05] MEDS ORDERED: NITROGLYCERIN SL TABS 0.4 MG TAB SUBLINGUAL PRN (17:38)
[2021-09-05] MEDS ORDERED: SODIUM CHLORIDE 3%(HYPERTONIC) 500 ML IV SCH (18:15)
--- NOTE | 2021-09-05 18:35 | XR ---
EXAMINATION TYPE: XR chest 1V portable DATE OF EXAM: 09/05/2021 COMPARISON: 07/01/2021 HISTORY: Short of breath TECHNIQUE: FINDINGS: There is some mild linear density right lung base. Heart size is normal. No heart failure. Left lung is clear. Bony thorax appears intact. IMPRESSION: There is some mild pleural reaction and subsegmental atelectasis right lung base without change.
--- NOTE | 2021-09-05 18:47 | US ---
EXAMINATION TYPE: US venous doppler duplex LE DATE OF EXAM: 09/05/2021 6:37 PM COMPARISON: NONE CLINICAL HISTORY: dvt. pain bilateral legs, worse on the right. patient on Plavix SIDE PERFORMED: Bilateral TECHNIQUE: The lower extremity deep venous system is examined utilizing real time linear array sonog madhavi with graded compression, doppler sonography and color-flow sonography. VESSELS IMAGED: Common Femoral Vein Deep Femoral Vein Greater Saphenous Vein * Femoral Vein Popliteal Vein Small Saphenous Vein * Proximal Calf Veins (* superficial vessels) Right Leg: no evidence of DVT Left Leg: no evidence of DVT IMPRESSION: No evidence of deep vein thrombosis in both legs.
[2021-09-05 18:58] LABS: Glucose,Whole Blood 122 mg/dL (75-99)
[2021-09-05] MEDS: ONDANSETRON 4 MG/2 ML VIAL IVP PRN (18:59)
--- NOTE | 2021-09-05 19:46 | HP ---
HISTORY AND PHYSICAL DATE OF SERVICE: 09/05/2021 CHIEF COMPLAINTS: Nausea, vomiting, leg pain. HISTORY OF PRESENT ILLNESS: This 80-year-old woman with a past medical history of atrial fibrillation, CAD, diabetes mellitus, being followed by Dr. Loo in the outpatient setting, was recently started on Farxiga. The patient is complaining of nausea, vomiting and bilateral leg pain. Patient was found to have sodium of 116. Patient was started on 3% hypertonic saline and the patient will be transferred to ICU for consultation with Dr. German as well as Dr. Mas from Nephrology. There is no history of any fever, rigor, chills. The patient does not have any features of acidosis or ketosis. PAST MEDICAL HISTORY: Atrial fibrillation, CAD, hypertension. MEDICATIONS: Home medications are reviewed. They include Nitrostat, Tenormin. Doses and other medications are reviewed. ALLERGIES: NOTED. THEY INCLUDE LATEX. FAMILY HISTORY: No history of heart disease or strokes in the family. SOCIAL HISTORY: Previous history of smoking. REVIEW OF SYSTEMS: Fourteen-point review of systems negative except as mentioned earlier. PHYSICAL EXAMINATION: Pulse is 87, blood pressure 137/73, respiration 16. HEENT: Conjunctivae normal. NECK: No jugular venous distention. CARDIOVASCULAR: S1, S2 muffled. RESPIRATION: Breath sounds diminished at the bases. A few scattered rhonchi and crackles. ABDOMEN: Soft, nontender. LEGS: Bilaterally some tenderness. Some pain on movement also present. Pulses are diminished. NERVOUS SYSTEM: No focal deficit. LABS: WBC 7.2, hemoglobin 10.9 and sodium is 116. Creatinine is 1.24. ASSESSMENT: 1. Severe hyponatremia. 2. Bilateral leg pain. 3. Atrial fibrillation. 4. Hypertension. 5. History of degenerative joint disease. RECOMMENDATIONS AND DISCUSSION: In this 80-year-old woman who presented with multiple complex medical issues, at this time I recommend continuing the current medications. Continue symptomatic treatment. Otherwise, I would recommend continuing with 3% saline. Monitor sodium closely, and correction of the hyponatremia very cautiously. Otherwise, resume the home medications. Hold off Farxiga. I would also recommend D-dimer and ultrasound of the legs. Symptomatic treatment of the pain. DVT prophylaxis. Overall prognosis guarded because of multiple complex medical issues. Discussed with the patient's family, who understands. Further recommendations to follow. A copy of this dictation is being forwarded to Dr. Loo, who is the primary physician. MMODL / IJN: [id number] /
[2021-09-05] MEDS: PANTOPRAZOLE 40 MG/10 ML VIAL IVP SCH (20:56)
[2021-09-05] MEDS: HEPARIN SODIUM,PORCINE/PF 5,000 UNIT/0.5 ML SYRINGE SQ SCH (20:56)
[2021-09-05] MEDS: amLODIPine 2.5 MG TAB PO SCH (20:57)
[2021-09-05] MEDS: atenoloL 25 MG TAB PO SCH (20:57)
[2021-09-05] MEDS: CLOPIDOGREL 75 MG TAB PO SCH (20:57)
[2021-09-05] MEDS: ATORVASTATIN 80 MG TAB PO SCH (20:57)
[2021-09-05 21:09] LABS: Glucose,Whole Blood 122 mg/dL (75-99)
[2021-09-05 21:44] LABS: Potassium 4.2 mmol/L (3.5-5.1)
[2021-09-05 23:24] LABS: Glucose,Whole Blood 113 mg/dL (75-99)
[2021-09-06] MEDS: HYDROcodone/APAP 5-325MG 1 EACH TAB PO PRN ×2 (02:47→09:11)
[2021-09-06] MEDS: ONDANSETRON 4 MG/2 ML VIAL IVP PRN ×2 (02:48→13:27)
[2021-09-06 04:18] LABS: Basophils % (A) 1 %; Eosinophils # (A) 0.1 k/uL (0-0.7); Eosinophils % (A) 1 %; HCT 26.7 % (34.0-46.0); HGB 9.5 gm/dL (11.4-16.0); Lymphocytes # (A) 1.1 k/uL (1.0-4.8); Lymphocytes % (A) 17 %; MCH 33.2 pg (25.0-35.0); MCHC 35.7 g/dL (31.0-37.0); MCV 93.1 fL (80.0-100.0); Mean Platelet Volume 6.9; Monocytes # (A) 0.4 k/uL (0-1.0); Monocytes % (A) 6 %; Neutrophils # (A) 4.5 k/uL (1.3-7.7); Neutrophils % (A) 73 %; Platelet Count 241 k/uL (150-450); RBC 2.87 m/uL (3.80-5.40); RDW 12.2 % (11.5-15.5); WBC 6.2 k/uL (3.8-10.6)
[2021-09-06 04:27] LABS: Calcium 8.3 mg/dL (8.4-10.2); Potassium 4.1 mmol/L (3.5-5.1)
[2021-09-06 06:46] LABS: Glucose,Whole Blood 93 mg/dL (75-99)
[2021-09-06] MEDS: EZETIMIBE 10 MG TAB PO SCH (08:21)
[2021-09-06] MEDS: PANTOPRAZOLE 40 MG/10 ML VIAL IVP SCH ×2 (08:21→21:41)
[2021-09-06] MEDS: amLODIPine 2.5 MG TAB PO SCH ×2 (08:21→21:45)
[2021-09-06] MEDS: atenoloL 25 MG TAB PO SCH ×2 (08:21→21:41)
[2021-09-06] MEDS: HEPARIN SODIUM,PORCINE/PF 5,000 UNIT/0.5 ML SYRINGE SQ SCH ×2 (08:21→21:41)
[2021-09-06] MEDS: ASPIRIN 81 MG PO SCH (08:21)
--- NOTE | 2021-09-06 11:40 | P.CNPUL ---
History of Present Illness Consult date: 09/06/21 Requesting physician: Jose Brady Reason for consult: other (Critical care management) Chief complaint: Nausea vomiting weakness History of present illness: This is a very pleasant 80-year-old female patient with a known history of hypertension, hyperlipidemia, diabetes mellitus, atrial fibrillation, coronary artery disease with previous stent placement, former smoker. She presented to the emergency room yesterday with complaints of nausea vomiting generalized weakness for 3 days prior. She had recently started Farxiga for her diabetes but states her sugars at home were normal. No excessive urination. No excessive thirst. He is found to have significant hyponatremia with a presenti ng sodium of 119. She was initiated on 3% normal saline at 25 ML's per hour and admitted to the intensive care unit. She is seen today in rotation. She is sitting up in bed. Awake and alert in no acute distress. Feeling a bit better today compared to yesterday. Her's sodium is improved to 125. She is on room air. Chest x-ray was within normal limits. White count 6.2. Hemoglobin 9.5. Platelets 241. Potassium 4.1. Chloride 94. Bicarb 20. BUN 26. Creatinine 1.13. Glucose 138. Porter virus by PCR not detected. Urinalysis with 4+ glucose, less than 20 urine random sodium. Nephrology is consulted. Dopplers of the lower extremities negative for DVT. Review of Systems REVIEW OF SYSTEMS: CONSTITUTIONAL: Generalized weakness. Denies any recent significant weight loss or weight gain. EYES: Denies change in vision. EARS, NOSE, MOUTH, THROAT: Denies headaches, denies sore throat. CARDIOVASCULAR: Denies chest pain, palpitations or syncopal episodes. RESPIRATORY: Denies shortness of breath, cough, congestion or hemoptysis. GASTROINTESTINAL: Nausea, vomiting. GENITOURINARY: Denies hematuria, denies infections. MUSKULOSKELETAL: Denies pain, denies swelling. INTEGUMENTARY: Denies rash, denies eczema. NEUROLOGICAL: Denies recent memory loss, no recent seizure activity. PSYCHIATRIC: Denies anxiety, denies depression. HEMATOLOGIC/LYMPHATIC: Denies anemia, denies enlarged lymph nodes. Past Medical History Past Medical History: Atrial Fibrillation, Coronary Artery Disease (CAD), Chest Pain / Angina, Hypertension, Osteoarthritis (OA) Additional Past Medical History / Comment(s): hx varicose veins, lower lobe of lung "collapsed", swelling lt ankle History of Any Multi-Drug Resistant Organisms: MRSA Date of last positivie culture/infection: 11/18/16 MDRO Source:: Head Past Surgical History: Breast Surgery, Cholecystectomy, Heart Catheterization With Stent, Tubal Ligation Additional Past Surgical History / Comment(s): three cardiac stents, rt breast lumpectomy Past Anesthesia/Blood Transfusion Reactions: Motion Sickness, Postoperative Nausea & Vomiting (PONV) Date of Last Stent Placement:: 2020 Past Psychological History: No Psychological Hx Reported Smoking Status: Former smoker Past Alcohol Use History: None Reported Additional Past Alcohol Use History / Comment(s): quit smoking 2003, smoked for 40 yrs, 1 PPD Past Drug Use History: None Reported - Past Family History Mother Family Medical History: No Reported History Brother(s) Family Medical History: Cancer Medications and Allergies Home Medications Medication Instructions Recorded Confirmed Type Aspirin [Adult Low Dose Aspirin EC] 81 mg PO DAILY 06/17/16 09/05/21 History Atorvastatin [Lipitor] 80 mg PO HS 06/17/16 09/05/21 History Nitroglycerin Sl Tabs [Nitrostat] 0.4 mg SUBLINGUAL Q5M PRN 06/17/16 09/05/21 History atenoloL [Tenormin] 25 mg PO BID 06/17/16 09/05/21 History Clopidogrel Bisulfate [Plavix] 75 mg PO HS 10/02/16 09/05/21 History amLODIPine [Norvasc] 2.5 mg PO BID 09/10/20 09/05/21 History Dapagliflozin Propanediol [Farxiga] 10 mg PO DAILY 09/05/21 09/05/21 History Ezetimibe [Zetia] 10 mg PO DAILY 09/05/21 09/05/21 History Yupelri 175mcg/3ml Loren 175 mg INHALATION RT-DAILY 09/05/21 09/05/21 History Allergies Allergy/AdvReac Type Severity Reaction Status Date / Time latex Allergy Rash/Hives Verified 09/05/21 17:16 minocycline AdvReac Nausea & Verified 09/05/21 17:16 Vomiting & Diarrhea sulfamethoxazole AdvReac Nausea & Verified 09/05/21 17:16 [From Bactrim] Vomiting & Diarrhea trimethoprim [From Bactrim] AdvReac Nausea & Verified 09/05/21 17:16 Vomiting & Diarrhea Physical Exam Vitals: Vital Signs Temp Pulse Resp BP Pulse Ox 09/06/21 11:00 73 11 L 89/59 94 L 09/06/21 10:00 74 14 106/49 96 09/06/21 09:00 79 12 95/50 97 09/06/21 08:00 97 F L 73 11 L 109/54 98 09/06/21 07:00 76 12 109/54 98 09/06/21 06:00 72 12 78/41 98 09/06/21 05:00 75 16 91/63 97 09/06/21 04:00 97.7 F 70 16 103/72 97 09/06/21 03:00 78 12 112/57 97 09/06/21 02:00 73 10 L 98/52 97 09/06/21 01:00 79 12 116/56 99 09/06/21 00:00 97.7 F 76 14 116/56 96 09/05/21 23:06 75 12 97/47 97 09/05/21 23:00 73 11 L 127/50 97 09/05/21 22:00 83 18 113/52 97 09/05/21 21:00 85 12 143/58 99 09/05/21 20:00 98.0 F 87 13 143/58 98 09/05/21 19:00 89 21 143/58 99 09/05/21 18:55 97.7 F 85 14 97 09/05/21 15:23 98.0 F 87 16 137/73 100 09/05/21 12:09 97.9 F 89 18 124/69 97 Intake and Output 09/05/21 09/06/21 09/06/21 22:59 06:59 14:59 Intake Total 75 200 125 Balance 75 200 125 Intake: IV 75 200 125 Sodium Chloride 3%( 75 200 125 Hypertonic) 500 ml @ 25 mls/hr IV .Q20H [facility] Rx#: [id number] Other: Voiding Method Toilet Toilet Toilet # Voids 0 0 1 Weight 77.111 kg 78.9 kg GENERAL EXAM: Alert, very pleasant 80-year-old female, on room air, comfortable in no apparent distress. HEAD: Normocephalic. EYES: Normal reaction of pupils, equal size. NOSE: Clear with pink turbinates. THROAT: No erythema or exudates. NECK: No masses, no JVD. CHEST: No chest wall deformity. LUNGS: Equal air entry with no crackles, wheeze, rhonchi or dullness. CVS: S1 and S2 normal with no audible murmur, regular rhythm. ABDOMEN: No hepatosplenomegaly, normal bowel sounds, no guarding or rigidity. SPINE: No scoliosis or deformity SKIN: No rashes CENTRAL NERVOUS SYSTEM: No focal deficits, tone is normal in all 4 extremities. EXTREMITIES: There is no peripheral edema. No clubbing, no cyanosis. Perip heral pulses are intact. Results - Laboratory Findings CBC and BMP: 09/06/21 03:43 09/06/21 10:10 PT/INR, D-dimer D-Dimer 0.19 mg/L FEU (<0.60) 09/05/21 17:57 Abnormal lab findings: Abnormal Labs 09/05/21 09/05/21 09/05/21 13:29 13:48 13:48 RBC Hgb Hct Sodium Chloride Carbon Dioxide BUN Creatinine Glucose POC Glucose (mg/dL) 147 H Calcium Total Bilirubin Creatine Kinase Lipase Urine Glucose (UA) 4+ H Ur Random Sodium <20 L 09/05/21 09/05/21 09/05/21 13:49 13:49 15:58 RBC 3.26 L Hgb 10.9 L Hct 29.6 L Sodium 116 L* 117 L* Chloride 85 L 89 L Carbon Dioxide BUN 34 H Creatinine 1.24 H Glucose 137 H POC Glucose (mg/dL) Calcium Total Bilirubin 2.4 H Creatine Kinase Lipase 324 H Urine Glucose (UA) Ur Random Sodium 09/05/21 09/05/21 09/05/21 18:58 21:07 21:25 RBC Hgb Hct Sodium 119 L* Chloride 89 L Carbon Dioxide BUN Creatinine Glucose POC Glucose (mg/dL) 122 H 122 H Calcium Total Bilirubin Creatine Kinase Lipase Urine Glucose (UA) Ur Random Sodium 09/05/21 09/06/21 09/06/21 23:22 03:43 03:43 RBC 2.87 L Hgb 9.5 L Hct 26.7 L Sodium 122 L Chloride 94 L Carbon Dioxide 20 L BUN 26 H Creatinine 1.13 H Glucose POC Glucose (mg/dL) 113 H Calcium 8.3 L Total Bilirubin Creatine Kinase Lipase Urine Glucose (UA) Ur Random Sodium 09/06/21 09/06/21 03:43 10:10 RBC Hgb Hct Sodium 125 L Chloride Carbon Dioxide BUN Creatinine Glucose POC Glucose (mg/dL) Calcium Total Bilirubin Creatine Kinase 138 H Lipase Urine Glucose (UA) Ur Random Sodium - Diagnostic Findings Chest x-ray: image reviewed Assessment and Plan Assessment: Generalized weakness secondary to hyponatremia secondary to nausea and vomiting Diabetes mellitus, recently started on Farxiga Coronary artery disease with previous stent placements Hypertension Hyperlipidemia Former smoker Paroxysmal atrial fibrillation Plan: The patient was seen and evaluated Chest x-ray and labs reviewed Remains on 3% normal saline at 25 ML's per hour Continue to monitor sodium Once off the hypertonic solution could be transferred out of the ICU We'll continue to follow and make further recommendations based on her clinical status I have personally seen and examined the patient, performed the documentation and the assessment and plan as written. Number of minutes spent on the visit: 20.
[2021-09-06 11:45] LABS: Glucose,Whole Blood 91 mg/dL (75-99)
--- NOTE | 2021-09-06 12:49 | P.NPCON ---
History of Present Illness - Reason for Consult hyponatremia - Chief Complaint Hyponatremia - History of Present Illness This is a 80-year-old female seen in for severe hyponatremia came in with a sodium of 116 with a creatinine of 1.24 and a BUN of 34. Her urine sodium was less than 20 urine osmolality is 443 She has been having nausea vomiting for the last approximately 1 month on and off. No diarrhea. She started Farxiga recently about 4-5 days ago. She is known with diabetes mellitus, atrial fibrillation, coronary artery disease with stents in the past. Her medication included triamterene hydrochlorothiazide combination for some time now. She complains of symptoms of GERD and takes Tums for it. Calcium was 8.3 on admission. She was started on 3% saline and her sodium has improved to 125. Patient denies any dizziness her nausea is improved. Past Medical History Past Medical History: Atrial Fibrillation, Coronary Artery Disease (CAD), Chest Pain / Angina, Hypertension, Osteoarthritis (OA) Additional Past Medical History / Comment(s): hx varicose veins, lower lobe of lung "collapsed", swelling lt ankle History of Any Multi-Drug Resistant Organisms: MRSA Date of last positivie culture/infection: 11/18/16 MDRO Source:: Head Past Surgical History: Breast Surgery, Cholecystectomy, Heart Catheterization With Stent, Tubal Ligation Additional Past Surgical History / Comment(s): three cardiac stents, rt breast lumpectomy Past Anesthesia/Blood Transfusion Reactions: Motion Sickness, Postoperative Nausea & Vomiting (PONV) Date of Last Stent Placement:: 2020 Past Psychological History: No Psychological Hx Reported Smoking Status: Former smoker Past Alcohol Use History: None Reported Additional Past Alcohol Use History / Comment(s): quit smoking 2003, smoked for 40 yrs, 1 PPD Past Drug Use History: None Reported - Past Family History Mother Family Medical History: No Reported History Brother(s) Family Medical History: Cancer Medications and Allergies Home Medications Medication Instructions Recorded Confirmed Type Aspirin [Adult Low Dose Aspirin EC] 81 mg PO DAILY 06/17/16 09/05/21 History Atorvastatin [Lipitor] 80 mg PO HS 06/17/16 09/05/21 History Nitroglycerin Sl Tabs [Nitrostat] 0.4 mg SUBLINGUAL Q5M PRN 06/17/16 09/05/21 History atenoloL [Tenormin] 25 mg PO BID 06/17/16 09/05/21 History Clopidogrel Bisulfate [Plavix] 75 mg PO HS 10/02/16 09/05/21 History amLODIPine [Norvasc] 2.5 mg PO BID 09/10/20 09/05/21 History Dapagliflozin Propanediol [Farxiga] 10 mg PO DAILY 09/05/21 09/05/21 History Ezetimibe [Zetia] 10 mg PO DAILY 09/05/21 09/05/21 History Yupelri 175mcg/3ml Loren 175 mg INHALATION RT-DAILY 09/05/21 09/05/21 History Allergies Allergy/AdvReac Type Severity Reaction Status Date / Time latex Allergy Rash/Hives Verified 09/05/21 17:16 minocycline AdvReac Nausea & Verified 09/05/21 17:16 Vomiting & Diarrhea sulfamethoxazole AdvReac Nausea & Verified 09/05/21 17:16 [From Bactrim] Vomiting & Diarrhea trimethoprim [From Bactrim] AdvReac Nausea & Verified 09/05/21 17:16 Vomiting & Diarrhea Physical Exam Vitals: Vital Signs Temp Pulse Resp BP Pulse Ox 09/06/21 11:00 73 11 L 89/59 94 L 09/06/21 10:00 74 14 106/49 96 09/06/21 09:00 79 12 95/50 97 09/06/21 08:00 97 F L 73 11 L 109/54 98 09/06/21 07:00 76 12 109/54 98 09/06/21 06:00 72 12 78/41 98 09/06/21 05:00 75 16 91/63 97 09/06/21 04:00 97.7 F 70 16 103/72 97 09/06/21 03:00 78 12 112/57 97 09/06/21 02:00 73 10 L 98/52 97 09/06/21 01:00 79 12 116/56 99 09/06/21 00:00 97.7 F 76 14 116/56 96 09/05/21 23:06 75 12 97/47 97 09/05/21 23:00 73 11 L 127/50 97 09/05/21 22:00 83 18 113/52 97 09/05/21 21:00 85 12 143/58 99 09/05/21 20:00 98.0 F 87 13 143/58 98 09/05/21 19:00 89 21 143/58 99 09/05/21 18:55 97.7 F 85 14 97 09/05/21 15:23 98.0 F 87 16 137/73 100 Intake and Output 09/05/21 09/06/21 09/06/21 22:59 06:59 14:59 Intake Total 75 200 125 Balance 75 200 125 Intake: IV 75 200 125 Sodium Chloride 3%( 75 200 125 Hypertonic) 500 ml @ 25 mls/hr IV .Q20H [facility] Rx#: [id number] Other: Voiding Method Toilet Toilet Toilet # Voids 0 0 1 Weight 77.111 kg 78.9 kg Examination awake alert oriented comfortable HEENT exam no JVP no lymphadenopathy neck is supple no facial asymmetry Lungs clear to auscultation good air entry bilaterally Heart sounds unremarkable for any murmur or gallop gallop Abdomen soft nontender no organomegaly status masses Extremity exam reveals no edema Neurologically awake alert oriented Results - Lab Results Most recent lab results Calcium 8.3 mg/dL (8.4-10.2) L 09/06/21 03:43 09/06/21 03:43 09/06/21 10:10 Assessment and Plan Assessment: Impression 1. Severe hyponatremia sodium 116, etiology is nausea vomiting and volume depletion. Urine sodium less than 28 urine osmolality 443. Responding to 3% saline, sodium improved to 124. 2. Mild acute kidney injury creatinine was 1.24, secondary to volume depletion nausea vomiting. He is lying creatinine 0.85 01/31/2020 with no interim creatinine available. 3. Possible chronic kidney disease although urine analysis shows no proteinuria on 09/05/2021 yesterday. 4. History of atrial fibrillation 5. History of coronary artery disease with stenting 6. Possible gastroparesis from diabetes was started on Protonix 40 twice a day IV Recommendation 1. Discontinue 3% saline and use normal saline and see how she does. We will give her 75 mL an hour 2. Check orthostatic blood pressures and heart rate. 3. Monitor labs in the evening and tomorrow. Thank you for this consultation and end of dictation
[2021-09-06] MEDS: SODIUM CHLORIDE 0.9% 1,000 ML IV SCH (13:27)
[2021-09-06 15:50] LABS: Calcium 8.2 mg/dL (8.4-10.2); Potassium 4.3 mmol/L (3.5-5.1)
[2021-09-06 17:26] LABS: Glucose,Whole Blood 104 mg/dL (75-99)
--- NOTE | 2021-09-06 18:46 | PN ---
PROGRESS NOTE DATE OF SERVICE: 09/06/2021 This 80-year-old woman who was admitted with significant hyponatremia also had nausea and vomiting. The possibility of hyponatremia caused by nausea and vomiting is a consideration. The patient was also started on Farxiga recently. Drug-induced hyponatremia is also a possibility. The patient is being closely monitored. Patient received 3% hypertonic saline at this time. Past medical history reviewed. REVIEW OF SYSTEMS: Fourteen-point review of systems negative except as mentioned earlier. CURRENT MEDICATIONS: Reviewed. They include Coolspring 5 mg, Norvasc. Doses and rest of the medications noted. PHYSICAL EXAMINATION: Pulse is 85, blood pressure 107/51, respirations 20. HEENT: Conjunctivae normal. NECK: No jugular venous distention. CARDIOVASCULAR: S1, S2 muffled. RESPIRATION: Breath sounds diminished at the bases. A few scattered rhonchi and crackles. ABDOMEN: Soft, nontender. LEGS: No edema. No swelling. NERVOUS SYSTEM: Diffusely weak. LABS: Reviewed. Sodium 125. Hemoglobin 9. Other labs are noted. ASSESSMENT: 1. Severe nausea, vomiting and acute gastritis. 2. Severe hyponatremia, possibly secondary to gastritis or secondary to Farxiga. 3. Bilateral leg pain. 4. Atrial fibrillation. 5. Hypertension. 6. History of degenerative joint disease. RECOMMENDATIONS AND DISCUSSION: I recommend to continue current medications, continue with the monitoring, symptomatic treatment. Otherwise, rest of the labs are reviewed, which are negative. I would recommend to closely follow with Nephrology. The sodium has improved. It is still in the hyponatremic range. The ultrasound was negative for DVT. Symptomatic treatment will be provided. See orders for details. Dr. Loo will follow in the morning. MMODL / IJN: [id number] / [facility]
[2021-09-06 21:13] LABS: Glucose,Whole Blood 124 mg/dL (75-99)
[2021-09-06] MEDS: ATORVASTATIN 80 MG TAB PO SCH (21:41)
[2021-09-06] MEDS: CLOPIDOGREL 75 MG TAB PO SCH (21:41)
[2021-09-06] MEDS: DOCUSATE 100 MG CAP PO SCH (21:41)
[2021-09-06] MEDS: MELATONIN 5 MG TABLET PO SCH (22:58)
[2021-09-07] MEDS: SODIUM CHLORIDE 0.9% 1,000 ML IV SCH ×2 (02:18→21:40)
[2021-09-07] MEDS ORDERED: EZETIMIBE 10 MG TAB ONE (10:30)
[2021-09-07] MEDS ORDERED: PANTOPRAZOLE 40 MG/10 ML VIAL ONE (10:30)
[2021-09-07] MEDS ORDERED: HEPARIN SODIUM,PORCINE 5,000 UNIT/ML 1 ML VIAL ONE (10:30)
[2021-09-07] MEDS ORDERED: ASPIRIN 81 MG ONE (10:30)
[2021-09-07 10:53] LABS: Glucose,Whole Blood 93 mg/dL (75-99)
[2021-09-07 12:14] LABS: Glucose,Whole Blood 141 mg/dL (75-99)
[2021-09-07] MEDS: EZETIMIBE 10 MG TAB PO SCH (12:25)
[2021-09-07] MEDS: ASPIRIN 81 MG PO SCH (12:25)
[2021-09-07] MEDS: HEPARIN SODIUM,PORCINE/PF 5,000 UNIT/0.5 ML SYRINGE SQ SCH ×2 (12:25→21:38)
[2021-09-07] MEDS: atenoloL 25 MG TAB PO SCH (12:25)
[2021-09-07] MEDS: amLODIPine 2.5 MG TAB PO SCH (12:25)
[2021-09-07] MEDS: PANTOPRAZOLE 40 MG/10 ML VIAL IVP SCH ×2 (12:26→21:39)
--- NOTE | 2021-09-07 12:38 | P.PN ---
Subjective Progress Note Date: 09/07/21 This is a 72-year-old female who is presented for significant hyponatremia with associated nausea and vomiting. States she had some breakfast today which so far she is tolerating. Patient states her last episode of emesis was Tuesday night. She also complains of generalized weakness. Patient was receiving 3% saline influsion which has now been transitioned to 0.9 normal saline. She was transferred out of the ICU yesterday evening. Most recent sodium documented is 127. Bun 21, creatinine 1.11, blood glucose elevated in the 140s. Blood pressure is on the lower side 83/44. Hold norvasc and tenormin. She is being followed closely by nephrology. Review of Systems Constitutional: Reports fatigue denied any fever. Cardio vascular: denied any chest pain, palpitations Gastrointestinal: denied any nausea, vomiting, diarrhea Pulmonary: Denied any shortness of breath cough Neurologic denied any new focal deficits All inpatient medications were reviewed and appropriate changes in these medications as dictated in the interval history and assessment and plan. PHYSICAL EXAMINATION: GENERAL: The patient is alert and oriented x3, not in any acute distress. Well developed, well nourished. HEENT: Pupils are round and equally reacting to light. EOMI. No scleral icterus. No conjunctival pallor. Normocephalic, atraumatic. No pharyngeal erythema. No thyromegaly. CARDIOVASCULAR: S1 and S2 present. No murmurs, rubs, or gallops. PULMONARY: Chest is clear to auscultation, no wheezing or crackles. ABDOMEN: Soft, nontender, nondistended, normoactive bowel sounds. No palpable organomegaly. MUSCULOSKELETAL: No joint swelling or deformity. EXTREMITIES: No cyanosis, clubbing, or pedal edema. NEUROLOGICAL: Gross neurological examination did not reveal any focal deficits. SKIN: No rashes. Assessment and plan Assessment 1. Severe nausea with emesis and acute gastritis Severe hyponatremia requiring 3% saline influsion, improved to 127 and fluids have been transitioned to 0.9 normal saline. Bilateral leg pain Atrial fibrillatin Hypertension Coronary artery disease status post stenting History of degenerative joint disease Former Smoker GI Prophylaxis DVT Prophylaxis Do Not Resuscitate Plan Continue IV fluids Hold blood pressure medications Repeat sodium today Novolog ordered Continue to hold Farxiga Appreciate nephrology consultation PT/OT consult The impression and plan of care has been dictated by Lisa Sequeira, Nurse Practitioner as directed. Dr. Ibis MD I have performed a history and physical examination and medical decision making of this patient, discussed the same with the dictator, and agree with the dictators assessment and plan as written, documented as a scribe. Based on total visit time, I have performed more than 50% of this visit. Objective - Vital Signs Vital signs: Vital Signs Temp 98.0 F 09/07/21 04: Pulse 71 09/07/21 04:22 Resp 18 09/07/21 04:22 BP 83/44 09/07/21 04:22 Pulse Ox 98 09/07/21 04:22 Intake & Output 09/06/21 09/07/21 09/07/21 18:59 06:59 18:59 Intake Total 325 900 Balance 325 900 Intake: IV 325 Sodium Chloride 0.9% 1, 150 000 ml @ 75 mls/hr IV . [id number] [facility] Rx#:[id number] Sodium Chloride 3%( 175 Hypertonic) 500 ml @ 25 mls/hr IV .Q20H [facility] Rx#: [id number] Intake, IV Titration 900 Amount Sodium Chloride 0.9% 1, 900 000 ml @ 75 mls/hr IV . [id number] [facility] Rx#:[id number] Other: Voiding Method Toilet Toilet Bedside Commode # Voids 1 - Labs CBC & Chem 7: 09/06/21 03:43 09/06/21 15:23 Labs: Abnormal Lab Results - Last 24 Hours (Table) 09/06/21 09/06/21 09/06/21 Range/Units 15:23 15:54 17:25 Sodium 127 L (137-145) mmol/L BUN 21 H (7-17) mg/dL Creatinine 1.11 H (0.52-1.04) mg/dL POC Glucose (mg/dL) 104 H (75-99) mg/dL Calcium 8.2 L (8.4-10.2) mg/dL Ur Random Sodium 30 L (40-220) mmol/L 09/06/21 Range/Units 21:02 Sodium (137-145) mmol/L BUN (7-17) mg/dL Creatinine (0.52-1.04) mg/dL POC Glucose (mg/dL) 124 H (75-99) mg/dL Calcium (8.4-10.2) mg/dL Ur Random Sodium (40-220) mmol/L Assessment and Plan Time with Patient: Less than 30
--- NOTE | 2021-09-07 13:44 | P.PN ---
Subjective Patient is seen in follow-up for acute kidney injury and hyponatremia. Sodium level 127 yesterday. Receiving normal saline. Has been voiding. Blood pressure controlled. Denies vomiting or diarrhea. Vital signs are stable. General: Awake. No acute distress. HEENT: Head exam is unremarkable. LUNGS: Breath sounds decreased. HEART: Rate and Rhythm are regular. ABDOMEN: Soft, no distention. EXTREMITITES: No edema. Objective - Vital Signs Vital signs: Vital Signs Temp 97.9 F 09/07/21 12:36 Pulse 83 09/07/21 12:36 Resp 17 09/07/21 12:36 BP 123/72 09/07/21 12:36 Pulse Ox 100 09/07/21 12:36 Intake & Output 09/06/21 09/07/21 09/07/21 18:59 06:59 18:59 Intake Total 325 900 Balance 325 900 Intake: IV 325 Sodium Chloride 0.9% 1, 150 000 ml @ 75 mls/hr IV . [id number] [facility] Rx#:[id number] Sodium Chloride 3%( 175 Hypertonic) 500 ml @ 25 mls/hr IV .Q20H [facility] Rx#: [id number] Intake, IV Titration 900 Amount Sodium Chloride 0.9% 1, 900 000 ml @ 75 mls/hr IV . [id number] [facility] Rx#:[id number] Other: Voiding Method Toilet Toilet Toilet Bedside Commode Bedside Commode # Voids 1 - Labs CBC & Chem 7: 09/06/21 03:43 09/06/21 15:23 Labs: Abnormal Lab Results - Last 24 Hours (Table) 09/06/21 09/06/21 09/06/21 Range/Units 15:23 15:54 17:25 Sodium 127 L (137-145) mmol/L BUN 21 H (7-17) mg/dL Creatinine 1.11 H (0.52-1.04) mg/dL POC Glucose (mg/dL) 104 H (75-99) mg/dL Calcium 8.2 L (8.4-10.2) mg/dL Ur Random Sodium 30 L (40-220) mmol/L 09/06/21 09/07/21 Range/Units 21:02 11:55 Sodium (137-145) mmol/L BUN (7-17) mg/dL Creatinine (0.52-1.04) mg/dL POC Glucose (mg/dL) 124 H 141 H (75-99) mg/dL Calcium (8.4-10.2) mg/dL Ur Random Sodium (40-220) mmol/L Assessment and Plan Plan: Assessment: 1. Hypovolemic hyponatremia secondary to vomiting status post 3%. Now on normal saline. Sodium level improved. Urine osmolality 443 and urine sodium initially less than 20. 2. Benign hypertension. Controlled. 3. Anemia. Rule out iron deficiency. 4. Mild acute kidney injury mostly prerenal improved with IV hydration. UA benign. Creatinine 1.1 yesterday. 5. History of CABG. 6. Diabetes mellitus. Plan: Maintain normal saline. Encouraged oral intake. Follow-up morning labs. Check iron studies. Check TSH and cortisol level.
[2021-09-07 13:49] VITALS: BMI 28.0
[2021-09-07 13:54] LABS: African American GFR (CKD) 63 (>60 ml/min/1.73 sqM); Anion Gap 7 mmol/L; Blood Urea Nitrogen 16 mg/dL (7-17); Calcium 8.1 mg/dL (8.4-10.2); Carbon Dioxide 23 mmol/L (22-30); Chloride 102 mmol/L (98-107); Glucose 112 mg/dL (74-99); Non-African American GFR(CKD) 55 (>60 ml/min/1.73 sqM); Potassium 3.9 mmol/L (3.5-5.1); Sodium 132 mmol/L (137-145)
--- NOTE | 2021-09-07 14:57 | P.PN ---
Subjective Progress Note Date: 09/07/21 This is a 80-year-old here patient was in the intensive care unit for severe hyponatremia. Sodium level was as low as 119. The patient was placed on 3% saline and she had improvement in his total level up to 125. The saline was discontinued. Subsequently, the sodium level normalized itself and the patient was transferred out of the intensive care unit. The patient has no mental status change. The patient is currently on a medical floor. Her primary complaint was generalized weakness and nausea and emesis. She is known to have CAD, hypertension, and history of coronary stenting and chronic atrial fibrillation. The patient is currently on room air oxygen. She is known to have diabetes mellitus. She has paroxysmal atrial fibrillation. Blood work from today shows a sodium level of 132 BUN of 16 and creatinine 0.9. The chest x-ray was showing some pleural reaction and some atelectatic changes in the right lung base without any acute abnormalities. Doppler of the lower extremities were essentially negative. The patient is being seen by nephrology. No nausea. No vomiting. Did producing adequate amount of urine output. This was essentially a hypovolemic hyponatremia which improved. Objective - Vital Signs Vital signs: Vital Signs Temp 97.9 F 09/07/21 12:36 Pulse 83 09/07/21 12:36 Resp 17 09/07/21 12:36 BP 123/72 09/07/21 12:36 Pulse Ox 100 09/07/21 12:36 Intake & Output 09/06/21 09/07/21 09/07/21 18:59 06:59 18:59 Intake Total 325 900 Balance 325 900 Weight 78.9 kg Intake: IV 325 Sodium Chloride 0.9% 1, 150 000 ml @ 75 mls/hr IV . [id number] [facility] Rx#:[id number] Sodium Chloride 3%( 175 Hypertonic) 500 ml @ 25 mls/hr IV .Q20H [facility] Rx#: [id number] Intake, IV Titration 900 Amount Sodium Chloride 0.9% 1, 900 000 ml @ 75 mls/hr IV . [id number] [facility] Rx#:[id number] Other: Voiding Method Toilet Toilet Toilet Bedside Commode Bedside Commode # Voids 1 - Exam GENERAL EXAM: Alert, very pleasant 80-year-old female, on room air, comfortable in no apparent distress. HEAD: Normocephalic. EYES: Normal reaction of pupils, equal size. NOSE: Clear with pink turbinates. THROAT: No erythema or exudates. NECK: No masses, no JVD. CHEST: No chest wall deformity. LUNGS: Equal air entry with no crackles, wheeze, rhonchi or dullness. CVS: S1 and S2 normal with no audible murmur, regular rhythm. ABDOMEN: No hepatosplenomegaly, normal bowel sounds, no guarding or rigidity. SPINE: No scoliosis or deformity SKIN: No rashes CENTRAL NERVOUS SYSTEM: No focal deficits, tone is normal in all 4 extremities. EXTREMITIES: There is no peripheral edema. No clubbing, no cyanosis. Peripheral pulses are intact. - Labs CBC & Chem 7: 09/06/21 03:43 09/07/21 12:54 Labs: Abnormal Lab Results - Last 24 Hours (Table) 09/06/21 09/06/21 09/06/21 Range/Units 15:23 15:54 17:25 Sodium 127 L (137-145) mmol/L BUN 21 H (7-17) mg/dL Creatinine 1.11 H (0.52-1.04) mg/dL Glucose (74-99) mg/dL POC Glucose (mg/dL) 104 H (75-99) mg/dL Calcium 8.2 L (8.4-10.2) mg/dL Ur Random Sodium 30 L (40-220) mmol/L 09/06/21 09/07/21 09/07/21 Range/Units 21:02 11:55 12:54 Sodium 132 L (137-145) mmol/L BUN (7-17) mg/dL Creatinine (0.52-1.04) mg/dL Glucose 112 H (74-99) mg/dL POC Glucose (mg/dL) 124 H 141 H (75-99) mg/dL Calcium 8.1 L (8.4-10.2) mg/dL Ur Random Sodium (40-220) mmol/L Assessment and Plan Plan: Generalized weakness secondary to hyponatremia secondary to nausea and vomiting, hypovolemic hyponatremia which improved. Diabetes mellitus, recently started on Farxiga Coronary artery disease with previous stent placements Hypertension Hyperlipidemia Former smoker Paroxysmal atrial fibrillation Plan: Transfer this patient out of the intensive care unit Sodium level normalized We'll sign off the case
[2021-09-07 17:09] LABS: Glucose,Whole Blood 142 mg/dL (75-99)
[2021-09-07] MEDS: INSULIN ASPART (NovoLOG) 100 UNIT/ML VIAL SQ SCH ×2 (18:04→21:39)
--- NOTE | 2021-09-07 21:06 | P.PN ---
Subjective Progress Note Date: 09/07/21 Principal diagnosis: The patient is essentially admitted for hyponatremia. This morning sodium was 132. She still feels significant fatigue. Underlying each eye hypertension and hyperlipidemia. No voiding difficulties. No significant chest pain or shortness of breath. No nausea, vomiting or diarrhea. Objective - Vital Signs Vital signs: Vital Signs Temp 97.9 F 09/07/21 12:36 Pulse 83 09/07/21 12:36 Resp 17 09/07/21 12:36 BP 123/72 09/07/21 12:36 Pulse Ox 100 09/07/21 12:36 Intake & Output 09/07/21 09/07/21 09/08/21 06:59 18:59 06:59 Intake Total 900 840 Balance 900 840 Weight 78.9 kg Intake: Intake, IV Titration 900 Amount Sodium Chloride 0.9% 1, 900 000 ml @ 75 mls/hr IV . [id number] [facility] Rx#:[id number] Oral 840 Other: Voiding Method Toilet Toilet Bedside Commode Bedside Commode # Voids 4 - Constitutional General appearance: Present: average body habitus - EENT Eyes: Absent: abnormal pupil - Neck Neck: Absent: lymphadenopathy - Respiratory Respiratory: bilateral: CTA - Cardiovascular Rhythm: regular Heart sounds: normal: S1, S2 Abnormal Heart Sounds: Absent: S3 Gallop - Gastrointestinal General gastrointestinal: Present: soft. Absent: tenderness - Psychiatric Psychiatric: Present: A&O x's 3 - Labs CBC & Chem 7: 09/06/21 03:43 09/07/21 12:54 Labs: Abnormal Lab Results - Last 24 Hours (Table) 09/06/21 09/06/21 09/07/21 Range/Units 15:54 21:02 11:55 Sodium (137-145) mmol/L Glucose (74-99) mg/dL POC Glucose (mg/dL) 124 H 141 H (75-99) mg/dL Calcium (8.4-10.2) mg/dL Ur Random Sodium 30 L (40-220) mmol/L 09/07/21 09/07/21 Range/Units 12:54 17:04 Sodium 132 L (137-145) mmol/L Glucose 112 H (74-99) mg/dL POC Glucose (mg/dL) 142 H (75-99) mg/dL Calcium 8.1 L (8.4-10.2) mg/dL Ur Random Sodium (40-220) mmol/L Assessment and Plan (1) Hyponatremia Current Visit: Yes Status: Acute Code(s): E87.1 - HYPO-OSMOLALITY AND HYPONATREMIA SNOMED Code(s): 04233873 (2) Nausea & vomiting Current Visit: Yes Status: Acute Code(s): R11.2 - NAUSEA WITH VOMITING, UNSPECIFIED SNOMED Code(s): 33757160 (3) Dehydration Current Visit: No Status: Acute Code(s): E86.0 - DEHYDRATION SNOMED Code(s): 44859775 Plan: Check CMP in the morning. Hyponatremia is improving. Still with significant fatigue. Overall improvement. We will continue to follow. Appreciate multiple consultants input.
[2021-09-07 21:13] LABS: Glucose,Whole Blood 170 mg/dL (75-99)
[2021-09-07] MEDS: CLOPIDOGREL 75 MG TAB PO SCH (21:38)
[2021-09-07] MEDS: ATORVASTATIN 80 MG TAB PO SCH (21:38)
[2021-09-07] MEDS: DOCUSATE 100 MG CAP PO SCH (21:38)
[2021-09-07] MEDS: MELATONIN 5 MG TABLET PO SCH (21:39)
[2021-09-08] MEDS: SODIUM CHLORIDE 0.9% 1,000 ML IV SCH (04:44)
[2021-09-08 07:16] LABS: Glucose,Whole Blood 104 mg/dL (75-99)
[2021-09-08] MEDS: INSULIN ASPART (NovoLOG) 100 UNIT/ML VIAL SQ SCH ×4 (07:28→21:03)
--- NOTE | 2021-09-08 09:24 | P.PN ---
Subjective Principal diagnosis: The patient is essentially admitted for hyponatremia. This morning sodium was 132. She still feels significant fatigue. Underlying each eye hypertension and hyperlipidemia. No voiding difficulties. No significant chest pain or shortness of breath. No nausea, vomiting or diarrhea. The patient however states worsening tremor over the last month. Difficult to control and her writing has started becoming more difficult. Objective - Vital Signs Vital signs: Vital Signs Temp 98.7 F 09/08/21 07:55 Pulse 88 09/08/21 07:55 Resp 18 09/08/21 07:55 BP 117/58 09/08/21 07:55 Pulse Ox 98 09/08/21 07:55 Intake & Output 09/07/21 09/08/21 09/08/21 18:59 06:59 18:59 Intake Total 840 900 Balance 840 900 Weight 78.9 kg Intake: Intake, IV Titration 900 Amount Sodium Chloride 0.9% 1, 900 000 ml @ 75 mls/hr IV . [id number] [facility] Rx#:[id number] Oral 840 Other: Voiding Method Toilet Toilet Bedside Commode Bedside Commode # Voids 4 4 - Constitutional General appearance: Present: average body habitus - EENT Eyes: Absent: abnormal pupil - Neck Neck: Absent: lymphadenopathy - Respiratory Respiratory: bilateral: diminished - Cardiovascular Rhythm: regular Heart sounds: normal: S1, S2 Abnormal Heart Sounds: Absent: S3 Gallop - Gastrointestinal General gastrointestinal: Present: soft, tenderness - Neurologic Neurologic Comment(s): Tremor noted non-intention - Labs CBC & Chem 7: 09/06/21 03:43 09/07/21 12:54 Labs: Abnormal Lab Results - Last 24 Hours (Table) 09/07/21 09/07/21 09/07/21 Range/Units 11:55 12:54 17:04 Sodium 132 L (137-145) mmol/L Glucose 112 H (74-99) mg/dL POC Glucose (mg/dL) 141 H 142 H (75-99) mg/dL Calcium 8.1 L (8.4-10.2) mg/dL 09/07/21 09/08/21 Range/Units 21:10 07:11 Sodium (137-145) mmol/L Glucose (74-99) mg/dL POC Glucose (mg/dL) 170 H 104 H (75-99) mg/dL Calcium (8.4-10.2) mg/dL Assessment and Plan (1) Hyponatremia Current Visit: Yes Status: Acute Code(s): E87.1 - HYPO-OSMOLALITY AND HYPONATREMIA SNOMED Code(s): 89567977 (2) Nausea & vomiting Current Visit: Yes Status: Acute Code(s): R11.2 - NAUSEA WITH VOMITING, UNSPECIFIED SNOMED Code(s): 17331759 (3) Dehydration Current Visit: No Status: Acute Code(s): E86.0 - DEHYDRATION SNOMED Code(s): 15339269 (4) Essential tremor Current Visit: Yes Status: Acute Code(s): G25.0 - ESSENTIAL TREMOR SNOMED Code(s): 743593806 Plan: Check CMP in the morning. Hyponatremia is improving. Still with significant fatigue. Overall improvement. We will continue to follow. Appreciate multiple consultants input. We will ask neurology to see evaluate the tremor of the patient. Time with Patient: Greater than 30
[2021-09-08] MEDS: EZETIMIBE 10 MG TAB PO SCH (09:30)
[2021-09-08] MEDS: ASPIRIN 81 MG PO SCH (09:30)
[2021-09-08] MEDS: HEPARIN SODIUM,PORCINE/PF 5,000 UNIT/0.5 ML SYRINGE SQ SCH ×2 (09:31→21:03)
[2021-09-08] MEDS: PANTOPRAZOLE 40 MG/10 ML VIAL IVP SCH ×2 (09:31→21:04)
[2021-09-08 09:35] LABS: ALT 21 U/L (8-44); AST 22 U/L (13-35); African American GFR (CKD) 81.8 (60.0-200.0); Albumin 3.2 g/dL (3.8-4.9); Alkaline Phosphatase 43 U/L (41-126); BUN/Creat Ratio 8.13 Ratio (12.00-20.00); Blood Urea Nitrogen 6.5 mg/dL (9.0-27.0); Calcium 7.6 mg/dL (8.7-10.3); Carbon Dioxide 20.9 mmol/L (20.0-27.5); Chloride 103 mmol/L (96-109); Globulin 0.1 g/dL (1.6-3.3); Glucose 88 mg/dL (70-110); Magnesium 1.7 mg/dL (1.5-2.4); Non-African American GFR(CKD) 70.6 (60.0-200.0); Potassium 3.5 mmol/L (3.5-5.5); Sodium 133 mmol/L (135-145); Total Protein 3.3 g/dL (6.2-8.2)
--- NOTE | 2021-09-08 10:18 | P.PN ---
Subjective Patient is seen in follow-up for acute kidney injury and hyponatremia. Sodium level 133 today. Receiving normal saline. Has been voiding. Blood pressure controlled. Denies vomiting or diarrhea. Oral intake fair. Vital signs are stable. General: Awake. No acute distress. HEENT: Head exam is unremarkable. LUNGS: Breath sounds decreased. HEART: Rate and Rhythm are regular. ABDOMEN: Soft, no distention. EXTREMITITES: No edema. Objective - Vital Signs Vital signs: Vital Signs Temp 98.7 F 09/08/21 07:55 Pulse 88 09/08/21 07:55 Resp 18 09/08/21 07:55 BP 117/58 09/08/21 07:55 Pulse Ox 98 09/08/21 07:55 Intake & Output 09/07/21 09/08/21 09/08/21 18:59 06:59 18:59 Intake Total 840 900 Balance 840 900 Weight 78.9 kg Intake: Intake, IV Titration 900 Amount Sodium Chloride 0.9% 1, 900 000 ml @ 75 mls/hr IV . [id number] [facility] Rx#:[id number] Oral 840 Other: Voiding Method Toilet Toilet Bedside Commode Bedside Commode # Voids 4 4 - Labs CBC & Chem 7: 09/06/21 03:43 09/08/21 05:37 Labs: Abnormal Lab Results - Last 24 Hours (Table) 09/07/21 09/07/21 09/07/21 Range/Units 11:55 12:54 17:04 Sodium 132 L (137-145) mmol/L Anion Gap (10.00-18.00) mmol/L BUN (9.0-27.0) mg/dL BUN/Creatinine Ratio (12.00-20.00) Ratio Glucose 112 H (74-99) mg/dL POC Glucose (mg/dL) 141 H 142 H (75-99) mg/dL Calcium 8.1 L (8.4-10.2) mg/dL Total Protein (6.2-8.2) g/dL Albumin (3.8-4.9) g/dL Globulin (1.6-3.3) g/dL Albumin/Globulin Ratio (1.60-3.17) g/dL 09/07/21 09/08/21 09/08/21 Range/Units 21:10 05:37 07:11 Sodium 133 L (137-145) mmol/L Anion Gap 9.10 L (10.00-18.00) mmol/L BUN 6.5 L (9.0-27.0) mg/dL BUN/Creatinine Ratio 8.13 L (12.00-20.00) Ratio Glucose (74-99) mg/dL POC Glucose (mg/dL) 170 H 104 H (75-99) mg/dL Calcium 7.6 L (8.4-10.2) mg/dL Total Protein 3.3 L (6.2-8.2) g/dL Albumin 3.2 L (3.8-4.9) g/dL Globulin 0.1 L (1.6-3.3) g/dL Albumin/Globulin Ratio 32.00 H (1.60-3.17) g/dL Assessment and Plan Plan: Assessment: 1. Hypovolemic hyponatremia secondary to vomiting status post 3%. Now on normal saline. Sodium level improved. Urine osmolality 443 and urine sodium initially less than 20. Cortisol level not low. TSH normal. Sodium level 133 today. 2. Benign hypertension. Controlled. 3. Anemia. Rule out iron deficiency. 4. Mild acute kidney injury mostly prerenal improved with IV hydration. UA benign. Improved. Creatinine 0.8 today. 5. History of CABG. 6. Diabetes mellitus. Plan: Hep-Lock IV fluids. Encouraged oral intake. Maintain 1500 mL fluid restriction. Follow-up iron studies.
[2021-09-08 12:06] LABS: Glucose,Whole Blood 128 mg/dL (75-99)
--- NOTE | 2021-09-08 12:43 | CDI ---
Documentation Clarification Form Date: 09/08/2021 12:35:43 PM From: Alma Rosa Ha CCS, CCDS Admit Date: 09/05/2021 05:55:00 PM Patient Name: Kasie Thomas Visit Number: [id number] Discharge Date: ATTENTION: The Clinical Documentation Specialists (CDI) and [facility] Coding Staff appreciate your assistance in clarifying documentation. Please respond to the clarification below the line at the bottom and electronically sign. The CDI & [facility] Coding staff will review the response and follow-up if needed. Please note: Queries are made part of the Legal Health Record. If you have any questions, please contact the author of this message via ITS. Dr. Bart Lopez: Anemia without further specificity is documented in the Nephrology Progress Notes on 09/07 & 09/08. Per the 09/06 Nephrology Consult: Possible CKD although urine analysis shows no proteinuria. Additional specificity regarding the Type & Acuity of Anemia is requested. History/Risk Factors per the 09/05 H/P: Atrial Fibrillation, CAD status post stents, DM, Hypertension, Former smoker. Clinical indicators: Presented to the ED on 09/05 with Nausea, Vomiting, Diarrhea. Admit with Hyponatremia, Nausea & Vomiting Hemoglobin: 09/05: 10.9, 09/06: 9.5 Hematocrit: 09/05: 29.6. 09/06: 26.7 Treatment 09/05: Blood glucose monitoring, IV Zofran 4 mg x1, IV Na Cl 1,000 mls @ 999 mls/hr q1H, IV Dilaudid 0.5 mg q4H, IV Na Cl Hypertonic Saline 3% 500 mls @ 25 mls/hr q20H Please clarify the Type & Acuity of Anemia: [ ] Chronic blood loss anemia [ ] Iron deficiency anemia [ ] Hemolytic anemia [ ] Drug induced anemia [ ] Anemia of chronic kidney disease [ ] Unable to determine [ ] Other, please specify (Template Last Revised: June 2020) unable to determine; iron studies will be checked MTDD
--- NOTE | 2021-09-08 12:56 | CDI ---
Documentation Clarification Form Date: 09/08/2021 12:44:00 PM From: Alma Rosa HaBEVERLY jasso, CCDS Admit Date: 09/05/2021 05:55:00 PM Patient Name: Kasie Thomas Visit Number: [id number] Discharge Date: ATTENTION: The Clinical Documentation Specialists (CDI) and [facility] Coding Staff appreciate your assistance in clarifying documentation. Please respond to the clarification below the line at the bottom and electronically sign. The CDI & [facility] Coding staff will review the response and follow-up if needed. Please note: Queries are made part of the Legal Health Record. If you have any questions, please contact the author of this message via ITS. Dr. Bart Lopez: Possible Chronic Kidney Disease although urine analysis shows no proteinuria on 09/05 is documented in the 09/06 Nephrology Consult. Additional clarification regarding the CKD is requested. History/Risk Factors per the 09/05 H/P: Atrial Fibrillation, CAD status post stents, DM, Hypertension, Former smoker. Clinical indicators: Presented to the ED on 09/05 with Nausea, Vomiting, Diarrhea. Admit with Hyponatremia, Nausea & Vomiting 09/05 VS: Stable. 09/05 LAB: RBC 3.26, Hgb 10.9, Hct 29.6; Na 117, Chloride 89. Glucose 137, Total Bilirubin 2.4m Lipase 324 09/05: BUN: 34. 4/: 26, 21. 09/07: 16. 09/08: 6.5 09/05 Creatinine: 1.24. 09/06: 1.13, 1.11. 09/07: 0.99, 09/08: 0.8. GFR: 09/05: 42. 09/06: 47, 48; 09/07: 55. 09/08: 70.6 Historical GFR: 12/21/2016: >60 09/05 UA: Clear, 4+ glucose, Random Na <20 09/05 KUB: Nonacute abdomen. Mild pleural reaction & atelectasis right lung baseline. Treatment 09/05: Blood glucose monitoring, IV Zofran 4 mg x1, IV Na Cl 1,000 mls @ 999 mls/hr q1H, IV Dilaudid 0.5 mg q4H, IV Na Cl Hypertonic Saline 3% 500 mls @ 25 mls/hr q20H. Please clarify the stage of the CKD, if known or is CKD ruled out? : [ ] CKD Stage 2 (GFR 60-89) [ ] CKD Stage 3 (GFR 30-59) [ ] CKD Stage 3a (GFR 45-59) [ ] CKD Stage 3b (GFR 30-44) [ ] CKD is ruled out [ ] Other, please specify: [ ] Unable to determine (Template Last revised: June 2020) no ckd MTDD
[2021-09-08] MEDS: Dapagliflozin Propanediol [Farxiga] PO SCH (14:38)
--- NOTE | 2021-09-08 16:10 | P.CNNES ---
History of Present Illness Consult date: 09/08/21 Requesting physician: Rg Loo Reason for Consult: worsening tremor History of Present Illness: This is a 80-year-old woman with medical history of hypertension, hyperlipidemia, diabetes mellitus, atrial fibrillation, coronary artery disease status post stent, former smoker who presented emergency department for gener alized weakness, nausea and vomiting for 3 days prior to presenting to the hospital. Neurology is consulted for worsening tremor. Patient stated she has been having tremors of both uppers mostly right > left in the last 1-2 months. She stated about two months ago her sugars was extremely elevated and currently her sodium is low. She feels her tremor are worse with action. Denies any dysphagia, visual disturbance, focal weakness. Denies any family history of Parkinson's disease. Some other workup in the hospital consisted of: Current blood pressure is 126/73 during this hospital stay patient had a blood pressure as low as a 80s systolic diastolic in the 50s Hemoglobin is as low as 9.5. Hematocrit is 26.7 otherwise rest of CBC differential is unremarkable Initial sodium was 116 about most recent sodium is 133. Initial creatinine is 1.24 and currently its 0.8. TSH is 0.477. Calcium presentation is not 0.4 and most current one is 7.6. Review of Systems Review of system: The 12 point system was reviewed and apparent positive and negative per HPI. Past Medical History Past Medical History: Atrial Fibrillation, Coronary Artery Disease (CAD), Chest Pain / Angina, Hypertension, Osteoarthritis (OA) Additional Past Medical History / Comment(s): hx varicose veins, lower lobe of lung "collapsed", swelling lt ankle History of Any Multi-Drug Resistant Organisms: MRSA Date of last positivie culture/infection: 11/18/16 MDRO Source:: Head Past Surgical History: Breast Surgery, Cholecystectomy, Heart Catheterization With Stent, Tubal Ligation Additional Past Surgical History / Comment(s): three cardiac stents, rt breast lumpectomy Past Anesthesia/Blood Transfusion Reactions: Motion Sickness, Postoperative Nausea & Vomiting (PONV) Date of Last Stent Placement:: 2020 Past Psychological History: No Psychological Hx Reported Smoking Status: Former smoker Past Alcohol Use History: None Reported Additional Past Alcohol Use History / Comment(s): quit smoking 2003, smoked for 40 yrs, 1 PPD Past Drug Use History: None Reported - Past Family History Mother Family Medical History: No Reported History Brother(s) Family Medical History: Cancer Medications and Allergies Home Medications Medication Instructions Recorded Confirmed Type Aspirin [Adult Low Dose Aspirin EC] 81 mg PO DAILY 06/17/16 09/05/21 History Atorvastatin [Lipitor] 80 mg PO HS 06/17/16 09/05/21 History Nitroglycerin Sl Tabs [Nitrostat] 0.4 mg SUBLINGUAL Q5M PRN 06/17/16 09/05/21 History atenoloL [Tenormin] 25 mg PO BID 06/17/16 09/05/21 History Clopidogrel Bisulfate [Plavix] 75 mg PO HS 10/02/16 09/05/21 History amLODIPine [Norvasc] 2.5 mg PO BID 09/10/20 09/05/21 History Dapagliflozin Propanediol [Farxiga] 10 mg PO DAILY 09/05/21 09/05/21 History Ezetimibe [Zetia] 10 mg PO DAILY 09/05/21 09/05/21 History Yupelri 175mcg/3ml Loren 175 mg INHALATION RT-DAILY 09/05/21 09/05/21 History Allergies Allergy/AdvReac Type Severity Reaction Status Date / Time latex Allergy Rash/Hives Verified 09/05/21 17:16 minocycline AdvReac Nausea & Verified 09/05/21 17:16 Vomiting & Diarrhea sulfamethoxazole AdvReac Nausea & Verified 09/05/21 17:16 [From Bactrim] Vomiting & Diarrhea trimethoprim [From Bactrim] AdvReac Nausea & Verified 09/05/21 17:16 Vomiting & Diarrhea Physical Examination - Vital Signs Vital Signs: Vital Signs Temp Pulse Resp BP BP Pulse Ox 09/08/21 12:01 98.6 F 97 28 H 126/73 100 09/08/21 07:55 98.7 F 88 18 117/58 98 09/08/21 04:11 98.9 F 88 18 94/56 97 09/07/21 21:00 98.3 F 95 20 147/71 98 09/07/21 19:51 95 20 Intake and Output 09/07/21 09/08/21 09/08/21 22:59 06:59 14:59 Intake Total 840 900 Balance 840 900 Intake: Intake, IV Titration 900 Amount Sodium Chloride 0.9% 1, 900 000 ml @ 75 mls/hr IV . [id number] [facility] Rx#:[id number] Oral 840 Other: Voiding Method Toilet Toilet Bedside Commode Bedside Commode # Voids 4 1 # Bowel Movements 1 GENERAL: The patient is lying in bed and is not in acute distress. CHEST: The heart rate is regular rate rhythm. No murmurs to auscultation. LUNG: Clear to auscultation bilaterally no wheezing noted throughout. Not labored breathing. ABDOMEN/GI: Bowel sounds present in all 4 quadrants. No tenderness to palpation throughout. NEUROLOGICAL: Higher mental function: The patient is awake, alert, oriented to self, place and time. Patient is following commands. No aphasia and no neglect. Cranial nerves: The pupils are round, equal and reactive to light. Visual álvarez are full to confrontation throughout. Extraocular movement is intact no nystagmus is noted. Facial sensation is normal to touch throughout. The facial strength is normal throughout. Hearing is normal bilaterally to hand rub. Tongue is midline and moved [id number] without any difficulty. No dysarthria is noted. Shoulder shrug is normal bilaterally. Motor: Gait is deferred. The strength is 5 over 5 throughout uppers while lowers is able to raise above gravity. Normal tone and bulk. Has minimal resting tremor of right hand. Cerebellum: Normal finger to nose bilaterally. Sensation: Sensation is normal to touch throughout. Reflexes (right/left): 1+ throughout. Plantars are downgoing bilaterally. Results - Laboratory Findings CBC and BMP: 09/06/21 03:43 09/08/21 05:37 Abnormal Lab Findings: Abnormal Labs 09/05/21 09/05/21 09/05/21 13:29 13:48 13:48 RBC Hgb Hct Sodium Chloride Carbon Dioxide Anion Gap BUN Creatinine BUN/Creatinine Ratio Glucose POC Glucose (mg/dL) 147 H Calcium Total Bilirubin Creatine Kinase Total Protein Albumin Globulin Albumin/Globulin Ratio Lipase Urine Glucose (UA) 4+ H Ur Random Sodium <20 L 09/05/21 09/05/21 09/05/21 13:49 13:49 15:58 RBC 3.26 L Hgb 10.9 L Hct 29.6 L Sodium 116 L* 117 L* Chloride 85 L 89 L Carbon Dioxide Anion Gap BUN 34 H Creatinine 1.24 H BUN/Creatinine Ratio Glucose 137 H POC Glucose (mg/dL) Calcium Total Bilirubin 2.4 H Creatine Kinase Total Protein Albumin Globulin Albumin/Globulin Ratio Lipase 324 H Urine Glucose (UA) Ur Random Sodium 09/05/21 09/05/21 09/05/21 18:58 21:07 21:25 RBC Hgb Hct Sodium 119 L* Chloride 89 L Carbon Dioxide Anion Gap BUN Creatinine BUN/Creatinine Ratio Glucose POC Glucose (mg/dL) 122 H 122 H Calcium Total Bilirubin Creatine Kinase Total Protein Albumin Globulin Albumin/Globulin Ratio Lipase Urine Glucose (UA) Ur Random Sodium 09/05/21 09/06/21 09/06/21 23:22 03:43 03:43 RBC 2.87 L Hgb 9.5 L Hct 26.7 L Sodium 122 L Chloride 94 L Carbon Dioxide 20 L Anion Gap BUN 26 H Creatinine 1.13 H BUN/Creatinine Ratio Glucose POC Glucose (mg/dL) 113 H Calcium 8.3 L Total Bilirubin Creatine Kinase Total Protein Albumin Globulin Albumin/Globulin Ratio Lipase Urine Glucose (UA) Ur Random Sodium 09/06/21 09/06/21 09/06/21 03:43 10:10 15:23 RBC Hgb Hct Sodium 125 L 127 L Chloride Carbon Dioxide Anion Gap BUN 21 H Creatinine 1.11 H BUN/Creatinine Ratio Glucose POC Glucose (mg/dL) Calcium 8.2 L Total Bilirubin Creatine Kinase 138 H Total Protein Albumin Globulin Albumin/Globulin Ratio Lipase Urine Glucose (UA) Ur Random Sodium 09/06/21 09/06/21 09/06/21 15:54 17:25 21:02 RBC Hgb Hct Sodium Chloride Carbon Dioxide Anion Gap BUN Creatinine BUN/Creatinine Ratio Glucose POC Glucose (mg/dL) 104 H 124 H Calcium Total Bilirubin Creatine Kinase Total Protein Albumin Globulin Albumin/Globulin Ratio Lipase Urine Glucose (UA) Ur Random Sodium 30 L 09/07/21 09/07/21 09/07/21 11:55 12:54 17:04 RBC Hgb Hct Sodium 132 L Chloride Carbon Dioxide Anion Gap BUN Creatinine BUN/Creatinine Ratio Glucose 112 H POC Glucose (mg/dL) 141 H 142 H Calcium 8.1 L Total Bilirubin Creatine Kinase Total Protein Albumin Globulin Albumin/Globulin Ratio Lipase Urine Glucose (UA) Ur Random Sodium 09/07/21 09/08/21 09/08/21 21:10 05:37 07:11 RBC Hgb Hct Sodium 133 L Chloride Carbon Dioxide Anion Gap 9.10 L BUN 6.5 L Creatinine BUN/Creatinine Ratio 8.13 L Glucose POC Glucose (mg/dL) 170 H 104 H Calcium 7.6 L Total Bilirubin Creatine Kinase Total Protein 3.3 L Albumin 3.2 L Globulin 0.1 L Albumin/Globulin Ratio 32.00 H Lipase Urine Glucose (UA) Ur Random Sodium 09/08/21 12:04 RBC Hgb Hct Sodium Chloride Carbon Dioxide Anion Gap BUN Creatinine BUN/Creatinine Ratio Glucose POC Glucose (mg/dL) 128 H Calcium Total Bilirubin Creatine Kinase Total Protein Albumin Globulin Albumin/Globulin Ratio Lipase Urine Glucose (UA) Ur Random Sodium Assessment and Plan Assessment: Tremor of the bilateral uppers for the past 1-2 months (right > left). On examination felt mild resting tremor. Unknown exact cause. Patient has electrolyte/metabolic abnormality that can obscure picture. Cannot rule out Parkinson's disease. Generalized weakness due to hyponatremia secondary due to nausea vomiting Few episodes of hypontesive--currently normotensive Acute hyponatremia Diabetes mellitus History of coronary artery disease status post stent Proximal atrial fibrillation on anticoagulation Hypertension Hyperlipidemia Former smoker Plan: I ordered CT of the head. Ordered ionized calcium and HbA1c. Recommend MRI Brain as outpatient. I notified patient that cannot rule out Parkinson's disease but at same time patient has metabolic/electrolyte abnormality that can obscure patient. She wants to hold off on starting Sinement at this time for concern of Parkinson's. Nephrology is on board Please avoid any further hypotensive episode I will defer the management to primary team. Nephrology team is on board. PT and OT are consulted. We'll defer the rest of medical management to the primary team. Upon discharge, the patient needs to follow-up with neurologist as outpatient within 1-2 weeks. The plan is discussed with the patient and her nurse. Thank you for consultation. Kenney German M.D. Neuro-hospitalist Time with Patient: Greater than 30
--- NOTE | 2021-09-08 17:01 | CT ---
EXAMINATION TYPE: CT brain wo con DATE OF EXAM: 09/08/2021 COMPARISON: 10/02/2016 HISTORY: headaches and dizziness CT DLP: 961 mGycm Automated exposure control for dose reduction was used. Ventricles have normal size. There is no mass effect or midline shift. There is no sign of intracrani al hemorrhage. Calvarium is intact. There is normal aeration of the mastoids sinuses. IMPRESSION: Negative unenhanced head CT scan. No adverse change compared to old exam.
[2021-09-08 17:23] LABS: Glucose,Whole Blood 134 mg/dL (75-99)
[2021-09-08 20:20] LABS: Glucose,Whole Blood 189 mg/dL (75-99)
[2021-09-08] MEDS: ATORVASTATIN 80 MG TAB PO SCH (21:03)
[2021-09-08] MEDS: CLOPIDOGREL 75 MG TAB PO SCH (21:03)
[2021-09-08] MEDS: DOCUSATE 100 MG CAP PO SCH (21:03)
[2021-09-08] MEDS: MELATONIN 5 MG TABLET PO SCH (21:04)
[2021-09-09 04:42] VITALS: RESP 16
[2021-09-09 07:11] LABS: Glucose,Whole Blood 104 mg/dL (75-99)
[2021-09-09] MEDS: Dapagliflozin Propanediol [Farxiga] PO SCH (07:20)
[2021-09-09] MEDS: INSULIN ASPART (NovoLOG) 100 UNIT/ML VIAL SQ SCH (07:20)
--- NOTE | 2021-09-09 08:30 | P.DS ---
Providers Date of admission: 09/05/21 17:55 Attending physician: Rg Loo Consults: 09/05/21 17:05 Consult Physician Routine Consulting Provider: Barbara Mas Consult Reason/Comments: hyponatremia Do you want consulting provider notified?: Already Contacted 09/05/21 17:55 Consult Physician Routine Consulting Provider: Lonnie German Consult Reason/Comments: hyponatremia Do you want consulting provider notified?: Yes 09/08/21 09:21 Consult Physician Routine Consulting Provider: Kenney German Consult Reason/Comments: worsening tremor Do you want consulting provider notified?: Yes Primary care physician: Rg Loo - Discharge Diagnosis(es) (1) Hyponatremia Current Visit: Yes Status: Acute (2) Nausea & vomiting Current Visit: Yes Status: Acute (3) Dehydration Current Visit: No Status: Acute (4) Essential tremor Current Visit: Yes Status: Acute Hospital Course: This discharge summary 80-year-old white female essentially admitted for hyponatremia. This was evaluated by nephrology and pulmonology and did quite well she has been developing a tremor which was evaluated in neurology. The patient's hyponatremia was relatively resolved and she was tolerating diet appropriately. She's been struggling with a little bit of hypotension so we will withhold her antihypertensives at this time to follow for the next several weeks. The patient will need an MRI as an outpatient but is scheduled due to her weakness to go to rehab. Patient is to follow-up with me in about a week. Patient Condition at Discharge: Fair Plan - Discharge Summary Discharge Rx Participant: No New Discharge Prescriptions: New Docusate [Colace] 100 mg PO HS cap Melatonin 5 mg PO HS tablet Continue Nitroglycerin Sl Tabs [Nitrostat] 0.4 mg SUBLINGUAL Q5M PRN PRN Reason: Chest Pain Atorvastatin [Lipitor] 80 mg PO HS Aspirin [Adult Low Dose Aspirin EC] 81 mg PO DAILY Clopidogrel Bisulfate [Plavix] 75 mg PO HS Ezetimibe [Zetia] 10 mg PO DAILY Dapagliflozin Propanediol [Farxiga] 10 mg PO DAILY Yupelri 175mcg/3ml Loren 175 mg INHALATION RT-DAILY Discontinued atenoloL [Tenormin] 25 mg PO BID amLODIPine [Norvasc] 2.5 mg PO BID Discharge Medication List Aspirin [Adult Low Dose Aspirin EC] 81 mg PO DAILY 06/17/16 [History] Atorvastatin [Lipitor] 80 mg PO HS 06/17/16 [History] Nitroglycerin Sl Tabs [Nitrostat] 0.4 mg SUBLINGUAL Q5M PRN 06/17/16 [History] Clopidogrel Bisulfate [Plavix] 75 mg PO HS 10/02/16 [History] Dapagliflozin Propanediol [Farxiga] 10 mg PO DAILY 09/05/21 [History] Ezetimibe [Zetia] 10 mg PO DAILY 09/05/21 [History] Yupelri 175mcg/3ml Loren 175 mg INHALATION RT-DAILY 09/05/21 [History] Docusate [Colace] 100 mg PO HS cap 09/09/21 [Rx] Melatonin 5 mg PO HS tablet 09/09/21 [Rx] Follow up Appointment(s)/Referral(s): Rg Loo MD [Primary Care Provider] - 1 Week Discharge Disposition: TRANSFER TO SNF/ECF
[2021-09-09 08:40] VITALS: BP 97/58; PULSE 97; TEMP 98.4
[2021-09-09] MEDS: EZETIMIBE 10 MG TAB PO SCH (09:23)
[2021-09-09] MEDS: ASPIRIN 81 MG PO SCH (09:23)
[2021-09-09] MEDS: PANTOPRAZOLE 40 MG/10 ML VIAL IVP SCH (09:32)
[2021-09-09] MEDS: HEPARIN SODIUM,PORCINE/PF 5,000 UNIT/0.5 ML SYRINGE SQ SCH (09:32)
[2021-09-09 10:55] LABS: Basophils # (A) 0.04 X 10*3/uL (0.00-0.10); Basophils % (A) 0.8 %; Eosinophils % (A) 4.2 %; HCT 21.4 % (37.2-46.3); HGB 7.3 g/dL (12.0-15.0); Immature Grans, Automated 0.4 %; Lymphocytes # (A) 1.25 X 10*3/uL (0.90-5.00); Lymphocytes % (A) 26.2 %; MCH 32.4 pg (27.0-32.0); MCHC 34.1 g/dL (32.0-37.0); MCV 95.1 fL (80.0-97.0); Mean Platelet Volume 9.6 fL (9.5-12.2); Monocytes # (A) 0.47 X 10*3/uL (0.20-1.00); Monocytes % (A) 9.8 %; NRBC Per 100 WBC 0 /100 WBCS (0.0-0.0); Neutrophils % (A) 58.6 %; Platelet Count 199 X 10*3/uL (140-440); RBC 2.25 X 10*6/uL (4.10-5.20); RDW 12.9 % (11.5-14.5); WBC 4.78 X 10*3/uL (4.50-10.00)
--- NOTE | 2021-09-09 13:17 | P.PN ---
Subjective Progress Note Date: 09/09/21 The patient is seen at bedside and she feels her tremor is somewhat better today compared to yesterday. She stated for a while she has whossing sound in both ears for a while but denies visual changes, headache, focal weakness. Objective - Vital Signs Vital signs: Vital Signs Temp 98.4 F 09/09/21 07:30 Pulse 97 09/09/21 07:30 Resp 16 09/09/21 07:30 BP 97/58 09/09/21 07:30 Pulse Ox 97 09/09/21 07:30 Intake & Output 09/08/21 09/09/21 09/09/21 18:59 06:59 18:59 Other: Voiding Method Toilet Toilet Bedside Commode # Voids 1 1 # Bowel Movements 1 - Exam GENERAL: The patient is lying in bed and is not in acute distress. NEUROLOGICAL: Higher mental function: The patient is awake, alert, oriented to self, place and time. Patient is following commands. No aphasia and no neglect. Cranial nerves: The pupils are round, equal and reactive to light. Visual álvarez are full to confrontation throughout. Extraocular movement is intact no nystagmus is noted. Facial sensation is normal to touch throughout. The facial strength is normal throughout. No dysarthria is noted. Shoulder shrug is normal bilaterally. Motor: Gait is deferred. The strength is 5 over 5 throughout uppers while lowers is able to raise above gravity. Normal tone and bulk. Has minimal/subtle resting tremor of right hand. Cerebellum: Normal finger to nose bilaterally. Sensation: Sensation is normal to touch throughout. Reflexes (right/left): 1+ throughout. Plantars are downgoing bilaterally. SOME OF THE WORK-UP: HbA1c: 8.7 TSH: 0.477 Ionized calcium: 4.6 CT head is reported as negative unenhanced head CT scan. No adverse change compared to old exam. I personally reviewed image and agree with report. - Labs CBC & Chem 7: 09/09/21 06:01 09/08/21 05:37 Labs: Abnormal Lab Results - Last 24 Hours (Table) 09/08/21 09/08/21 09/08/21 Range/Units 07:11 17:19 17:27 RBC (4.10-5.20) X 10*6/uL Hgb (12.0-15.0) g/dL Hct (37.2-46.3) % MCH (27.0-32.0) pg POC Glucose (mg/dL) 134 H (75-99) mg/dL Hemoglobin A1c 8.7 H (0.0-6.0) % Iron 45 L (50-170) ug/dL Transferrin 199.0 L (204.0-354.0) mg/dL 09/08/21 09/09/21 09/09/21 Range/Units 20:09 06:01 07:09 RBC 2.25 L (4.10-5.20) X 10*6/uL Hgb 7.3 L (12.0-15.0) g/dL Hct 21.4 L (37.2-46.3) % MCH 32.4 H (27.0-32.0) pg POC Glucose (mg/dL) 189 H 104 H (75-99) mg/dL Hemoglobin A1c (0.0-6.0) % Iron (50-170) ug/dL Transferrin (204.0-354.0) mg/dL Assessment and Plan Assessment: Tremor of the bilateral uppers for the past 1-2 months (right > left). On examination felt mild resting tremor. Unknown exact cause. Patient has electrolyte/metabolic abnormality that can obscure picture. Cannot rule out Parkinson's disease.--she felt temor is better. Generalized weakness due to hyponatremia secondary due to nausea vomiting Few episodes of hypontesive--currently normotensive Acute hyponatremia Diabetes mellitus History of coronary artery disease status post stent Proximal atrial fibrillation on anticoagulation Hypertension Hyperlipidemia Former smoker Plan: Recommend MRI Brain as outpatient. I notified patient that cannot rule out Parkinson's disease but at same time patient has metabolic/electrolyte abnormal ity that can obscure patient. She wants to hold off on starting Sinement at this time for concern of Parkinson's. Recommend further work-up of her "whooshing sound sensation" in bilateral ears as outpatient. Patient is in agreement. Nephrology is on board Please avoid any further hypotensive episode I will defer the management to primary team. Nephrology team is on board. PT and OT are consulted. We'll defer the rest of medical management to the primary team. Upon discharge, the patient needs to follow-up with neurologist as outpatient within 1-2 weeks. The plan is discussed with the patient and her nurse. Kenney German M.D. Neuro-hospitalist Time with Patient: Less than 30
[2021-09-09 20:22] LABS: % Iron Saturation 21.81 (12.00-45.00); African American GFR (CKD) 81.1 (60.0-200.0); Albumin 3.3 g/dL (3.8-4.9); Albumin/Globulin Ratio 2.09 (1.60-3.17); Anion Gap 9.8 mmol/L (10.00-18.00); BUN/Creat Ratio 10.56 Ratio (12.00-20.00); Blood Urea Nitrogen 8.5 mg/dL (9.0-27.0); Calcium 7.8 mg/dL (8.7-10.3); Globulin 1.6 g/dL (1.6-3.3); Potassium 3.7 mmol/L (3.5-5.5); Total Bilirubin 0.9 mg/dL (0.30-1.20); Total Protein 4.9 g/dL (6.2-8.2)
== END 2021-09-09 10:45 | DRG 641 ==
LOC: EC 12:05 → 2SICU 17:55 → 5NMEDONC 09-06 16:04
PROVIDERS: ADMIT Family Medicine; ATTEND Family Medicine
DX: E87.1 Hypo-osmolality and hyponatremia (principal); I48.20 Chronic atrial fibrillation, unspecified; N17.9 Acute kidney failure, unspecified; G25.0 Essential tremor; I12.9 Hypertensive chronic kidney disease with stage 1 through stage 4 chronic kidney disease, or unspecified chronic kidney disease; E86.1 Hypovolemia; I25.10 Atherosclerotic heart disease of native coronary artery without angina pectoris; I48.0 Paroxysmal atrial fibrillation; M79.604 Pain in right leg; K29.00 Acute gastritis without bleeding; M79.605 Pain in left leg; N18.9 Chronic kidney disease, unspecified; D63.1 Anemia in chronic kidney disease; E11.22 Type 2 diabetes mellitus with diabetic chronic kidney disease; E11.51 Type 2 diabetes mellitus with diabetic peripheral angiopathy without gangrene; E11.65 Type 2 diabetes mellitus with hyperglycemia; E78.5 Hyperlipidemia, unspecified; I83.90 Asymptomatic varicose veins of unspecified lower extremity; Z66 Do not resuscitate; Z79.01 Long term (current) use of anticoagulants; Z79.82 Long term (current) use of aspirin; Z79.899 Other long term (current) drug therapy; Z79.84 Long term (current) use of oral hypoglycemic drugs; Z87.891 Personal history of nicotine dependence; Z95.1 Presence of aortocoronary bypass graft; Z95.5 Presence of coronary angioplasty implant and graft; Z28.310 Unvaccinated for COVID-19; Z88.2 Allergy status to sulfonamides; Z88.1 Allergy status to other antibiotic agents; Z91.040 Latex allergy status; Z80.9 Family history of malignant neoplasm, unspecified; Z86.14 Personal history of Methicillin resistant Staphylococcus aureus infection; Z98.890 Other specified postprocedural states; Z90.49 Acquired absence of other specified parts of digestive tract
CPT/HCPCS: 36415; 70450; 71045; 74018; 80048; 80051; 80053; 81003; 82150; 82330; 82533; 82550; 82728; 83036; 83540; 83550; 83690; 83735; 83935; 84295; 84300; 84443; 84484; 85025; 85379; 87635; 93005; 93970; 96361; 96374; 99285

== ENCOUNTER → 2022-08-31 | Outpatient (CLI) | payer MEDICARE, BC ==
--- NOTE | 2022-09-09 08:04 | CE ---
CARDIAC ELECTROPHYSIOLOGY REPORT STUDY PERFORMED: A 48-hour monitor. FINDINGS: The patient was monitored for 48 hours. The baseline rhythm appeared to be sinus mechanism. The patient did have multiple PVCs and PACs noted. The patient did have multiple episodes of atrial tachycardia with longest of 17 beats. No significant sinus pause or sinus arrest seen. CONCLUSION: 1. This is a 48-hour Holter monitor. 2. The baseline rhythm appeared to be sinus mechanism. 3. The patient did have multiple episodes of SVT/atrial tachycardia noted with the longest of 17 beats. 4. The patient reported symptoms of palpitations/heart racing and the symptoms were associated with sinus rhythm as with PVCs. MMODL / IJN: [id number] /
== END | disposition home or self-care (01) ==
LOC: RADECHMAIN 12:26
PROVIDERS: ATTEND Family Medicine
DX: R00.2 Palpitations (principal)
CPT/HCPCS: 93225; 93226

== ENCOUNTER 2023-02-26 15:51 | Emergency (ER) | payer MEDICARE, BC ==
[2023-02-26 16:10] VITALS: RESP 18; TEMP 98.2
--- NOTE | 2023-02-26 16:50 | XR ---
EXAMINATION TYPE: XR chest 2V DATE OF EXAM: 02/26/2023 4:45 PM CLINICAL INDICATION:Female, 82 years old with history of Increased blood pressure. COMPARISON: Chest radiographs from TECHNIQUE: XR chest 2V Frontal and lateral views of the chest. FINDINGS: Lungs/Pleura: Hazy right lower lung airspace opacity is identified. No evidence of pleural effusion o r pneumothorax. Pulmonary vascularity: Unremarkable. Heart/mediastinum: Cardiomediastinal silhouette is unremarkable. Musculoskeletal: No acute osseous pathology. IMPRESSION: Right lower lung airspace disease which may represent developing pneumonia.
[2023-02-26 16:54] LABS: Basophils % (A) 1 %; Eosinophils # (A) 0.2 k/uL (0-0.7); Eosinophils % (A) 4 %; HCT 47.8 % (34.0-46.0); HGB 16.1 gm/dL (11.4-16.0); Lymphocytes # (A) 1.4 k/uL (1.0-4.8); Lymphocytes % (A) 25 %; MCH 32.7 pg (25.0-35.0); MCHC 33.7 g/dL (31.0-37.0); MCV 97.1 fL (80.0-100.0); Mean Platelet Volume 7.8; Monocytes # (A) 0.3 k/uL (0-1.0); Monocytes % (A) 5 %; Neutrophils # (A) 3.4 k/uL (1.3-7.7); Neutrophils % (A) 62 %; Platelet Count 182 k/uL (150-450); RBC 4.92 m/uL (3.80-5.40); RDW 12.8 % (11.5-15.5); WBC 5.4 k/uL (3.8-10.6)
[2023-02-26 17:03] LABS: ALT 32 U/L (4-34); AST 33 U/L (14-36); African American GFR (CKD) >90 (>60 ml/min/1.73 sqM); Albumin 4.3 g/dL (3.5-5.0); Alkaline Phosphatase 72 U/L (38-126); Anion Gap 9 mmol/L; Blood Urea Nitrogen 20 mg/dL (7-17); Calcium 9.4 mg/dL (8.4-10.2); Carbon Dioxide 25 mmol/L (22-30); Chloride 99 mmol/L (98-107); Creatine Kinase 34 U/L (30-135); Glucose 110 mg/dL (74-99); Lipase 371 U/L (23-300); Magnesium 2.1 mg/dL (1.6-2.3); Non-African American GFR(CKD) 81 (>60 ml/min/1.73 sqM); Potassium 4.4 mmol/L (3.5-5.1); Sodium 133 mmol/L (137-145); Total Bilirubin 1.8 mg/dL (0.2-1.3); Total Protein 7.1 g/dL (6.3-8.2)
[2023-02-26 17:55] LABS: Appearance,Urine Clear (Clear); Bilirubin,Urine Negative (Negative); Blood,Urine Negative (Negative); Color,Urine Colorless; Glucose,Urine (UA) 4+ (Negative); Ketones,Urine Negative (Negative); Leukocyte Esterase,Urine Negative (Negative); Nitrite,Urine Negative (Negative); Protein,Urine Negative (Negative); Specific Gravity,Urine 1.007 (1.001-1.035); Urobilinogen,Urine <2.0 mg/dL (<2.0)
--- NOTE | 2023-02-26 18:05 | ED ---
General Adult HPI - General Chief complaint: Recheck/Abnormal Lab/Rx Stated complaint: Hypertension Time Seen by Provider: 02/26/23 15:51 Source: patient, EMS, RN notes reviewed Mode of arrival: EMS Limitations: no limitations - History of Present Illness Initial comments: 82-year-old female history of hypertension states her blood pressure is been going up persistently over last week or so she denies any chest pain fevers chills nausea vomiting she has had some diarrhea however. She does check her blood pressure at home. She states it was over 200 at home systolic. She does have a history of type 2 diabetes heart disease. She has had a cholecystectomy in the past. He also states she's been having some palpitations. No other current symptoms no modifying factors no abdominal pain no dysuria hematuria. - Related Data Home Medications Medication Instructions Recorded Confirmed Atorvastatin [Lipitor] 80 mg PO HS 06/17/16 02/26/23 Clopidogrel Bisulfate [Plavix] 75 mg PO HS 10/02/16 02/26/23 Dapagliflozin Propanediol [Farxiga] 10 mg PO DAILY 09/05/21 02/26/23 Ezetimibe [Zetia] 10 mg PO DAILY 09/05/21 02/26/23 Cholecalciferol [Vitamin D3 (25 50 mcg PO W/LUNCH 02/26/23 02/26/23 Mcg = 1000 Iu)] Multivitamins, Thera [Multivitamin 2 tab PO W/LUNCH 02/26/23 02/26/23 (formulary)] Valsartan [Diovan] 80 mg PO HS 02/26/23 02/26/23 Valsartan [Diovan] 160 mg PO DAILY 02/26/23 02/26/23 Vitamin C/Biotin [Hair, Skin and 2 tab PO W/LUNCH 02/26/23 02/26/23 Nails Chew] atenoloL [Tenormin] 25 mg PO DAILY 02/26/23 02/26/23 atenoloL [Tenormin] 50 mg PO DAILY@1500 02/26/23 02/26/23 Allergies Allergy/AdvReac Type Severity Reaction Status Date / Time latex Allergy Rash/Hives Verified 02/26/23 17:28 minocycline AdvReac Nausea & Verified 02/26/23 17:28 Vomiting & Diarrhea sulfamethoxazole AdvReac Nausea & Verified 02/26/23 17:28 [From Bactrim] Vomiting & Diarrhea trimethoprim [From Bactrim] AdvReac Nausea & Verified 02/26/23 17:28 Vomiting & Diarrhea Review of Systems ROS Statement: Those systems with pertinent positive or pertinent negative responses have been documented in the HPI. ROS Other: All systems not noted in ROS Statement are negative. Past Medical History Past Medical History: Atrial Fibrillation, Coronary Artery Disease (CAD), Chest Pain / Angina, Hypertension, Osteoarthritis (OA) Additional Past Medical History / Comment(s): hx varicose veins, lower lobe of lung "collapsed", swelling lt ankle History of Any Multi-Drug Resistant Organisms: MRSA Date of last positivie culture/infection: 11/18/16 MDRO Source:: Head Past Surgical History: Breast Surgery, Cholecystectomy, Heart Catheterization With Stent, Tubal Ligation Additional Past Surgical History / Comment(s): three cardiac stents, rt breast lumpectomy Past Anesthesia/Blood Transfusion Reactions: Motion Sickness, Postoperative Nausea & Vomiting (PONV) Date of Last Stent Placement:: 2020 Past Psychological History: No Psychological Hx Reported Smoking Status: Former smoker Past Alcohol Use History: None Reported Past Drug Use History: None Reported - Past Family History Mother Family Medical History: No Reported History Brother(s) Family Medical History: Cancer General Exam - General Exam Comments Initial Comments: This is a well-developed well-nourished awake alert oriented 4 female Limitations: no limitations General appearance: alert, in no apparent distress Head exam: Present: atraumatic, normocephalic, normal inspection Eye exam: Present: normal appearance, PERRL, EOMI. Absent: scleral icterus, conjunctival injection, periorbital swelling ENT exam: Present: mucous membranes dry Neck exam: Present: normal inspection, full ROM, other (No stridor JVD or bruits). Absent: tenderness, meningismus, lymphadenopathy Respiratory exam: Present: normal lung sounds bilaterally. Absent: respiratory distress, wheezes, rales, rhonchi, stridor Cardiovascular Exam: Present: regular rate, normal rhythm, normal heart sounds. Absent: systolic murmur, diastolic murmur, rubs, gallop, clicks GI/Abdominal exam: Present: soft, normal bowel sounds. Absent: distended, tenderness, guarding, rebound, rigid, bruit, pulsatile mass Extremities exam: Present: normal inspection, full ROM, normal capillary refill. Absent: tenderness, pedal edema, joint swelling, calf tenderness Back exam: Present: normal inspection Neurological exam: Present: alert, oriented X3, CN II-XII intact Psychiatric exam: Present: normal affect, normal mood Skin exam: Present: warm, dry, intact, normal color. Absent: rash Course Vital Signs 02/26/23 02/26/23 02/26/23 15:57 16:55 18:07 Temperature 98.2 F Pulse Rate 83 78 74 Respiratory 18 18 18 Rate Blood Pressure 183/80 146/89 180/78 O2 Sat by Pulse 99 98 99 Oximetry EKG Findings - EKG Results: EKG: interpreted by FERCHOD (EKG interpreted by me shows sinus rhythm a 79. Interval 164 QRS duration 92 QT since QTC 373/[address] T-wave configuration) Medical Decision Making - Medical Decision Making I did discuss findings with the patient patient does demonstrate tense of mildly elevated lipase and bilirubin. She has had a history of cholecystectomy in the past she has had a history of pancreatitis in the past. No evidence of any obstructive processes seen on my interpretation of the ultrasound. Patient is pain-free and symptom-free her blood pressure is improved after IV fluids she'll be discharged to follow-up with her doctor regarding any change in medications. She was encouraged to increase her oral fluids.Was pt. sent in by a medical professional or institution ([facility], [employer], urgent care, hospital, or shelter...) When possible be specific @ -No Did you speak to anyone other than the patient for history (EMS, parent, family, police, friend...)? What history was obtained from this source @ -Paramedics upon arrival Did you review nursing and triage notes (agree or disagree)? Why? @ -I reviewed and agree with nursing and triage notes Were old charts reviewed (outside hosp., previous admission, EMS record, old EKG, old radiological studies, urgent care reports/EKG's, shelter records)? Report findings @ -Previous labs old charts were reviewed Differential Diagnosis (chest pain, altered mental status, abdominal pain women, abdominal pain men, vaginal bleeding, weakness, fever, dyspnea, syncope, headache, dizziness, GI bleed, back pain, seizure, CVA, palpatations, mental health, musculoskeletal)? @ -Accelerated hypertension EKG interpreted by me (3pts min.). @ -As above EKG interpreted by me, sinus rhythm of 79 MO interval 164 QRS duration 92 QT since QTC 373/[address]-T wave configuration X-rays interpreted by me (1pt min.). @ -X-ray interpreted B no acute process seen. CT interpreted by me (1pt min.). @ -None done U/S interpreted by me (1pt. min.). @ -Ultrasound of the upper abdomen poorly visualized pancreas however no evidence of acute processes no acute obstruction seen this was interpreted by me What testing was considered but not performed or refused? (CT, X-rays, U/S, labs)? Why? @ -None What meds were considered but not given or refused? Why? @ -None Did you discuss the management of the patient with other professionals (professionals i.e. , PA, FISHERIES BIOLOGIST, lab, RT, psych nurse, social sciences research scientist, tax manager public, teacher, traffic division commanding officer, manager of case management)? Give summary @ -No Was smoking cessation discussed for >3mins.? @ -No Was critical care preformed (if so, how long)? @ -No Were there social determinants of health that impacted care today? How? (Homelessness, low income, unemployed, alcoholism, drug addiction, transportation, low edu. Level, literacy, decrease access to med. care, care home, rehab)? @ -No Was there de-escalation of care discussed even if they declined (Discuss DNR or withdrawal of care, Hospice)? DNR status @ -No What co-morbidities impacted this encounter? (DM, HTN, Smoking, COPD, CAD, Cancer, CVA, ARF, Chemo, Hep., AIDS, mental health diagnosis, sleep apnea, morbid obesity)? @ -History of pancreatitis history of cholecystectomy, hypertension Was patient admitted / discharged? Hospital course, mention meds given and route, prescriptions, significant lab abnormalities, going to OR and other pertinent info. @ -hospital course patient was discharged home with instructions increase oral fluids and follow-up with her doctor for any adjustments in medications. Undiagnosed new problem with uncertain prognosis? @ -No Drug Therapy requiring intensive monitoring for toxicity (Heparin, Nitro, Insulin, Cardizem)? @ -No Were any procedures done? @ -No Diagnosis/symptom? @ -Hypertension, dehydration, elevated lipase, elevated bilirubin Acute, or Chronic, or Acute on Chronic? @ -Acute on chronic Uncomplicated (without systemic symptoms) or Complicated (systemic symptoms)? @ -default Side effects of treatment? @ -No Exacerbation, Progression, or Severe Exacerbation? @ -No Poses a threat to life or bodily function? How? (Chest pain, [place], [place], pneumonia, PE, COPD, DKA, ARF, appy, cholecystitis, CVA, Diverticulitis, Homicidal, Suicidal, threat to staff... and all critical care pts) @ -No - Lab Data Result diagrams: 02/26/23 16:01 02/26/23 16:01 Lab Results 02/26/23 02/26/23 02/26/23 Range/Units 16:01 16:01 17:43 WBC 5.4 (3.8-10.6) k/uL RBC 4.92 (3.80-5.40) m/uL Hgb 16.1 H (11.4-16.0) gm/dL Hct 47.8 H (34.0-46.0) % MCV 97.1 (80.0-100.0) fL MCH 32.7 (25.0-35.0) pg MCHC 33.7 (31.0-37.0) g/dL RDW 12.8 (11.5-15.5) % Plt Count 182 (150-450) k/uL MPV 7.8 Neutrophils % 62 % Lymphocytes % 25 % Monocytes % 5 % Eosinophils % 4 % Basophils % 1 % Neutrophils # 3.4 (1.3-7.7) k/uL Lymphocytes # 1.4 (1.0-4.8) k/uL Monocytes # 0.3 (0-1.0) k/uL Eosinophils # 0.2 (0-0.7) k/uL Basophils # 0.0 (0-0.2) k/uL Sodium 133 L (137-145) mmol/L Potassium 4.4 (3.5-5.1) mmol/L Chloride 99 (98-107) mmol/L Carbon Dioxide 25 (22-30) mmol/L Anion Gap 9 mmol/L BUN 20 H (7-17) mg/dL Creatinine 0.71 (0.52-1.04) mg/dL Est GFR (CKD-EPI)AfAm >90 (>60 ml/min/1.73 sqM) Est GFR (CKD-EPI)NonAf 81 (>60 ml/min/1.73 sqM) Glucose 110 H (74-99) mg/dL Calcium 9.4 (8.4-10.2) mg/dL Magnesium 2.1 (1.6-2.3) mg/dL Total Bilirubin 1.8 H (0.2-1.3) mg/dL AST 33 (14-36) U/L ALT 32 (4-34) U/L Alkaline Phosphatase 72 (38-126) U/L Creatine Kinase 34 (30-135) U/L Total Protein 7.1 (6.3-8.2) g/dL Albumin 4.3 (3.5-5.0) g/dL Lipase 371 H (23-300) U/L TSH 1.110 (0.465-4.680) mIU/L Urine Color Colorless Urine Appearance Clear (Clear) Urine pH 6.0 (5.0-8.0) Ur Specific [place] 1.007 (1.001-1.035) Urine Protein Negative (Negative) Urine Glucose (UA) 4+ H (Negative) Urine Ketones Negative (Negative) Urine Blood Negative (Negative) Urine Nitrite Negative (Negative) Urine Bilirubin Negative (Negative) Urine Urobilinogen <2.0 (<2.0) mg/dL Ur Leukocyte Esterase Negative (Negative) - Radiology Data Interpreted by me: Chest x-ray interpreted by me no acute processes Disposition Clinical Impression: Hypertension, Dehydration, Elevated lipase, Elevated bilirubin Disposition: HOME SELF-CARE Condition: Good Instructions (If sedation given, give patient instructions): Hypertension in the Older Adult (ED), Dehydration (ED) Is patient prescribed a controlled substance at d/c from ED?: No Referrals: Rg Loo MD [Primary Care Provider] - 1-2 days Decision Date: 02/26/23 Decision Time: 19:15
[2023-02-26] MEDS: ACETAMINOPHEN TAB 325 MG TAB PO STA (18:06)
[2023-02-26] MEDS: SODIUM CHLORIDE 0.9% 1,000 ML IV STA (18:06)
[2023-02-26] MEDS: SODIUM CHLORIDE 0.9% 500 ML 500 ML IV STA (18:06)
--- NOTE | 2023-02-26 18:53 | US ---
EXAMINATION TYPE: US abdomen limited DATE OF EXAM: 02/26/2023 COMPARISON: US, CT 2016 CLINICAL INDICATION: Female, 82 years old with history of Evaluation, bile duct and pancreatic head; Hx cholecystectomy. TECHNIQUE: Multiple sonographic images of the right upper quadrant are obtained. FINDINGS: EXAM MEASUREMENTS: Liver Length: 13.4 cm Gallbladder Wall: Surgically absent CBD: 0.82 cm Right Kidney: 11.0 x 5.2 x 4.3 cm SKI MOLDER NOTES: Exam is limited due to great amount of overlying bowel gas* Pancreas: Limited due to gas. Liver: Coarse in echotexture. Gallbladder: Surgically absent Evidence for sonographic Ledbetter's sign: No CBD: Largest measurement = 0.82 cm, which is within normal limits due to postcholecystectomy status Right Kidney: No hydronephrosis or masses seen IMPRESSION: No evidence of acute process.
[2023-02-26 20:29] VITALS: BP 167/77; PULSE 81
== END 2023-02-26 20:20 | disposition home or self-care (01) ==
LOC: EC 15:51
DX: J98.4 Other disorders of lung (principal); E86.0 Dehydration; E80.7 Disorder of bilirubin metabolism, unspecified; I10 Essential (primary) hypertension; E11.9 Type 2 diabetes mellitus without complications; I25.10 Atherosclerotic heart disease of native coronary artery without angina pectoris; I48.91 Unspecified atrial fibrillation; M19.90 Unspecified osteoarthritis, unspecified site; Z79.02 Long term (current) use of antithrombotics/antiplatelets; Z79.84 Long term (current) use of oral hypoglycemic drugs; Z79.899 Other long term (current) drug therapy; Z87.891 Personal history of nicotine dependence; Z88.2 Allergy status to sulfonamides; Z91.040 Latex allergy status; Z88.8 Allergy status to other drugs, medicaments and biological substances; Z90.49 Acquired absence of other specified parts of digestive tract
CPT/HCPCS: 36415; 71046; 76705; 80053; 81003; 82550; 83690; 83735; 84443; 85025; 93005; 96360; 96361; 99285

== ENCOUNTER → 2023-04-22 | Outpatient (CLI) | payer MEDICARE, BC ==
[2023-04-22 15:29] LABS: African American GFR (CKD) 87 (>60 ml/min/1.73 sqM); Blood Urea Nitrogen 20 mg/dL (7-17); Non-African American GFR(CKD) 76 (>60 ml/min/1.73 sqM)
--- NOTE | 2023-04-23 09:36 | CT ---
EXAMINATION TYPE: CT chest w con CT DLP: 257.1 mGycm, Automated exposure control for dose reduction was used. DATE OF EXAM: 04/22/2023 3:53 PM COMPARISON: 10/21/2022. 05/27/2020 CT CLINICAL INDICATION:Female, 82 years old with history of R22.2 LOCALIZED SWELLING, MASS AND LUMP, JUAN NK; PHH, Lung nodule. SOB x3mo. TECHNIQUE: Multiple axial images were obtained through the chest. Sagittal and coronal reformats were created for review. Contrast used:90 ml mL of Isovue 300 with IV Contrast (None if empty) Oral contrast used: (None if empty) FINDINGS: LUNGS/ PLEURA: Wedge-shaped area of consolidation within the right lower lobe posteriorly measuring 5 .8 x 2.0 cm on axial imaging. Similar to prior in 2020. There is calcification in the region of the p leura along this area. New from prior Right upper lobe medial pulmonary nodule measuring up to 8 x 6 mm. No focal consolidation, pneumothorax or pleural effusion. AIRWAY: Patent and unremarkable. HEART: Size within normal limits. MEDIASTINUM: No gross evidence of adenopathy. VASCULATURE: Atherosclerotic calcifications are present throughout the aorta and its branches. MUSCULOSKELETAL: Mild disc degeneration changes are present throughout the thoracolumbar spine. SOFT TISSUES/LYMPH NODES: Unremarkable. LOWER NECK: No significant findings. UPPER ABDOMEN: Right upper quadrant cholecystectomy clips. IMPRESSION: 1. There is an area of pleural calcification with adjacent consolidation change likely representing cicatrisation atelectasis. Correlate for asbestosis exposure/prior surgical intervention. 2. New from 05/27/2020. Left upper lobe medial pulmonary nodule measuring 8 x 6 mm. Follow-up in 6-12 months recommended to ensure stability/resolution. Follow up recommendations for incidental pulmonary nodules, if there are any, are per [employer] or [employer].
== END | disposition home or self-care (01) ==
LOC: RADCTMAIN 15:01
PROVIDERS: ATTEND Family Medicine
DX: J92.9 Pleural plaque without asbestos (principal); R91.1 Solitary pulmonary nodule
CPT/HCPCS: 82565; 84520; 71260; 36415; Q9967

== ENCOUNTER → 2023-11-04 | Outpatient (CLI) | payer MEDICARE, BC ==
[2023-11-04 10:46] LABS: African American GFR (CKD) 90 (>60 ml/min/1.73 sqM); Blood Urea Nitrogen 25 mg/dL (7-17); Non-African American GFR(CKD) 78 (>60 ml/min/1.73 sqM)
--- NOTE | 2023-11-04 12:44 | CT ---
EXAMINATION TYPE: CT chest w con DATE OF EXAM: 11/04/2023 COMPARISON: 04/22/2023 HISTORY: f/u lung nodule CT DLP: 471 mGycm Automated exposure control for dose reduction was used. CONTRAST: CT scan of the chest is performed with IV Contrast, patient injected with 100 mL of Isovue 300. FINDINGS: LUNGS: Pleural based calcification right lower lobe with pleural-based mass and disorganized vasculat ure likely secondary to asbestosis with the rounded atelectasis. Correlate clinically. Previously not ed right upper lobe pulmonary nodule appears smaller than on prior study and currently measures 5 mm versus 6 x 8 mm previously. No additional nodules seen. Mild lower lobe subpleural fibrosis. MEDIASTINUM: There are no greater than 1 cm hilar or mediastinal lymph nodes. No pericardial effusi on is seen. Thoracic aorta is of normal caliber. The heart is not enlarged. UPPER ABDOMEN: No significant abnormality appreciated. OTHER: No additional significant abnormality is seen. IMPRESSION: 1.Pleural based calcification right lower lobe with pleural-based mass and disorganized vasculature l ikely secondary to asbestosis with the rounded atelectasis. Correlate clinically. 2. Annual follow-up for 5 mm right upper lobe pulmonary nodule.
== END | disposition home or self-care (01) ==
LOC: RADCTMAIN 09:59
PROVIDERS: ATTEND Internal Medicine Critical Care Medicine
DX: R91.1 Solitary pulmonary nodule (principal); J94.8 Other specified pleural conditions
CPT/HCPCS: 82565; 84520; 71260; 36415; Q9967

== ENCOUNTER 2023-12-02 14:21 | Inpatient (IN) | payer MEDICARE, BC ==
[2023-12-02 15:56] LABS: Basophils # (A) 0.1 k/uL (0-0.2); Basophils % (A) 1 %; Eosinophils % (A) 8 %; HCT 50.3 % (34.0-46.0); HGB 16.2 gm/dL (11.4-16.0); Lymphocytes # (A) 1.5 k/uL (1.0-4.8); Lymphocytes % (A) 12 %; MCH 32.2 pg (25.0-35.0); MCHC 32.3 g/dL (31.0-37.0); MCV 99.8 fL (80.0-100.0); Mean Platelet Volume 7.3; Monocytes # (A) 0.7 k/uL (0-1.0); Monocytes % (A) 6 %; Neutrophils # (A) 8.6 k/uL (1.3-7.7); Neutrophils % (A) 71 %; Platelet Count 226 k/uL (150-450); RBC 5.04 m/uL (3.80-5.40); RDW 12.6 % (11.5-15.5)
[2023-12-02 16:15] LABS: ALT 25 U/L (4-34); African American GFR (CKD) >90 (>60 ml/min/1.73 sqM); Anion Gap 8 mmol/L; Blood Urea Nitrogen 22 mg/dL (7-17); Calcium 9.8 mg/dL (8.4-10.2); Carbon Dioxide 25 mmol/L (22-30); Chloride 103 mmol/L (98-107); Glucose 104 mg/dL (74-99); Non-African American GFR(CKD) 87 (>60 ml/min/1.73 sqM); Sodium 136 mmol/L (137-145)
[2023-12-02 16:23] LABS: NT-Pro-B-Type Natriuretic Pept 434 pg/mL
--- NOTE | 2023-12-02 16:25 | XR ---
EXAMINATION TYPE: XR chest 2V DATE OF EXAM: 12/02/2023 COMPARISON: 02/26/2023 HISTORY: Shortness of breath TECHNIQUE: Frontal and lateral views of the chest are obtained. FINDINGS: Scattered senescent parenchymal changes noted. Hyperinflation compatible with COPD. Patchy right perihilar opacity with ill-defined areas of nodularity. Consider CT correlation. Heart size is stable. Mediastinal structures are stable and grossly unremarkable. No evidence for hilar prominence. Degenerative changes dorsal spine. IMPRESSION: 1. Patchy right perihilar opacity with ill-defined areas of nodularity. Consider CT correlation.
--- NOTE | 2023-12-02 16:35 | ED ---
SOB HPI - General Chief Complaint: Shortness of Breath Stated Complaint: SOB Time Seen by Provider: 12/02/23 16:31 Source: patient, RN notes reviewed Mode of arrival: wheelchair Limitations: no limitations - History of Present Illness Initial Comments: 83 year old female with PMH of atrial fibrillation, HTN, DM type 2, CAD, and COPD presenting with shortness of breath x 2 months with associated chest congestion. states she has seen her PCP for this where they have placed her on several different courses of antibiotics in an attempt to allieviate symptoms but she states they have not helped. States she is having a constant productive cough. Shortness of breath is worse with exertion. Denies chest pain, abdominal pain, fevers, or chills. She is currently on cefuroxime. She is a former smoker. She is on Eliquis for a fib. Denies at home oxygen - Related Data Home Medications Medication Instructions Recorded Confirmed Atorvastatin [Lipitor] 80 mg PO HS 06/17/16 02/26/23 Clopidogrel Bisulfate [Plavix] 75 mg PO HS 10/02/16 02/26/23 Dapagliflozin Propanediol [Farxiga] 10 mg PO DAILY 09/05/21 02/26/23 Ezetimibe [Zetia] 10 mg PO DAILY 09/05/21 02/26/23 Cholecalciferol [Vitamin D3 (25 50 mcg PO W/LUNCH 02/26/23 02/26/23 Mcg = 1000 Iu)] Multivitamins, Thera [Multivitamin 2 tab PO W/LUNCH 02/26/23 02/26/23 (formulary)] Valsartan [Diovan] 80 mg PO HS 02/26/23 02/26/23 Valsartan [Diovan] 160 mg PO DAILY 02/26/23 02/26/23 Vitamin C/Biotin [Hair, Skin and 2 tab PO W/LUNCH 02/26/23 02/26/23 Nails Chew] atenoloL [Tenormin] 25 mg PO DAILY 02/26/23 02/26/23 atenoloL [Tenormin] 50 mg PO DAILY@1500 02/26/23 02/26/23 Allergies Allergy/AdvReac Type Severity Reaction Status Date / Time latex Allergy Rash/Hives Verified 12/02/23 14:47 minocycline AdvReac Nausea & Verified 12/02/23 14:47 Vomiting & Diarrhea sulfamethoxazole AdvReac Nausea & Verified 12/02/23 14:47 [From Bactrim] Vomiting & Diarrhea trimethoprim [From Bactrim] AdvReac Nausea & Verified 12/02/23 14:47 Vomiting & Diarrhea Review of Systems ROS Statement: Those systems with pertinent positive or pertinent negative responses have been documented in the HPI. ROS Other: All systems not noted in ROS Statement are negative. Past Medical History Past Medical History: Atrial Fibrillation, Coronary Artery Disease (CAD), Chest Pain / Angina, Hypertension, Osteoarthritis (OA) Additional Past Medical History / Comment(s): hx varicose veins, lower lobe of lung "collapsed", swelling lt ankle History of Any Multi-Drug Resistant Organisms: MRSA Date of last positivie culture/infection: 11/18/16 MDRO Source:: Head Past Surgical History: Breast Surgery, Cholecystectomy, Heart Catheterization With Stent, Tubal Ligation Additional Past Surgical History / Comment(s): three cardiac stents, rt breast lumpectomy Past Anesthesia/Blood Transfusion Reactions: Motion Sickness, Postoperative Nausea & Vomiting (PONV) Date of Last Stent Placement:: 2020 Past Psychological History: No Psychological Hx Reported Smoking Status: Former smoker Past Alcohol Use History: None Reported Past Drug Use History: None Reported - Past Family History Mother Family Medical History: No Reported History Brother(s) Family Medical History: Cancer General Exam Limitations: no limitations General appearance: alert, in no apparent distress Head exam: Present: atraumatic, normocephalic, normal inspection Eye exam: Present: normal appearance, PERRL, EOMI. Absent: scleral icterus, conjunctival injection, periorbital swelling Neck exam: Present: normal inspection. Absent: tenderness, meningismus, lymphadenopathy Respiratory exam: Present: wheezes (inspiratory and expiratory wheezing in all lung álvarez b/l). Absent: normal lung sounds bilaterally, respiratory distress, rales, rhonchi, stridor Cardiovascular Exam: Present: regular rate, irregular rhythm, normal heart soun ds. Absent: systolic murmur, diastolic murmur, rubs, gallop, clicks GI/Abdominal exam: Present: soft, normal bowel sounds. Absent: distended, tenderness, guarding, rebound, rigid Extremities exam: Present: normal inspection, full ROM, normal capillary refill. Absent: tenderness, pedal edema, joint swelling, calf tenderness Neurological exam: Present: alert, oriented X3 Psychiatric exam: Present: normal affect, normal mood Skin exam: Present: warm, dry, intact, normal color. Absent: rash Course Vital Signs 12/02/23 12/02/23 12/02/23 14:45 15:47 16:47 Temperature 98.3 F Pulse Rate 81 79 83 Respiratory 18 16 16 Rate Blood Pressure 133/74 152/70 156/78 O2 Sat by Pulse 94 L 95 97 Oximetry 12/02/23 17:47 Temperature Pulse Rate 76 Respiratory 18 Rate Blood Pressure O2 Sat by Pulse 96 Oximetry Medical Decision Making - Medical Decision Making Was pt. sent in by a medical professional or institution (, PA, SUCCESS COACH, urgent care, hospital, or alf...) When possible be specific @ -No Did you speak to anyone other than the patient for history (EMS, parent, family, police, friend...)? What history was obtained from this source @ -No Did you review nursing and triage notes (agree or disagree)? Why? @ -I reviewed and agree with nursing and triage notes Were old charts reviewed (outside hosp., previous admission, EMS record, old EKG, old radiological studies, urgent care reports/EKG's, alf records)? 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 @ -Differential Chest Pain: Pneumonia, bronchitis, pleural effusion, pneumothorax, stable Angina, Unstable Angina, STEMI, NSTEMI Aortic Dissection, Musculoskeletal, Esophageal Spasm GERD, Cholecystitis, Pancreatitis, Zoster, this is not meant to be an all-inclusive list. EKG interpreted by me (3pts min.). @ -As above X-rays interpreted by me (1pt min.). @ -Chest x-ray reveals patchy right perihilar opacities with ill-defined areas o f nodularity CT interpreted by me (1pt min.). @ -None done U/S interpreted by me (1pt. min.). @ -None done What testing was considered but not performed or refused? (CT, X-rays, U/S, labs)? Why? @ -None What meds were considered but not given or refused? Why? @ -None Did you discuss the management of the patient with other professionals (professionals i.e. , PA, SUCCESS COACH, lab, RT, psych nurse, social work case manager, servicing manager, teacher, protection officer, window caser)? Give summary @ -I spoke with Dr. Pizano who accepts admission at this time for pneumonia with failed outpatient treatment with consultation to pulmonary services Was smoking cessation discussed for >3mins.? @ -No Was critical care preformed (if so, how long)? @ -No Were there social determinants of health that impacted care today? How? (Homele ssness, low income, unemployed, alcoholism, drug addiction, transportation, low edu. Level, literacy, decrease access to med. care, group home, rehab)? @ -No Was there de-escalation of care discussed even if they declined (Discuss DNR or withdrawal of care, Hospice)? DNR status @ -No What co-morbidities impacted this encounter? (DM, HTN, Smoking, COPD, CAD, Cancer, CVA, ARF, Chemo, Hep., AIDS, mental health diagnosis, sleep apnea, morbid obesity)? @ -None Was patient admitted / discharged? Hospital course, mention meds given and route, prescriptions, significant lab abnormalities, going to OR and other pertinent info. @ -Patient was admitted. Patient was seen and evaluated for shortness of breath x 2 months that is worsening with associated productive cough. Vital signs initially remarkable for satting at 94% on room air, patient was placed on 2 L and oxygen improved. Physical examination is remarkable for diffuse inspiratory and expiratory wheezes in all lung álvarez bilaterally. X-ray revealed patchy right perihilar opacities. Lab work including CBC, CMP, magnesium, troponin was remarkable for white blood cell count of 12, otherwise unremarkable. EKG reveals atrial fibrillation with no ST changes. Discussed with patient that I would like to admit her at this time for pneumonia with failed outpatient treatment. I spoke with Dr. Pizano who accepts admission at this time for pneu monia with failed outpatient treatment with consultation to pulmonary services. Patient is agreeable to plan. Case was discussed with my ED attending Dr. Villanueva. Undiagnosed new problem with uncertain prognosis? @ -No Drug Therapy requiring intensive monitoring for toxicity (Heparin, Nitro, Insul in, Cardizem)? @ -No Were any procedures done? @ -No Diagnosis/symptom? @ -Pneumonia, shortness of breath Acute, or Chronic, or Acute on Chronic? @ -Acute Uncomplicated (without systemic symptoms) or Complicated (systemic symptoms)? @ -Uncomplicated Side effects of treatment? @ -No Exacerbation, Progression, or Severe Exacerbation? @ -No Poses a threat to life or bodily function? How? (Chest pain, [place], [place], pneumonia, PE, COPD, DKA, ARF, appy, cholecystitis, CVA, Diverticulitis, Homicidal, Suicid al, threat to staff... and all critical care pts) @ -Yes, pneumonia - Lab Data Result diagrams: 12/02/23 14:59 12/02/23 14:59 Lab Results 12/02/23 12/02/23 12/02/23 Range/Units 14:59 14:59 14:59 WBC 12.0 H (3.8-10.6) k/uL RBC 5.04 (3.80-5.40) m/uL Hgb 16.2 H (11.4-16.0) gm/dL Hct 50.3 H (34.0-46.0) % MCV 99.8 (80.0-100.0) fL MCH 32.2 (25.0-35.0) pg MCHC 32.3 (31.0-37.0) g/dL RDW 12.6 (11.5-15.5) % Plt Count 226 (150-450) k/uL MPV 7.3 Neutrophils % 71 % Lymphocytes % 12 % Monocytes % 6 % Eosinophils % 8 % Basophils % 1 % Neutrophils # 8.6 H (1.3-7.7) k/uL Lymphocytes # 1.5 (1.0-4.8) k/uL Monocytes # 0.7 (0-1.0) k/uL Eosinophils # 1.0 H (0-0.7) k/uL Basophils # 0.1 (0-0.2) k/uL PT 10.2 (10.0-12.5) sec INR 0.9 (<1.2) APTT 24.5 (22.0-30.0) sec Sodium 136 L (137-145) mmol/L Potassium 5.4 H (3.5-5.1) mmol/L Chloride 103 (98-107) mmol/L Carbon Dioxide 25 (22-30) mmol/L Anion Gap 8 mmol/L BUN 22 H (7-17) mg/dL Creatinine 0.57 (0.52-1.04) mg/dL Est GFR (CKD-EPI)AfAm >90 (>60 ml/min/1.73 sqM) Est GFR (CKD-EPI)NonAf 87 (>60 ml/min/1.73 sqM) Glucose 104 H (74-99) mg/dL Plasma Lactic Acid Leo (0.7-2.0) mmol/L Calcium 9.8 (8.4-10.2) mg/dL Magnesium 2.2 (1.6-2.3) mg/dL Total Bilirubin 2.6 H (0.2-1.3) mg/dL AST 45 H (14-36) U/L ALT 25 (4-34) U/L Alkaline Phosphatase 66 (38-126) U/L Troponin I (0.000-0.034) ng/mL NT-Pro-B Natriuret Pep 434 pg/mL Total Protein 7.4 (6.3-8.2) g/dL Albumin 4.6 (3.5-5.0) g/dL 12/02/23 12/02/23 Range/Units 14:59 14:59 WBC (3.8-10.6) k/uL RBC (3.80-5.40) m/uL Hgb (11.4-16.0) gm/dL Hct (34.0-46.0) % MCV (80.0-100.0) fL MCH (25.0-35.0) pg MCHC (31.0-37.0) g/dL RDW (11.5-15.5) % Plt Count (150-450) k/uL MPV Neutrophils % % Lymphocytes % % Monocytes % % Eosinophils % % Basophils % % Neutrophils # (1.3-7.7) k/uL Lymphocytes # (1.0-4.8) k/uL Monocytes # (0-1.0) k/uL Eosinophils # (0-0.7) k/uL Basophils # (0-0.2) k/uL PT (10.0-12.5) sec INR (<1.2) APTT (22.0-30.0) sec Sodium (137-145) mmol/L Potassium (3.5-5.1) mmol/L Chloride (98-107) mmol/L Carbon Dioxide (22-30) mmol/L Anion Gap mmol/L BUN (7-17) mg/dL Creatinine (0.52-1.04) mg/dL Est GFR (CKD-EPI)AfAm (>60 ml/min/1.73 sqM) Est GFR (CKD-EPI)NonAf (>60 ml/min/1.73 sqM) Glucose (74-99) mg/dL Plasma Lactic Acid Leo 1.0 (0.7-2.0) mmol/L Calcium (8.4-10.2) mg/dL Magnesium (1.6-2.3) mg/dL Total Bilirubin (0.2-1.3) mg/dL AST (14-36) U/L ALT (4-34) U/L Alkaline Phosphatase (38-126) U/L Troponin I <0.012 (0.000-0.034) ng/mL NT-Pro-B Natriuret Pep pg/mL Total Protein (6.3-8.2) g/dL Albumin (3.5-5.0) g/dL - EKG Data -: EKG Interpreted by De EKG Comments: EKG reveals atrial fibrillation with no ST changes. vent rate 80 bpm, LA interval 151, QRS duration 87, QT/QTC 367/404 Disposition Clinical Impression: Pneumonia Disposition: ADMITTED IP TO THIS HOSP Referrals: Rg Loo MD [Primary Care Provider] - 1-2 days Time of Disposition: 18:39
[2023-12-02 16:43] LABS: INR 0.9 (<1.2); Partial Thromboplastin Time 24.5 sec (22.0-30.0); Prothrombin Time 10.2 sec (10.0-12.5)
[2023-12-02 16:48] LABS: AST 45 U/L (14-36); Albumin 4.6 g/dL (3.5-5.0); Magnesium 2.2 mg/dL (1.6-2.3); Potassium 5.4 mmol/L (3.5-5.1); Total Bilirubin 2.6 mg/dL (0.2-1.3); Total Protein 7.4 g/dL (6.3-8.2)
[2023-12-02 16:49] LABS: Alkaline Phosphatase 66 U/L (38-126)
[2023-12-02] MEDS ORDERED: PNEUMONIA PROTOCOL UTILIZED 1 EACH MISC PO PRN (18:37)
[2023-12-02] MEDS ORDERED: NALOXONE 0.4 MG/ML 1 ML VIAL IV PRN (19:42)
[2023-12-02 23:16] LABS: Glucose,Whole Blood 135 mg/dL (70-110)
[2023-12-02] MEDS: CLOPIDOGREL 75 MG TAB PO SCH (23:53)
[2023-12-02] MEDS: atenoloL 50 MG TAB PO SCH (23:53)
[2023-12-02] MEDS: ATORVASTATIN 80 MG TAB PO SCH (23:53)
[2023-12-02] MEDS: EZETIMIBE 10 MG TAB PO SCH (23:53)
[2023-12-03 06:30] LABS: Glucose,Whole Blood 93 mg/dL (70-110)
[2023-12-03] MEDS ORDERED: IPRATROPIUM-ALBUTEROL 3 ML NEB INHALATION PRN (09:19)
[2023-12-03] MEDS: IPRATROPIUM-ALBUTEROL 3 ML NEB INHALATION SCH (10:46)
[2023-12-03] MEDS: methylPREDNISolone SOD SUCCI 40 MG/ML 1 ML VIAL IV SCH (11:41)
--- NOTE | 2023-12-03 12:46 | P.CNPUL ---
History of Present Illness Consult date: 12/03/23 Requesting physician: Anastacia Francis Reason for consult: dyspnea History of present illness: 83-year-old female with past medical history significant for A-fib anticoagulated on Eliquis, hypertension, diabetes, CAD, COPD presents to the emergency room with shortness of breath that has been going on for the last 2 months. She also states she has a productive cough and that she has been prescribed many antibiotics without any relief. Patient does not currently smoke but states that she stopped in 2003 but smoked 1 pack a day for 40 years prior to that. In the ED, troponins and N-terminal proBNP were unremarkable. Chest x-ray showed patchy right perihilar opacity with ill-defined areas of nodularity. PT 10.2, INR 0.9, PTT 24.5 suggestive of therapeutic ranges. Sodium 136. Potassium 5.4. Chloride 103. CO2 25. BUN 22. Creatinine 0.57. Glucose 104. White count 12. Hemoglobin 16.2. Platelets 226. Currently she is resting in bed in no apparent distress being 97% on 2 L nasal cannula. She states she is still having chest tightness and productive cough bringing up clear to yellow sputum. Sputum cultures pending. Patient states she has been on steroids before and tolerated them well. She denies using oxygen at home. Review of Systems REVIEW OF SYSTEMS: CONSTITUTIONAL: Denies any recent significant weight loss or weight gain. EYES: Denies change in vision. EARS, NOSE, MOUTH, THROAT: Denies headaches, denies sore throat. CARDIOVASCULAR: Denies chest pain, palpitations or syncopal episodes. RESPIRATORY: Positive for shortness of breath, cough, congestion GASTROINTESTINAL: Denies change in appetite, denies abdominal pain GENITOURINARY: Denies hematuria, denies infections. MUSKULOSKELETAL: Denies pain, denies swelling. INTEGUMENTARY: Denies rash, denies eczema. NEUROLOGICAL: Denies recent memory loss, no recent seizure activity. PSYCHIATRIC: Denies anxiety, denies depression. HEMATOLOGIC/LYMPHATIC: Denies anemia, denies enlarged lymph nodes. Past Medical History Past Medical History: Atrial Fibrillation, Coronary Artery Disease (CAD), Chest Pain / Angina, Diabetes Mellitus, Hypertension, Osteoarthritis (OA) Additional Past Medical History / Comment(s): hx varicose veins, lower lobe of lung "collapsed", swelling lt ankle History of Any Multi-Drug Resistant Organisms: None Reported, MRSA Date of last positivie culture/infection: 11/18/16 MDRO Source:: Head Past Surgical History: Breast Surgery, Cholecystectomy, Heart Catheterization With Stent, Tubal Ligation Additional Past Surgical History / Comment(s): three cardiac stents, rt breast lumpectomy Past Anesthesia/Blood Transfusion Reactions: No Reported Reaction, Motion Sickness, Postoperative Nausea & Vomiting (PONV) Date of Last Stent Placement:: 2020 Past Psychological History: No Psychological Hx Reported Smoking Status: Former smoker Past Alcohol Use History: None Reported Additional Past Alcohol Use History / Comment(s): quit smoking 2003, smoked for 40 yrs, 1 PPD Past Drug Use History: None Reported - Past Family History Mother Family Medical History: No Reported History Brother(s) Family Medical History: Cancer Medications and Allergies Home Medications Medication Instructions Recorded Confirmed Type Atorvastatin [Lipitor] 80 mg PO HS 06/17/16 12/02/23 History Clopidogrel Bisulfate [Plavix] 75 mg PO HS 10/02/16 12/02/23 History Dapagliflozin Propanediol [Farxiga] 10 mg PO DAILY 09/05/21 12/02/23 History Ezetimibe [Zetia] 10 mg PO HS 09/05/21 12/02/23 History Multivitamins, Thera [Multivitamin 2 tab PO DAILY 02/26/23 12/02/23 History (formulary)] Vitamin C/Biotin [Hair, Skin and 2 tab PO DAILY 02/26/23 12/02/23 History Nails Chew] atenoloL [Tenormin] 25 mg PO DAILY 02/26/23 12/02/23 History atenoloL [Tenormin] 50 mg PO DAILY@1800 02/26/23 12/02/23 History Albuterol Nebulized [Ventolin 2.5 mg INHALATION RT-QID PRN 12/02/23 12/02/23 History Nebulized] Albuterol Sulfate [Albuterol 2 puff INHALATION RT-Q4H PRN 12/02/23 12/02/23 His tory Sulfate Hfa] Ascorbic Acid [Vitamin C] 250 mg PO DAILY 12/02/23 12/02/23 History Aspirin EC [Ecotrin Low Dose] 81 mg PO DAILY 12/02/23 12/02/23 History Estrogens, Conjugated Cream 1 applic VAGINAL DIRECTED 12/02/23 12/02/23 History [Premarin Vaginal Cream] Melatonin(Unknown Dose) 1 tab PO HS PRN 12/02/23 12/02/23 History Nitroglycerin Sl Tabs [Nitrostat] 0.4 mg SL Q5M PRN 12/02/23 12/02/23 History Valsartan [Diovan] 160 mg PO BID 12/02/23 12/02/23 History Vitamin D3(Unknown Dose) 1 tab PO DAILY 12/02/23 12/02/23 History Yupelri 175mcg/3ml 175 mcg INHALATION RT-DAILY 12/02/23 12/02/23 History amLODIPine [Norvasc] 2.5 mg PO DAILY@1200 12/02/23 12/02/23 History Allergies Allergy/AdvReac Type Severity Reaction Status Date / Time latex Allergy Rash/Hives Verified 12/02/23 19:21 minocycline AdvReac Nausea & Verified 12/02/23 19:21 Vomiting & Diarrhea sulfamethoxazole AdvReac Nausea & Verified 12/02/23 19:21 [From Bactrim] Vomiting & Diarrhea trimethoprim [From Bactrim] AdvReac Nausea & Verified 12/02/23 19:21 Vomiting & Diarrhea Physical Exam Vitals: Vital Signs Temp Pulse Pulse Resp BP BP Pulse Ox 12/03/23 11:00 80 12/03/23 10:49 74 12/03/23 08:00 98.2 F 75 19 115/68 97 12/03/23 01:52 97.5 F L 77 18 135/69 96 12/02/23 22:45 97.8 F 78 18 158/69 95 12/02/23 22:00 76 18 147/84 96 12/02/23 20:00 98.4 F 82 18 152/82 97 12/02/23 19:00 81 16 156/70 98 12/02/23 18:31 18 12/02/23 17:47 76 18 96 12/02/23 16:47 83 16 156/78 97 12/02/23 15:47 79 16 152/70 95 12/02/23 14:45 98.3 F 81 18 133/74 94 L Intake and Output 12/02/23 12/03/23 12/03/23 22:59 06:59 14:59 Other: Voiding Method Toilet Weight 68.039 kg GENERAL: This is a 83-year-old in no apparent distress at the time of examination. Pleasant and cooperative. HEENT: Head is atraumatic, normocephalic. Pupils are equal, round, and reactive to light. Sclerae anicteric. Conjunctivae are clear. Mucus membranes of the mouth are moist. Neck is supple. RESPIRATORY: Inspiratory and expiratory wheezing present in all lung álvarez bilaterally. No use of accessory muscles. Patient maintaining oxygen saturation greater than 92%. CARDIOVASCULAR: Regular rate and rhythm. S1 and S2 noted. No systolic or diastolic murmur auscultated. No JVD noted. No S3 or S4 noted. GASTROINTESTINAL: No distention noted. Abdomen soft and round. Normal active bowel sounds auscultated x 4 quadrants. No pain or tenderness noted upon palpation. INTEGUMENTARY: No cyanosis. No jaundice. No rashes noted. No cellulitis noted. EXTREMITIES: 2+ peripheral pulses. No evidence of peripheral edema. No calf ten derness noted. Results - Laboratory Findings CBC and BMP: 12/02/23 14:59 12/02/23 14:59 PT/INR, D-dimer PT 10.2 sec (10.0-12.5) 12/02/23 14:59 INR 0.9 (<1.2) 12/02/23 14:59 Abnormal lab findings: Abnormal Labs 12/02/23 12/02/23 12/02/23 14:59 14:59 23:14 WBC 12.0 H Hgb 16.2 H Hct 50.3 H Neutrophils # 8.6 H Eosinophils # 1.0 H Sodium 136 L Potassium 5.4 H BUN 22 H Glucose 104 H POC Glucose (mg/dL) 135 H Total Bilirubin 2.6 H AST 45 H - Diagnostic Findings Chest x-ray: image reviewed Assessment and Plan Assessment: Moderate COPD exacerbation Productive cough Suspected PNA History of A-fib anticoagulated on Eliquis History of hypertension History of diabetes History of CAD Plan: Start Solu-Medrol 40 mg every 6 hours Start DuoNebs 4 times daily as well as every 2 as needed for shortness of breath Start Perforomist 20 mcg twice daily Start Pulmicort 1 mg twice daily Follow-up sputum culture Follow-up procalcitonin Continue home medications Will continue to follow Time with Patient: Greater than 30
--- NOTE | 2023-12-03 18:00 | P.HPIM ---
History of Present Illness H&P Date: 12/02/23 Chief Complaint: Shortness of breath 83 year old female with PMH of atrial fibrillation, HTN, DM type 2, CAD, and COPD presenting with shortness of breath x 2 months with associated chest congestion. states she has seen her PCP for this where they have placed her on several different courses of antibiotics in an attempt to allieviate symptoms but she states they have not helped. States she is having a constant productive cough. Shortness of breath is worse with exertion. Denies chest pain, abdominal pain, fevers, or chills. She is currently on cefuroxime. She is a former smoker. She is on Eliquis for a fib. Denies at home oxygen In the ED, troponins and N-terminal proBNP were unremarkable. PT 10.2, INR 0.9, PTT 24.5 suggestive of therapeutic ranges. Sodium 136. Potassium 5.4. Chloride 103. CO2 25. BUN 22. Creatinine 0.57. Glucose 104. White count 12. Hemoglobin 16.2. Platelets 226. Chest x-ray showed patchy right perihilar opacity with ill-defined areas of nodularity. Review of Systems REVIEW OF SYSTEMS: CONSTITUTIONAL: No fever, no malaise, no fatigue. HEENT: No recent visual problems or hearing problems. Denied any sore throat. CARDIOVASCULAR: No chest pain, orthopnea, PND, no palpitations, no syncope. PULMONARY: No shortness of breath, no cough, no hemoptysis. GASTROINTESTINAL: No diarrhea, no nausea, no vomiting, no abdominal pain. NEUROLOGICAL: No headaches, no weakness, no numbness. HEMATOLOGICAL: Denies any bleeding or petechiae. GENITOURINARY: Denies any burning micturition, frequency, or urgency. MUSCULOSKELETAL/RHEUMATOLOGICAL: Denies any joint pain, swelling, or any muscle pain. ENDOCRINE: Denies any polyuria or polydipsia. The rest of the 14-point review of systems is negative. Past Medical History Past Medical History: Atrial Fibrillation, Coronary Artery Disease (CAD), Chest Pain / Angina, Hypertension, Osteoarthritis (OA) Additional Past Medical History / Comment(s): hx varicose veins, lower lobe of lung "collapsed", swelling lt ankle History of Any Multi-Drug Resistant Organisms: MRSA Date of last positivie culture/infection: 11/18/16 MDRO Source:: Head Past Surgical History: Breast Surgery, Cholecystectomy, Heart Catheterization With Stent, Tubal Ligation Additional Past Surgical History / Comment(s): three cardiac stents, rt breast lumpectomy Past Anesthesia/Blood Transfusion Reactions: Motion Sickness, Postoperative Nausea & Vomiting (PONV) Date of Last Stent Placement:: 2020 Past Psychological History: No Psychological Hx Reported Smoking Status: Former smoker Past Alcohol Use History: None Reported Past Drug Use History: None Reported - Past Family History Mother Family Medical History: No Reported History Brother(s) Family Medical History: Cancer Medications and Allergies Home Medications Medication Instructions Recorded Confirmed Type Atorvastatin [Lipitor] 80 mg PO HS 06/17/16 12/02/23 History Clopidogrel Bisulfate [Plavix] 75 mg PO HS 10/02/16 12/02/23 History Dapagliflozin Propanediol [Farxiga] 10 mg PO DAILY 09/05/21 12/02/23 History Ezetimibe [Zetia] 10 mg PO HS 09/05/21 12/02/23 History Multivitamins, Thera [Multivitamin 2 tab PO DAILY 02/26/23 12/02/23 History (formulary)] Vitamin C/Biotin [Hair, Skin and 2 tab PO DAILY 02/26/23 12/02/23 History Nails Chew] atenoloL [Tenormin] 25 mg PO DAILY 02/26/23 12/02/23 History atenoloL [Tenormin] 50 mg PO DAILY@1800 02/26/23 12/02/23 History Albuterol Nebulized [Ventolin 2.5 mg INHALATION RT-QID PRN 12/02/23 12/02/23 History Nebulized] Albuterol Sulfate [Albuterol 2 puff INHALATION RT-Q4H PRN 12/02/23 12/02/23 History Sulfate Hfa] Ascorbic Acid [Vitamin C] 250 mg PO DAILY 12/02/23 12/02/23 History Aspirin EC [Ecotrin Low Dose] 81 mg PO DAILY 12/02/23 12/02/23 History Estrogens, Conjugated Cream 1 applic VAGINAL DIRECTED 12/02/23 12/02/23 History [Premarin Vaginal Cream] Melatonin(Unknown Dose) 1 tab PO HS PRN 12/02/23 12/02/23 History Nitroglycerin Sl Tabs [Nitrostat] 0.4 mg SL Q5M PRN 12/02/23 12/02/23 History Valsartan [Diovan] 160 mg PO BID 12/02/23 12/02/23 History Vitamin D3(Unknown Dose) 1 tab PO DAILY 12/02/23 12/02/23 History Yupelri 175mcg/3ml 175 mcg INHALATION RT-DAILY 12/02/23 12/02/23 History amLODIPine [Norvasc] 2.5 mg PO DAILY@1200 12/02/23 12/02/23 History Allergies Allergy/AdvReac Type Severity Reaction Status Date / Time latex Allergy Rash/Hives Verified 12/02/23 19:21 minocycline AdvReac Nausea & Verified 12/02/23 19:21 Vomiting & Diarrhea sulfamethoxazole AdvReac Nausea & Verified 12/02/23 19:21 [From Bactrim] Vomiting & Diarrhea trimethoprim [From Bactrim] AdvReac Nausea & Verified 12/02/23 19:21 Vomiting & Diarrhea Physical Exam Vitals: Vital Signs Temp Pulse Resp BP Pulse Ox 12/02/23 19:00 81 16 156/70 98 12/02/23 18:31 18 12/02/23 17:47 76 18 96 12/02/23 16:47 83 16 156/78 97 12/02/23 15:47 79 16 152/70 95 12/02/23 14:45 98.3 F 81 18 133/74 94 L Intake and Output 12/02/23 12/02/23 12/02/23 06:59 14:59 22:59 Other: Weight 68.039 kg GENERAL: This is a 83-year-old in no apparent distress at the time of examination. Pleasant and cooperative. HEENT: Head is atraumatic, normocephalic. Pupils are equal, round, and reactive to light. Sclerae anicteric. Conjunctivae are clear. Mucus membranes of the mouth are moist. Neck is supple. RESPIRATORY: Inspiratory and expiratory wheezing present in all lung álvarez bilaterally. No use of accessory muscles. Patient maintaining oxygen saturation greater than 92%. CARDIOVASCULAR: Regular rate and rhythm. S1 and S2 noted. No systolic or diastolic murmur auscultated. No JVD noted. No S3 or S4 noted. GASTROINTESTINAL: No distention noted. Abdomen soft and round. Normal active bowel sounds auscultated x 4 quadrants. No pain or tenderness noted upon palpation. INTEGUMENTARY: No cyanosis. No jaundice. No rashes noted. No cellulitis noted. EXTREMITIES: 2+ peripheral pulses. No evidence of peripheral edema. No calf tenderness noted. Results CBC & Chem 7: 12/02/23 14:59 12/02/23 14:59 Labs: Abnormal Lab Results - Last 24 Hours (Table) 12/02/23 12/02/23 Range/Units 14:59 14:59 WBC 12.0 H (3.8-10.6) k/uL Hgb 16.2 H (11.4-16.0) gm/dL Hct 50.3 H (34.0-46.0) % Neutrophils # 8.6 H (1.3-7.7) k/uL Eosinophils # 1.0 H (0-0.7) k/uL Sodium 136 L (137-145) mmol/L Potassium 5.4 H (3.5-5.1) mmol/L BUN 22 H (7-17) mg/dL Glucose 104 H (74-99) mg/dL Total Bilirubin 2.6 H (0.2-1.3) mg/dL AST 45 H (14-36) U/L Assessment and Plan Assessment: 1. Acute exacerbation COPD -- Patient has been placed on Solu-Medrol 40 mg IV every 6 hours; DuoNeb nebulizer treatments 4 times daily as needed -- Patient received IV Rocephin and azithromycin in ED 2. Right perihilar pneumonia -Patient received IV Rocephin and azithromycin in ED; blood cultures and sputum cultures are ordered; will monitor CBC, CRP and procalcitonin 3. Hyperkalemia; patient is not on any potassium supplement; will plan to hold Diovan and monitor electrolytes closely 4. Elevated liver enzymes; likely related to infection and sepsis; will monitor liver enzymes closely and make further recommendations 5. Hypertension; atenolol 50 mg daily; amlodipine 2.5 mg daily; valsartan 160 mg twice daily 6. Diabetes mellitus type 2; patient takes Farxiga 10 mg daily 7. Atrial fibrillation; patient is rate controlled on metoprolol; currently not on any anticoagulation therapy 8. Hyperlipidemia; Lipitor 80 mg p.o. nightly; Zetia 10 mg nightly DVT prophylaxis; SCDs/subcu heparin CODE STATUS; full code
[2023-12-03] MEDS: AZITHROMYCIN 500 MG TAB PO SCH (19:28)
[2023-12-03] MEDS: BUDESONIDE 1 MG/2 ML NEBU INHALATION SCH (20:59)
[2023-12-03] MEDS: FORMOTEROL FUMARATE 20 MCG/2 ML NEBU INHALATION SCH (20:59)
[2023-12-03] MEDS: MELATONIN 3 MG TABLET PO SCH (21:41)
[2023-12-04] MEDS: hydrALAZINE HCL 20 MG/ML 1 ML VIAL IVP PRN (04:24)
--- NOTE | 2023-12-04 07:43 | P.PN ---
Subjective Progress Note Date: 12/04/23 Principal diagnosis: Shortness of breath. 83-year-old female with past medical history significant for A-fib anticoagulated on Eliquis, hypertension, diabetes, CAD, COPD presents to the emergency room with shortness of breath that has been going on for the last 2 months. She also states she has a productive cough and that she has been prescribed many antibiotics without any relief. Patient does not currently smoke but states that she stopped in 2003 but smoked 1 pack a day for 40 years prior to that. In the ED, troponins and N-terminal proBNP were unremarkable. Chest x-ray showed patchy right perihilar opacity with ill-defined areas of nodularity. PT 10.2, INR 0.9, PTT 24.5 suggestive of therapeutic ranges. Sodium 136. Potassium 5.4. Chloride 103. CO2 25. BUN 22. Creatinine 0.57. Glucose 104. White count 12. Hemoglobin 16.2. Platelets 226. Currently she is resting in bed in no apparent distress being 97% on 2 L nasal cannula. She states she is still having chest tightness and productive cough bringing up clear to yellow sputum. Sputum cultures pending. Patient states she has been on steroids before and tolerated them well. She denies using oxygen at home. Progress note dated December 07, 2023. 83-year-old female seen in consultation yesterday. Please see the note above. The patient has a history of atrial fibrillation, hypertension, diabetes, coronary disease, and COPD. The patient came in with increasing shortness of breath. She recently has been receiving antibiotics by her primary care physician, without improvement. The patient feels better this morning. She is on 2 L of oxygen. Her procalcitonin level was 0.04. Antibiotics have been discontinued. The patient is not receiving any IV fluids. She told me she had an elevation in her blood pressure last night. No new labs today. Objective - Vital Signs Vital signs: Vital Signs Temp 97.5 F L 12/04/23 06:47 Pulse 82 12/04/23 06:47 Resp 16 12/04/23 06:47 BP 133/69 12/04/23 06:47 Pulse Ox 95 12/04/23 06:47 FiO2 Intake & Output 12/03/23 12/04/23 12/04/23 18:59 06:59 18:59 Other: Voiding Method Toilet # Voids 1 2 # Bowel Movements 1 - Exam No acute distress, oriented 3. No respiratory distress. Currently on 2 L of oxygen. HEENT examination is grossly unremarkable. Mucous membranes are moist. No oral lesions. Neck supple. Full range of motion. No adenopathy thyromegaly or neck vein distention. Cardiovascular examination reveals regular rhythm rate. S1-S2 normal. No S3 or S4. No discernible murmur noted. Heart rate 82 bpm. Lungs reveal scattered expiratory rhonchi and wheezes. Breath sounds are improved. No crackles. Breath sounds equal bilaterally. 2 L saturation 97%. Room air saturation 95%. Abdomen soft bowel sounds are heard. No masses or tenderness. Extremities are intact. No cyanosis clubbing or edema. Skin is without rash or lesion. Neurologic examination is brief but nonfocal. - Labs CBC & Chem 7: 12/02/23 14:59 12/02/23 14:59 Labs: Microbiology - Last 24 Hours (Table) 12/02/23 22:03 Gram Stain - Preliminary Sputum Assessment and Plan Assessment: Acute exacerbation of moderate COPD. Productive cough, improved. Doubt pneumonia. History of atrial fibrillation. History of hypertension. History of diabetes mellitus. History of CAD. Plan: Plan dated December 04, 2023. The patient's procalcitonin level was 0.04. Antibiotics have been discontinued. She was started on breathing treatments, and corticosteroids. That seems to have made a big difference. We will continue to follow. Her room air saturations excellent. No additional recommendations are made. Again she is on albuterol sulfate, ipratropium bromide, Perforomist, Pulmicort, and Solu-Medrol. Time with Patient: Less than 30
[2023-12-04] MEDS: ASPIRIN 81 MG PO SCH (07:48)
[2023-12-04] MEDS: ASCORBIC ACID 500 MG TAB PO SCH (07:48)
[2023-12-04] MEDS: DAPAGLIFLOZIN PROPANEDIOL 10 MG TABLET PO SCH (07:48)
[2023-12-04 09:23] LABS: Basophils # (A) 0.01 X 10*3/uL (0.00-0.10); Basophils % (A) 0.1 %; Eosinophils # (A) 0 X 10*3/uL (0.04-0.35); Eosinophils % (A) 0 %; HCT 46.3 % (37.2-46.3); HGB 15.3 g/dL (12.0-15.0); Lymphocytes # (A) 0.59 X 10*3/uL (0.90-5.00); Lymphocytes % (A) 6.8 %; MCH 32.6 pg (27.0-32.0); MCV 98.5 FL (80.0-97.0); Mean Platelet Volume 10.2 FL (9.5-12.2); Monocytes % (A) 1.2 %; NRBC Per 100 WBC 0 X 10*3/uL (0.00-0.01); Neutrophils # (A) 7.95 X 10*3/uL (1.80-7.70); Neutrophils % (A) 91.6 %; Platelet Count 235 X 10*3/uL (140-440); RDW 12.3 % (11.5-14.5); WBC 8.68 X 10*3/uL (4.50-10.00)
[2023-12-04 09:40] LABS: BUN/Creat Ratio 34.14 Ratio (12.00-20.00); Blood Urea Nitrogen 23.9 mg/dL (9.0-27.0); Calcium 9.4 mg/dL (8.7-10.3); Carbon Dioxide 22.4 mmol/L (21.6-31.8); Chloride 101 mmol/L (96-109); Glucose 195 mg/dL (70-110); Potassium 4.3 mmol/L (3.5-5.5); Sodium 137 mmol/L (135-145)
[2023-12-04] MEDS: amLODIPine 2.5 MG TAB PO SCH (12:03)
--- NOTE | 2023-12-04 15:20 | P.PN ---
Subjective Progress Note Date: 12/04/23 83 year old female with PMH of atrial fibrillation, HTN, DM type 2, CAD, and COPD presenting with shortness of breath x 2 months with associated chest congestion. states she has seen her PCP for this where they have placed her on several different courses of antibiotics in an attempt to allieviate symptoms but she states they have not helped. States she is having a constant productive cough. Shortness of breath is worse with exertion. Denies chest pain, abdominal pain, fevers, or chills. She is currently on cefuroxime. She is a former smoker. She is on Eliquis for a fib. Denies at home oxygen In the ED, troponins and N-terminal proBNP were unremarkable. PT 10.2, INR 0.9, PTT 24.5 suggestive of therapeutic ranges. Sodium 136. Potassium 5.4. Chloride 103. CO2 25. BUN 22. Creatinine 0.57. Glucose 104. White count 12. Hemoglobin 16.2. Platelets 226. Chest x-ray showed patchy right perihilar opacity with ill-defined areas of nodularity. 12/04/2023 Patient seen and evaluated sitting up in bed; he at bedside; reports improvement in breathing; currently on O2 at 2 L per nasal cannula The patient has a history of atrial fibrillation, hypertension, diabetes, c oronary disease, and COPD. The patient came in with increasing shortness of breath. She recently has been receiving antibiotics by her primary care physician, without improvement. Blood work is reviewed. Her procalcitonin level was 0.04. WBC of 8.6, hemoglobin of 15.3 and platelet count of 235, sodium 137, potassium 4.3, BUNs/creatinine of 23.9/0.7, blood glucose of 195 -Patient has been evaluated by pulmonary service and given normal white blood count, patient being afebrile, diagnosis of pneumonia is ruled out -- Antibiotics have been discontinued. Pulmonary service on board and recommended to continue albuterol sulfate, ipratropium bromide, Perforomist, Pulmicort, and Solu-Medrol. Objective - Vital Signs Vital signs: Vital Signs Temp 97.5 F L 12/04/23 06:47 Pulse 86 12/04/23 08:17 Resp 16 12/04/23 06:47 BP 133/69 12/04/23 06:47 Pulse Ox 95 12/04/23 06:47 FiO2 Intake & Output 12/03/23 12/04/23 12/04/23 18:59 06:59 18:59 Other: Voiding Method Toilet # Voids 1 2 # Bowel Movements 1 - Exam GENERAL: This is a 83-year-old in no apparent distress at the time of examination. Pleasant and cooperative. HEENT: Head is atraumatic, normocephalic. Pupils are equal, round, and reactive to light. Sclerae anicteric. Conjunctivae are clear. Mucus membranes of the mouth are moist. Neck is supple. RESPIRATORY: Inspiratory and expiratory wheezing present in all lung álvarez bilaterally. No use of accessory muscles. Patient maintaining oxygen saturation greater than 92%. CARDIOVASCULAR: Regular rate and rhythm. S1 and S2 noted. No systolic or diastolic murmur auscultated. No JVD noted. No S3 or S4 noted. GASTROINTESTINAL: No distention noted. Abdomen soft and round. Normal active bowel sounds auscultated x 4 quadrants. No pain or tenderness noted upon palpation. INTEGUMENTARY: No cyanosis. No jaundice. No rashes noted. No cellulitis noted. EXTREMITIES: 2+ peripheral pulses. No evidence of peripheral edema. No calf tenderness noted. - Labs CBC & Chem 7: 12/04/23 04:34 12/04/23 04:34 Labs: Abnormal Lab Results - Last 24 Hours (Table) 12/04/23 12/04/23 Range/Units 04:34 04:34 Hgb 15.3 H (12.0-15.0) g/dL MCV 98.5 H (80.0-97.0) FL MCH 32.6 H (27.0-32.0) pg Neutrophils # 7.95 H (1.80-7.70) X 10*3/uL Lymphocytes # 0.59 L (0.90-5.00) X 10*3/uL Monocytes # 0.10 L (0.20-1.00) X 10*3/uL Eosinophils # 0 L (0.04-0.35) X 10*3/uL Anion Gap 13.60 H (4.00-12.00) mmol/L BUN/Creatinine Ratio 34.14 H (12.00-20.00) Ratio Glucose 195 H (70-110) mg/dL Microbiology - Last 24 Hours (Table) 12/02/23 22:03 Gram Stain - Preliminary Sputum Assessment and Plan Assessment: 1. Acute exacerbation COPD -- Patient has been placed on Solu-Medrol 40 mg IV every 6 hours; DuoNeb nebulizer treatments 4 times daily as needed -- Patient received IV Rocephin and azithromycin in ED 2. Right perihilar pneumonia -Patient received IV Rocephin and azithromycin in ED; blood cultures and sputum cultures are ordered; will monitor CBC, CRP and procalcitonin 3. Hyperkalemia; patient is not on any potassium supplement; will plan to hold Diovan and monitor electrolytes closely 4. Elevated liver enzymes; likely related to infection and sepsis; will monitor liver enzymes closely and make further recommendations 5. Hypertension; atenolol 50 mg daily; amlodipine 2.5 mg daily; valsartan 160 mg twice daily 6. Diabetes mellitus type 2; patient takes Farxiga 10 mg daily 7. Atrial fibrillation; patient is rate controlled on metoprolol; currently not on any anticoagulation therapy 8. Hyperlipidemia; Lipitor 80 mg p.o. nightly; Zetia 10 mg nightly DVT prophylaxis; SCDs/subcu heparin CODE STATUS; full code
--- NOTE | 2023-12-05 08:50 | P.PN ---
Subjective Progress Note Date: 12/05/23 This is an 83-year-old female who presented to the emergency room with complaints of shortness of breath for 2 months with associated chest congestion. Patient had been on antibiotics as an outpatient and they did not relieve her symptoms. Chest x-ray on admission showed patchy right opacity with ill-defined areas of nodularity. Patient reports shortness of breath is improving. Antibiotics have been discontinued. She is maintained on IV steroids at this time and updrafts. Patient concerned for some streaks of blood in her stool, will order stool for occult blood. She is tolerating diet. Vitals are stable. Objective - Vital Signs Vital signs: Vital Signs Temp 97.5 F L 12/05/23 02:00 Pulse 82 12/05/23 08:21 Resp 20 12/04/23 20:00 BP 108/60 12/05/23 02:00 Pulse Ox 98 12/05/23 07:57 FiO2 Intake & Output 12/04/23 12/05/23 12/05/23 18:59 06:59 18:59 Other: Voiding Method Toilet # Voids 4 3 # Bowel Movements 2 - Constitutional General appearance: Present: cooperative, no acute distress - EENT Eyes: Present: PERRLA - Neck Neck: Present: normal ROM. Absent: lymphadenopathy, rigidity - Respiratory Respiratory: bilateral: wheezing - Cardiovascular Heart sounds: normal: S1, S2 - Gastrointestinal General gastrointestinal: Present: soft. Absent: tenderness - Integumentary Integumentary: Present: normal, normal turgor - Psychiatric Psychiatric: Present: A&O x's 3, appropriate affect, intact judgment & insight - Labs CBC & Chem 7: 12/04/23 04:34 12/04/23 04:34 Labs: Abnormal Lab Results - Last 24 Hours (Table) 12/04/23 12/04/23 Range/Units 04:34 04:34 Hgb 15.3 H (12.0-15.0) g/dL MCV 98.5 H (80.0-97.0) FL MCH 32.6 H (27.0-32.0) pg Neutrophils # 7.95 H (1.80-7.70) X 10*3/uL Lymphocytes # 0.59 L (0.90-5.00) X 10*3/uL Monocytes # 0.10 L (0.20-1.00) X 10*3/uL Eosinophils # 0 L (0.04-0.35) X 10*3/uL Anion Gap 13.60 H (4.00-12.00) mmol/L BUN/Creatinine Ratio 34.14 H (12.00-20.00) Ratio Glucose 195 H (70-110) mg/dL Microbiology - Last 24 Hours (Table) 12/02/23 22:03 Gram Stain - Preliminary Sputum Sputum Culture - Preliminary Assessment and Plan (1) Acute exacerbation of chronic obstructive pulmonary disease Current Visit: Yes Status: Acute Code(s): J44.1 - CHRONIC OBSTRUCTIVE PULMONARY DISEASE W (ACUTE) EXACERBATION SNOMED Code(s): 790634881 (2) History of atrial fibrillation Current Visit: Yes Status: Acute Code(s): Z86.79 - PERSONAL HISTORY OF OTHER DISEASES OF THE CIRCULATORY SYSTEM SNOMED Code(s): 640610105 (3) Hyperlipidemia Current Visit: Yes Status: Acute Code(s): E78.5 - HYPERLIPIDEMIA, UNSPECIFIED SNOMED Code(s): 97159944 Plan: Appreciate pulmonology input. Continue IV steroids for today. Anticipate discharge in the next 24 to 48 hours. Patient seen and evaluated by nurse practitioner, physician in agreement with plan
[2023-12-05 09:05] LABS: BUN/Creat Ratio 38.14 Ratio (12.00-20.00); Blood Urea Nitrogen 26.7 mg/dL (9.0-27.0); Calcium 8.8 mg/dL (8.7-10.3); Carbon Dioxide 24.3 mmol/L (21.6-31.8); Chloride 102 mmol/L (96-109); Glucose 191 mg/dL (70-110); Potassium 4.7 mmol/L (3.5-5.5); Sodium 135 mmol/L (135-145)
[2023-12-05] MEDS: predniSONE 20 MG TAB PO SCH (09:08)
[2023-12-05 09:23] LABS: Basophils # (A) 0.01 X 10*3/uL (0.00-0.10); Basophils % (A) 0.1 %; Eosinophils # (A) 0 X 10*3/uL (0.04-0.35); Eosinophils % (A) 0 %; HCT 38.6 % (37.2-46.3); HGB 13.1 g/dL (12.0-15.0); Lymphocytes # (A) 0.39 X 10*3/uL (0.90-5.00); Lymphocytes % (A) 3.3 %; MCH 33.1 pg (27.0-32.0); MCHC 33.9 g/dL (32.0-37.0); MCV 97.5 FL (80.0-97.0); Mean Platelet Volume 10.4 FL (9.5-12.2); Monocytes # (A) 0.34 X 10*3/uL (0.20-1.00); Monocytes % (A) 2.9 %; NRBC Per 100 WBC 0 X 10*3/uL (0.00-0.01); Neutrophils # (A) 10.87 X 10*3/uL (1.80-7.70); Neutrophils % (A) 92.8 %; Platelet Count 210 X 10*3/uL (140-440); RBC 3.96 X 10*6/uL (4.10-5.20); RDW 12.4 % (11.5-14.5); WBC 11.71 X 10*3/uL (4.50-10.00)
--- NOTE | 2023-12-05 11:09 | P.PN ---
Subjective Progress Note Date: 12/05/23 Principal diagnosis: Shortness of breath. 83-year-old female with past medical history significant for A-fib anticoagulated on Eliquis, hypertension, diabetes, CAD, COPD presents to the emergency room with shortness of breath that has been going on for the last 2 months. She also states she has a productive cough and that she has been prescribed many antibiotics without any relief. Patient does not currently smoke but states that she stopped in 2003 but smoked 1 pack a day for 40 years prior to that. In the ED, troponins and N-terminal proBNP were unremarkable. Chest x-ray showed patchy right perihilar opacity with ill-defined areas of nodularity. PT 10.2, INR 0.9, PTT 24.5 suggestive of therapeutic ranges. Sodium 136. Potassium 5.4. Chloride 103. CO2 25. BUN 22. Creatinine 0.57. Glucose 104. White count 12. Hemoglobin 16.2. Platelets 226. Currently she is resting in bed in no apparent distress being 97% on 2 L nasal cannula. She states she is still having chest tightness and productive cough bringing up clear to yellow sputum. Sputum cultures pending. Patient states she has been on steroids before and tolerated them well. She denies using oxygen at home. Progress note dated December 07, 2023. 83-year-old female seen in consultation yesterday. Please see the note above. The patient has a history of atrial fibrillation, hypertension, diabetes, coronary disease, and COPD. The patient came in with increasing shortness of breath. She recently has been receiving antibiotics by her primary care physician, without improvement. The patient feels better this morning. She is on 2 L of oxygen. Her procalcitonin level was 0.04. Antibiotics have been discontinued. The patient is not receiving any IV fluids. She told me she had an elevation in her blood pressure last night. No new labs today. Patient was examined today 12/05/2023 in room 466. She is resting comfortably in bed in no acute distress distress, on 2 L of oxygen nasal cannula. Patient states she is feeling better this morning. She is not receiving any IV fluids. She is tolerating her diet well. No new labs today. Vital signs are stable. Objective - Vital Signs Vital signs: Vital Signs Temp 98.1 F 12/05/23 07:25 Pulse 82 12/05/23 08:21 Resp 20 12/05/23 07:25 BP 117/71 12/05/23 07:25 Pulse Ox 98 12/05/23 07:57 FiO2 Intake & Output 12/04/23 12/05/23 12/05/23 18:59 06:59 18:59 Other: Voiding Method Toilet # Voids 4 3 # Bowel Movements 2 - Exam GENERAL: This is a 83-year-old in no apparent distress at the time of examination. Pleasant and cooperative. HEENT: Head is atraumatic, normocephalic. Pupils are equal, round, and reactive to light. Sclerae anicteric. Conjunctivae are clear. Mucus membranes of the mouth are moist. Neck is supple. RESPIRATORY: Lungs reveal scattered expiratory rhonchi and wheezes. Breath sounds are improved. No crackles. Breath sounds equal bilaterally. 2 L saturation 97%. Room air saturation 95%. CARDIOVASCULAR: Regular rate and rhythm. S1 and S2 noted. No systolic or diastolic murmur auscultated. No JVD noted. No S3 or S4 noted. GASTROINTESTINAL: No distention noted. Abdomen soft and round. Normal active bowel sounds auscultated x 4 quadrants. No pain or tenderness noted upon palpation. INTEGUMENTARY: No cyanosis. No jaundice. No rashes noted. No cellulitis noted. EXTREMITIES: 2+ peripheral pulses. No evidence of peripheral edema. No calf tenderness noted. PSYCHIATRIC: Awake, alert, and oriented X 3. Appropriate affect. Intact moisés gement and insight. - Labs CBC & Chem 7: 12/05/23 04:16 12/05/23 04:16 Labs: Abnormal Lab Results - Last 24 Hours (Table) 12/05/23 12/05/23 Range/Units 04:16 04:16 WBC 11.71 H (4.50-10.00) X 10*3/uL RBC 3.96 L (4.10-5.20) X 10*6/uL MCV 97.5 H (80.0-97.0) FL MCH 33.1 H (27.0-32.0) pg Immature Gran # 0.10 H (0.00-0.04) X 10*3/uL Neutrophils # 10.87 H (1.80-7.70) X 10*3/uL Lymphocytes # 0.39 L (0.90-5.00) X 10*3/uL Eosinophils # 0 L (0.04-0.35) X 10*3/uL BUN/Creatinine Ratio 38.14 H (12.00-20.00) Ratio Glucose 191 H (70-110) mg/dL Microbiology - Last 24 Hours (Table) 12/02/23 22:03 Gram Stain - Final Sputum Sputum Culture - Final Assessment and Plan Assessment: Moderate COPD exacerbation Productive cough, improved History of A-fib anticoagulated on Eliquis History of hypertension History of diabetes History of CAD Plan: D/Cd Solu-medrol and started Prednisone in preparation for discharge D/C'd Pulmicort & Perforomist and started Symbicort in preparation for discharge Continue DuoNebs 4 times daily as well as every 2 as needed for shortness of breath Continue home medications & recommendations from primary team. Due to patient's stable clinical status, she is she is clear for discharge from a pulmonology standpoint. Time with Patient: Greater than 30
[2023-12-05] MEDS: ACETAMINOPHEN TAB 325 MG TAB PO PRN (15:46)
[2023-12-06 02:46] VITALS: TEMP 97.4
[2023-12-06 07:24] VITALS: BP 136/75; RESP 17
[2023-12-06 08:02] VITALS: PULSE 90
--- NOTE | 2023-12-06 08:37 | P.DS ---
Providers Date of admission: 12/02/23 19:42 Attending physician: Rg Loo Consults: 12/02/23 18:31 Consult Physician Urgent Consulting Provider: Lonnie German Reason/Comments: pneumonia Do you want consulting provider notified?: Yes Primary care physician: Rg Loo - Discharge Diagnosis(es) (1) Acute exacerbation of chronic obstructive pulmonary disease Current Visit: Yes Status: Acute (2) History of atrial fibrillation Current Visit: Yes Status: Acute (3) Hyperlipidemia Current Visit: Yes Status: Acute Hospital Course: This is an 83-year-old female who originally presented to the emergency room with complaints of shortness of breath and chest congestion. Patient had failed outpatient treatment on oral antibiotics prior. Chest x-ray on admission showed patchy right opacity with ill-defined areas of nodularity. Patient was on IV antibiotics but they were discontinued over the weekend. She was on IV steroids and transitioned to oral steroids yesterday. Patient feels breathing is much improved. Vital signs are stable. Patient will be discharged today on an oral steroid taper. Patient seen and evaluated by nurse practitioner, physician in agreement with plan Plan - Discharge Summary Discharge Rx Participant: No New Discharge Prescriptions: New predniSONE [Deltasone] 40 mg PO DAILY 8 Days #9 tab atenoloL [Tenormin] 75 mg PO DAILY tab Continue Atorvastatin [Lipitor] 80 mg PO HS Clopidogrel Bisulfate [Plavix] 75 mg PO HS atenoloL [Tenormin] 50 mg PO DAILY@1800 Multivitamins, Thera [Multivitamin (formulary)] 2 tab PO DAILY Yupelri 175mcg/3ml 175 mcg INHALATION RT-DAILY Albuterol Nebulized [Ventolin Nebulized] 2.5 mg INHALATION RT-QID PRN PRN Reason: Shortness Of Breath Albuterol Sulfate [Albuterol Sulfate Hfa] 2 puff INHALATION RT-Q4H PRN PRN Reason: Shortness Of Breath amLODIPine [Norvasc] 2.5 mg PO DAILY@1200 Valsartan [Diovan] 160 mg PO BID Ezetimibe [Zetia] 10 mg PO HS Dapagliflozin Propanediol [Farxiga] 10 mg PO DAILY atenoloL [Tenormin] 25 mg PO DAILY Vitamin C/Biotin [Hair, Skin and Nails Chew] 2 tab PO DAILY Melatonin(Unknown Dose) 1 tab PO HS PRN PRN Reason: Insomnia Vitamin D3(Unknown Dose) 1 tab PO DAILY Ascorbic Acid [Vitamin C] 250 mg PO DAILY Aspirin EC [Ecotrin Low Dose] 81 mg PO DAILY Estrogens, Conjugated Cream [Premarin Vaginal Cream] 1 applic VAGINAL DIRECTED Nitroglycerin Sl Tabs [Nitrostat] 0.4 mg SL Q5M PRN PRN Reason: Chest Pain Discharge Medication List Atorvastatin [Lipitor] 80 mg PO HS 06/17/16 [History] Clopidogrel Bisulfate [Plavix] 75 mg PO HS 10/02/16 [History] Dapagliflozin Propanediol [Farxiga] 10 mg PO DAILY 09/05/21 [History] Ezetimibe [Zetia] 10 mg PO HS 09/05/21 [History] Multivitamins, Thera [Multivitamin (formulary)] 2 tab PO DAILY 02/26/23 [History] Vitamin C/Biotin [Hair, Skin and Nails Chew] 2 tab PO DAILY 02/26/23 [History] atenoloL [Tenormin] 25 mg PO DAILY 02/26/23 [History] atenoloL [Tenormin] 50 mg PO DAILY@1800 02/26/23 [History] Albuterol Nebulized [Ventolin Nebulized] 2.5 mg INHALATION RT-QID PRN 12/02/23 [History] Albuterol Sulfate [Albuterol Sulfate Hfa] 2 puff INHALATION RT-Q4H PRN 12/02/23 [History] Ascorbic Acid [Vitamin C] 250 mg PO DAILY 12/02/23 [History] Aspirin EC [Ecotrin Low Dose] 81 mg PO DAILY 12/02/23 [History] Estrogens, Conjugated Cream [Premarin Vaginal Cream] 1 applic VAGINAL DIRECTED 12/02/23 [History] Melatonin(Unknown Dose) 1 tab PO HS PRN 12/02/23 [History] Nitroglycerin Sl Tabs [Nitrostat] 0.4 mg SL Q5M PRN 12/02/23 [History] Valsartan [Diovan] 160 mg PO BID 12/02/23 [History] Vitamin D3(Unknown Dose) 1 tab PO DAILY 12/02/23 [History] Yupelri 175mcg/3ml 175 mcg INHALATION RT-DAILY 12/02/23 [History] amLODIPine [Norvasc] 2.5 mg PO DAILY@1200 12/02/23 [History] atenoloL [Tenormin] 75 mg PO DAILY tab 12/06/23 [Rx] predniSONE [Deltasone] 40 mg PO DAILY 8 Days #9 tab 12/06/23 [Rx] Follow up Appointment(s)/Referral(s): Rg Loo MD [Primary Care Provider] - 1 Week Ady Pierre MD [STAFF PHYSICIAN] - 1 Week Discharge Disposition: HOME SELF-CARE
[2023-12-06 08:48] LABS: BUN/Creat Ratio 39.29 Ratio (12.00-20.00); Blood Urea Nitrogen 27.5 mg/dL (9.0-27.0); Calcium 8.7 mg/dL (8.7-10.3); Carbon Dioxide 24.1 mmol/L (21.6-31.8); Chloride 102 mmol/L (96-109); Glucose 177 mg/dL (70-110); Potassium 4.1 mmol/L (3.5-5.5); Sodium 135 mmol/L (135-145)
[2023-12-06] MEDS: atenoloL 25 MG TAB PO SCH (09:11)
--- NOTE | 2023-12-06 10:39 | P.PN ---
Subjective Principal diagnosis: Shortness of breath. 83-year-old female with past medical history significant for A-fib anticoagulated on Eliquis, hypertension, diabetes, CAD, COPD presents to the emergency room with shortness of breath that has been going on for the last 2 months. She also states she has a productive cough and that she has been prescribed many antibiotics without any relief. Patient does not currently smoke but states that she stopped in 2003 but smoked 1 pack a day for 40 years prior to that. In the ED, troponins and N-terminal proBNP were unremarkable. Chest x-ray showed patchy right perihilar opacity with ill-defined areas of nodularity. PT 10.2, INR 0.9, PTT 24.5 suggestive of therapeutic ranges. Sodium 136. Potassium 5.4. Chloride 103. CO2 25. BUN 22. Creatinine 0.57. Glucose 104. White count 12. Hemoglobin 16.2. Platelets 226. Currently she is resting in bed in no apparent distress being 97% on 2 L nasal cannula. She states she is still having chest tightness and productive cough bringing up clear to yellow sputum. Sputum cultures pending. Patient states she has been on steroids before and tolerated them well. She denies using oxygen at home. Progress note dated December 07, 2023. 83-year-old female seen in consultation yesterday. Please see the note above. The patient has a history of atrial fibrillation, hypertension, diabetes, coronary disease, and COPD. The patient came in with increasing shortness of breath. She recently has been receiving antibiotics by her primary care physician, without improvement. The patient feels better this morning. She is on 2 L of oxygen. Her procalcitonin level was 0.04. Antibiotics have been discontinued. The patient is not receiving any IV fluids. She told me she had an elevation in her blood pressure last night. No new labs today. Patient was examined today 12/05/2023 in room 466. She is resting comfortably in bed in no acute distress distress, on 2 L of oxygen nasal cannula. Patient states she is feeling better this morning. She is not receiving any IV fluids. She is tolerating her diet well. No new labs today. Vital signs are stable. Patient was examined today 12/06/2023 in room 466. She is resting comfortably in bed in no acute distress, satting well on room air. Patient states she is feeling better this morning. She is not receiving any IV fluids. She is tolerating her diet well. Labs today were unremarkable. Vital signs are stable. She will likely be discharged today. Objective - Vital Signs Vital signs: Vital Signs Temp 97.4 F L 12/06/23 07:23 Pulse 90 12/06/23 08:01 Resp 17 12/06/23 07:23 BP 136/75 12/06/23 07:23 Pulse Ox 98 12/06/23 07:46 FiO2 Intake & Output 12/05/23 12/06/23 12/06/23 18:59 06:59 18:59 Intake Total 0 Balance 0 Intake: Oral 0 Other: Voiding Method Toilet # Voids 5 2 # Bowel Movements 2 - Exam GENERAL: This is a 83-year-old in no apparent distress at the time of examination. Pleasant and cooperative. HEENT: Head is atraumatic, normocephalic. Pupils are equal, round, and reactive to light. Sclerae anicteric. Conjunctivae are clear. Mucus membranes of the mouth are moist. Neck is supple. RESPIRATORY: Lungs reveal scattered expiratory rhonchi and wheezes. Breath sounds are improved. No crackles. Breath sounds equal bilaterally. 2 L saturation 97%. Room air saturation 95%. CARDIOVASCULAR: Regular rate and rhythm. S1 and S2 noted. No systolic or diastolic murmur auscultated. No JVD noted. No S3 or S4 noted. GASTROINTESTINAL: No distention noted. Abdomen soft and round. Normal active bowel sounds auscultated x 4 quadrants. No pain or tenderness noted upon p alpation. INTEGUMENTARY: No cyanosis. No jaundice. No rashes noted. No cellulitis noted. EXTREMITIES: 2+ peripheral pulses. No evidence of peripheral edema. No calf tenderness noted. PSYCHIATRIC: Awake, alert, and oriented X 3. Appropriate affect. Intact judgement and insight. - Labs CBC & Chem 7: 12/05/23 04:16 12/06/23 04:59 Labs: Abnormal Lab Results - Last 24 Hours (Table) 12/06/23 Range/Units 04:59 BUN 27.5 H (9.0-27.0) mg/dL BUN/Creatinine Ratio 39.29 H (12.00-20.00) Ratio Glucose 177 H (70-110) mg/dL Microbiology - Last 24 Hours (Table) 12/02/23 22:03 Gram Stain - Final Sputum Sputum Culture - Final Assessment and Plan Assessment: Moderate COPD exacerbation resolved Productive cough, improved History of A-fib anticoagulated on Eliquis History of hypertension History of diabetes History of CAD Plan: Continue Prednisone Continue home medications & recommendations from primary team. Patient will be discharged today Follow-up with Dr. Loo(primary) in 1 week Follow-up with in 1 week outpatient Time with Patient: Greater than 30
== END 2023-12-06 12:49 | disposition home or self-care (01) | DRG 872 ==
LOC: EC 14:21 → 4SSUR 19:42
PROVIDERS: ADMIT Family Medicine; ATTEND Family Medicine
DX: A41.9 Sepsis, unspecified organism (principal); J44.1 Chronic obstructive pulmonary disease with (acute) exacerbation; J44.0 Chronic obstructive pulmonary disease with (acute) lower respiratory infection; K92.1 Melena; E11.9 Type 2 diabetes mellitus without complications; I10 Essential (primary) hypertension; E87.5 Hyperkalemia; I25.10 Atherosclerotic heart disease of native coronary artery without angina pectoris; I48.91 Unspecified atrial fibrillation; R74.01 Elevation of levels of liver transaminase levels; E78.5 Hyperlipidemia, unspecified; Z66 Do not resuscitate; Z79.01 Long term (current) use of anticoagulants; Z79.52 Long term (current) use of systemic steroids; Z79.82 Long term (current) use of aspirin; Z79.84 Long term (current) use of oral hypoglycemic drugs; Z79.899 Other long term (current) drug therapy; Z87.891 Personal history of nicotine dependence; Z95.5 Presence of coronary angioplasty implant and graft; Z88.1 Allergy status to other antibiotic agents; Z88.2 Allergy status to sulfonamides; Z91.040 Latex allergy status; Z88.8 Allergy status to other drugs, medicaments and biological substances; Z98.51 Tubal ligation status; Z86.14 Personal history of Methicillin resistant Staphylococcus aureus infection
CPT/HCPCS: 36415; 71046; 80048; 80053; 82272; 83605; 83735; 83880; 84145; 84484; 85025; 85610; 85730; 87070; 87205; 87449; 93005; 94640; 94760; 99285

== ENCOUNTER → 2024-06-12 | Outpatient (CLI) | payer MEDICARE, BC ==
[2024-06-12 13:45] LABS: African American GFR (CKD) 90 (>60 ml/min/1.73 sqM); Blood Urea Nitrogen 22 mg/dL (7-17); Non-African American GFR(CKD) 78 (>60 ml/min/1.73 sqM)
--- NOTE | 2024-06-12 15:17 | CT ---
EXAMINATION TYPE: CT angio head neck DATE OF EXAM: 06/12/2024 COMPARISON: 01/31/2020 CLINICAL INDICATION: Female, 83 years old with history of I65.8 OCCLUSION AND STENOSIS OF OTHER PRECE REBRAL; PHH, carotid stenosis TECHNIQUE: CTA scan of the head and neck is performed without and with IV Contrast, patient injected with 65cc mL of Isovue 370, axial images are obtained, coronal and sagittal reformatted images are r eviewed. 3D reconstructed images are created on an independent workstation and reviewed. CT DLP: 1241.[address] CTDI: mGy Automated exposure control for dose reduction was used. NASCET criteria was used in interpretation of this exam? FINDINGS: There are scattered moderate calcifications of the brachiocephalic origins but no significant stenosi s. There is marked calcification of the carotid bifurcations bilaterally, right greater than left. There is moderate 50-69% stenoses bilaterally unchanged compared to previous. Intracranially there is moderate calcification of the carotid siphons but no significant stenosis. Th ere is no sizable aneurysm, vascular malformation or occlusive disease intracranially.. IMPRESSION: 1. Moderate calcifications of the carotid bifurcations resulting in moderate 50-69% stenosis bilatera lly. No interval change compared to previous. 2. No significant occlusive disease, aneurysm or vascular malformation intracranially. [facility], , 06/12/2024 3:14 PM
== END | disposition home or self-care (01) ==
LOC: RADCTMAIN 12:37
PROVIDERS: ATTEND Internal Medicine Clinical Cardiac Electrophysiology
DX: I65.8 Occlusion and stenosis of other precerebral arteries (principal); I65.23 Occlusion and stenosis of bilateral carotid arteries
CPT/HCPCS: 82565; 84520; 70496; 70498; 36415; Q9967

== ENCOUNTER → 2024-11-05 | Outpatient (CLI) | payer MEDICARE, BC ==
[2024-11-05 09:42] LABS: African American GFR (CKD) >90 (>60 ml/min/1.73 sqM); Blood Urea Nitrogen 20 mg/dL (7-17); Non-African American GFR(CKD) 83 (>60 ml/min/1.73 sqM)
--- NOTE | 2024-11-05 20:51 | CT ---
EXAMINATION TYPE: CT chest w con DATE OF EXAM: 11/05/2024 10:07 AM COMPARISON: None. CLINICAL INDICATION: Female, 84 years old with history of R06.00 DYSPNEA, UNSPECIFIED, COPD TECHNIQUE: Axial images were obtained at 5 mm thick sections. Reconstructed images are reviewed on [employer] computer in the coronal plane. Contrast used:100ml mL of Isovue 300 with IV Contrast, (none if empty) Oral contrast used: (none if empty) CT DLP: 390 mGycm, Automated exposure control for dose reduction was used. FINDINGS: Portion of the thyroid visualized is normal. There is fairly extensive pleural calcifications in the right lung. There is a large lenticular soft tissue density in the posterior right mid lung adjacent to pleural calcification margin measuring 4.7 x 2.0 cm. Previous measurement approximately 5.1 x 1.8 cm. There is a 0.6 cm pleural-based nodule in the posterior medial right apex. This was present previousl y. No enlarged mediastinal or hilar adenopathy is evident. The ascending aorta diameter at the level o f the main pulmonary artery is 3.0 cm. The main pulmonary artery diameter at the bifurcation is 2.5 cm. No significant coronary artery calcifications. Limited CT sections are obtained through the upper abdomen. Abdomen is essentially unremarkable. IMPRESSION: 1. Stable density posterior right lung with adjacent pleural calcification. 2. Stable medial right apical nodule [facility], , 11/05/2024 8:48 PM
== END | disposition home or self-care (01) ==
LOC: RADCTMAIN 09:11
PROVIDERS: ATTEND Internal Medicine Critical Care Medicine
DX: R91.1 Solitary pulmonary nodule (principal); J98.4 Other disorders of lung
CPT/HCPCS: 82565; 84520; 71260; 36415; Q9967